=== PATIENT | male | born 1935 | race Caucasian/White ===

== ENCOUNTER → 2016-04-03 | Outpatient (CLI) | payer MEDICARE, OTHER ==
[2016-04-03 11:01] LABS: HEMATOCRIT 41.1 % (37.9-51.0); HEMOGLOBIN 14.2 g/dL (13.5-17.0); HGB HCT DIFFERENCE 1.5; MEAN CORPUSCULAR HEMOGLOBIN 32.7 pg (27.0-33.4); MEAN CORPUSCULAR HGB CONC 34.5 g/dL (32.0-36.0); MEAN CORPUSCULAR VOLUME 95 fl (80-97); RED BLOOD COUNT 4.33 10^6/uL (4.35-5.55); WHITE BLOOD COUNT 8.9 10^3/uL (4.0-10.5)
[2016-04-06 11:18] LABS: ANION GAP 12 (5-19); BLOOD UREA NITROGEN 16 mg/dL (7-20); CALCIUM 9.6 mg/dL (8.4-10.2); CARBON DIOXIDE 27 mmol/L (22-30); CHLORIDE 103 mmol/L (98-107); GLUCOSE 173 mg/dL (75-110); POTASSIUM 4.9 mmol/L (3.6-5.0); SODIUM 142.2 mmol/L (137-145)
== END ==
LOC: OD 09:42
PROVIDERS: ATTEND Internal Medicine Clinical Cardiac Electrophysiology
DX: Z01.812 Encounter for preprocedural laboratory examination (principal); I48.2 Chronic atrial fibrillation; I42.0 Dilated cardiomyopathy; I50.22 Chronic systolic (congestive) heart failure; I49.5 Sick sinus syndrome; I25.10 Atherosclerotic heart disease of native coronary artery without angina pectoris; E78.00 Pure hypercholesterolemia, unspecified; Z95.0 Presence of cardiac pacemaker
CPT/HCPCS: 36415; 80048; 85027; 85610

== ENCOUNTER → 2016-04-26 | Outpatient (CLI) | payer MEDICARE, OTHER ==
[2016-04-26 12:31] LABS: ABSOLUTE EOSINOPHILS # (AUTO) 0.2 10^3/uL (0.0-0.6); ABSOLUTE LYMPHOCYTES (AUTO) 1.6 10^3/uL (0.5-4.7); ABSOLUTE MONOCYTES (AUTO) 0.4 10^3/uL (0.1-1.4); ABSOLUTE NEUT (AUTO) 4.7 10^3/uL (1.7-8.2); BASOPHILS % (AUTO) 0.6 % (0-2); EOSINOPHILS % (AUTO) 3.4 % (0-6); HEMATOCRIT 43.4 % (37.9-51.0); HEMOGLOBIN 13.9 g/dL (13.5-17.0); HGB HCT DIFFERENCE -1.7; LYMPHOCYTES % (AUTO) 22.6 % (13-45); MEAN CORPUSCULAR HEMOGLOBIN 31.4 pg (27.0-33.4); MEAN CORPUSCULAR HGB CONC 32.1 g/dL (32.0-36.0); MEAN CORPUSCULAR VOLUME 98 fl (80-97); MONOCYTES % (AUTO) 6.4 % (3-13); RED BLOOD COUNT 4.44 10^6/uL (4.35-5.55); RED CELL DISTRIBUTION WIDTH 14.3 % (11.5-14.0)
[2016-04-26 12:45] LABS: APPEARANCE,URINE CLEAR; BILIRUBIN,URINE NEGATIVE (NEGATIVE); GLUCOSE, URINE NEGATIVE (NEGATIVE); KETONES,URINE NEGATIVE (NEGATIVE); LEUKOCYTE ESTERASE,URINE SMALL (NEGATIVE); NITRITE,URINE NEGATIVE (NEGATIVE); PROTEIN,URINE NEGATIVE (NEGATIVE)
[2016-04-26 12:49] LABS: ALANINE AMINOTRANSFERASE 25 U/L (21-72); ALBUMIN 4.2 g/dL (3.5-5.0); ALKALINE PHOSPHATASE 70 U/L (38-126); ANION GAP 15 (5-19); ASPARTATE AMINO TRANSFERASE 18 U/L (17-59); BILIRUBIN,TOTAL 1.9 mg/dL (0.2-1.3); BLOOD UREA NITROGEN 20 mg/dL (7-20); CALCIUM 9.6 mg/dL (8.4-10.2); CARBON DIOXIDE 26 mmol/L (22-30); CHLORIDE 102 mmol/L (98-107); CREATININE RESULT 1.21 mg/dL (0.52-1.25); GLUCOSE 143 mg/dL (75-110); POTASSIUM 4.9 mmol/L (3.6-5.0); SODIUM 142.8 mmol/L (137-145); TOTAL PROTEIN 7.2 g/dL (6.3-8.2)
== END ==
LOC: OD 11:25
PROVIDERS: ATTEND Internal Medicine Cardiovascular Disease
DX: Z79.01 Long term (current) use of anticoagulants (principal); Z79.899 Other long term (current) drug therapy
CPT/HCPCS: 36415; 80048; 80076; 81001; 82272; 85025; 85730

== ENCOUNTER → 2016-07-02 | Outpatient (CLI) | payer MEDICARE, OTHER | LOC: OD 09:02 | PROVIDERS: ATTEND Internal Medicine Cardiovascular Disease | DX: R06.02 Shortness of breath (principal) | CPT/HCPCS: 36415; 83880 ==

== ENCOUNTER → 2016-07-17 | Outpatient (CLI) | payer MEDICARE, OTHER ==
[2016-07-17 13:54] LABS: ABSOLUTE EOSINOPHILS # (AUTO) 0.2 10^3/uL (0.0-0.6); ABSOLUTE LYMPHOCYTES (AUTO) 1.6 10^3/uL (0.5-4.7); ABSOLUTE MONOCYTES (AUTO) 0.5 10^3/uL (0.1-1.4); ABSOLUTE NEUT (AUTO) 6.1 10^3/uL (1.7-8.2); BASOPHILS % (AUTO) 0.5 % (0-2); EOSINOPHILS % (AUTO) 2.6 % (0-6); HEMOGLOBIN 13.6 g/dL (13.5-17.0); HGB HCT DIFFERENCE 1.8; LYMPHOCYTES % (AUTO) 19.4 % (13-45); MEAN CORPUSCULAR HEMOGLOBIN 32.9 pg (27.0-33.4); MEAN CORPUSCULAR HGB CONC 34.9 g/dL (32.0-36.0); MEAN CORPUSCULAR VOLUME 94 fl (80-97); MONOCYTES % (AUTO) 6.3 % (3-13); RED BLOOD COUNT 4.14 10^6/uL (4.35-5.55); RED CELL DISTRIBUTION WIDTH 14.3 % (11.5-14.0); SEGMENTED NEUTROPHILS % (AUTO) 71.2 % (42-78); WHITE BLOOD COUNT 8.5 10^3/uL (4.0-10.5)
[2016-07-17 14:15] LABS: APPEARANCE,URINE CLEAR; BILIRUBIN,URINE NEGATIVE (NEGATIVE); GLUCOSE, URINE NEGATIVE (NEGATIVE); KETONES,URINE NEGATIVE (NEGATIVE); LEUKOCYTE ESTERASE,URINE TRACE (NEGATIVE); NITRITE,URINE NEGATIVE (NEGATIVE); PROTEIN,URINE NEGATIVE (NEGATIVE); URINE SPECIFIC GRAVITY 1.014
[2016-07-17 14:18] LABS: ALANINE AMINOTRANSFERASE 35 U/L (21-72); ALBUMIN 4.3 g/dL (3.5-5.0); ALKALINE PHOSPHATASE 59 U/L (38-126); ANION GAP 12 (5-19); ASPARTATE AMINO TRANSFERASE 27 U/L (17-59); BILIRUBIN,DIRECT 0.3 mg/dL (0.0-0.4); BILIRUBIN,TOTAL 2.6 mg/dL (0.2-1.3); BLOOD UREA NITROGEN 17 mg/dL (7-20); CALCIUM 9.4 mg/dL (8.4-10.2); CARBON DIOXIDE 24 mmol/L (22-30); CHLORIDE 106 mmol/L (98-107); GLUCOSE 100 mg/dL (75-110); POTASSIUM 4.6 mmol/L (3.6-5.0); SODIUM 142.2 mmol/L (137-145); TOTAL PROTEIN 6.8 g/dL (6.3-8.2)
== END ==
LOC: OD 12:25
PROVIDERS: ATTEND Internal Medicine Cardiovascular Disease
DX: Z79.01 Long term (current) use of anticoagulants (principal); Z79.899 Other long term (current) drug therapy
CPT/HCPCS: 36415; 80048; 80076; 81001; 82272; 85025; 85730

== ENCOUNTER → 2016-08-23 | Outpatient (CLI) | payer MEDICARE, OTHER ==
[2016-08-23 10:16] LABS: ANION GAP 12 (5-19); BLOOD UREA NITROGEN 19 mg/dL (7-20); CALCIUM 9.6 mg/dL (8.4-10.2); CARBON DIOXIDE 27 mmol/L (22-30); CHLORIDE 103 mmol/L (98-107); CREATININE RESULT 1.32 mg/dL (0.52-1.25); GLUCOSE 133 mg/dL (75-110); POTASSIUM 4.4 mmol/L (3.6-5.0)
[2016-08-23 10:17] LABS: ALANINE AMINOTRANSFERASE 35 U/L (21-72); ALBUMIN 4.3 g/dL (3.5-5.0); ALKALINE PHOSPHATASE 58 U/L (38-126); ASPARTATE AMINO TRANSFERASE 23 U/L (17-59); BILIRUBIN,DIRECT 0.6 mg/dL (0.0-0.4); BILIRUBIN,TOTAL 2.3 mg/dL (0.2-1.3); CHOLESTEROL 124.22 mg/dL (0-200); DIGOXIN 0.51 ng/mL (0.8-2.0); Direct HDL 29 mg/dL (>40); MAGNESIUM 2.4 mg/dL (1.6-2.3); TOTAL PROTEIN 7.4 g/dL (6.3-8.2); TRIGLYCERIDES 122 mg/dL (<150)
[2016-08-23 10:26] LABS: DIRECT LDL 66 mg/dL (<100)
== END ==
LOC: OD 08:46
PROVIDERS: ATTEND Internal Medicine Cardiovascular Disease
DX: E78.2 Mixed hyperlipidemia (principal); I50.22 Chronic systolic (congestive) heart failure; Z79.899 Other long term (current) drug therapy
CPT/HCPCS: 36415; 80048; 80061; 80076; 80162; 83735

== ENCOUNTER → 2016-09-24 | Outpatient (CLI) | payer MEDICARE, OTHER ==
[2016-09-24 10:43] LABS: ANION GAP 11 (5-19); BLOOD UREA NITROGEN 18 mg/dL (7-20); CALCIUM 9.4 mg/dL (8.4-10.2); CARBON DIOXIDE 27 mmol/L (22-30); CHLORIDE 104 mmol/L (98-107); CREATININE RESULT 1.15 mg/dL (0.52-1.25); GLUCOSE 128 mg/dL (75-110); MAGNESIUM 2.4 mg/dL (1.6-2.3); POTASSIUM 4.9 mmol/L (3.6-5.0); SODIUM 142.3 mmol/L (137-145)
== END ==
LOC: OD 09:18
PROVIDERS: ATTEND Internal Medicine Cardiovascular Disease
DX: N18.3 Chronic kidney disease, stage 3 (moderate) (principal); Z79.899 Other long term (current) drug therapy
CPT/HCPCS: 36415; 80048; 83735

== ENCOUNTER → 2016-11-14 | Outpatient (CLI) | payer MEDICARE, OTHER ==
[2016-11-14 10:40] LABS: ABSOLUTE EOSINOPHILS # (AUTO) 0.3 10^3/uL (0.0-0.6); ABSOLUTE LYMPHOCYTES (AUTO) 1.7 10^3/uL (0.5-4.7); ABSOLUTE MONOCYTES (AUTO) 0.5 10^3/uL (0.1-1.4); ABSOLUTE NEUT (AUTO) 4.8 10^3/uL (1.7-8.2); BASOPHILS % (AUTO) 0.6 % (0-2); EOSINOPHILS % (AUTO) 3.6 % (0-6); HEMATOCRIT 41.5 % (37.9-51.0); HEMOGLOBIN 14.3 g/dL (13.5-17.0); HGB HCT DIFFERENCE 1.4; LYMPHOCYTES % (AUTO) 23.4 % (13-45); MEAN CORPUSCULAR HEMOGLOBIN 33.6 pg (27.0-33.4); MEAN CORPUSCULAR HGB CONC 34.4 g/dL (32.0-36.0); MEAN CORPUSCULAR VOLUME 98 fl (80-97); MONOCYTES % (AUTO) 7.1 % (3-13); RED BLOOD COUNT 4.26 10^6/uL (4.35-5.55); RED CELL DISTRIBUTION WIDTH 14.2 % (11.5-14.0); SEGMENTED NEUTROPHILS % (AUTO) 65.3 % (42-78); WHITE BLOOD COUNT 7.4 10^3/uL (4.0-10.5)
[2016-11-14 10:43] LABS: APPEARANCE,URINE CLEAR; BILIRUBIN,URINE NEGATIVE (NEGATIVE); GLUCOSE, URINE NEGATIVE (NEGATIVE); KETONES,URINE NEGATIVE (NEGATIVE); LEUKOCYTE ESTERASE,URINE TRACE (NEGATIVE); NITRITE,URINE NEGATIVE (NEGATIVE); PROTEIN,URINE NEGATIVE (NEGATIVE); URINE SPECIFIC GRAVITY 1.014
[2016-11-14 11:03] LABS: ALANINE AMINOTRANSFERASE 29 U/L (21-72); ALBUMIN 4.4 g/dL (3.5-5.0); ALKALINE PHOSPHATASE 63 U/L (38-126); ANION GAP 10 (5-19); ASPARTATE AMINO TRANSFERASE 25 U/L (17-59); BILIRUBIN,DIRECT 0.6 mg/dL (0.0-0.4); BILIRUBIN,TOTAL 2.6 mg/dL (0.2-1.3); BLOOD UREA NITROGEN 18 mg/dL (7-20); CALCIUM 9.7 mg/dL (8.4-10.2); CARBON DIOXIDE 29 mmol/L (22-30); CHLORIDE 103 mmol/L (98-107); CREATININE RESULT 1.13 mg/dL (0.52-1.25); GLUCOSE 120 mg/dL (75-110); POTASSIUM 4.9 mmol/L (3.6-5.0); SODIUM 141.6 mmol/L (137-145); TOTAL PROTEIN 7.5 g/dL (6.3-8.2)
== END ==
LOC: OD 09:09
PROVIDERS: ATTEND Internal Medicine Cardiovascular Disease
DX: Z79.01 Long term (current) use of anticoagulants (principal); Z79.899 Other long term (current) drug therapy
CPT/HCPCS: 36415; 80048; 80076; 81001; 82272; 85025; 85730

== ENCOUNTER → 2017-03-20 | Outpatient (CLI) | payer MEDICARE, OTHER ==
[2017-03-20 11:39] LABS: Direct HDL 26 mg/dL (>40); TRIGLYCERIDES 153 mg/dL (<150)
[2017-03-20 11:49] LABS: DIRECT LDL 78 mg/dL (<100)
[2017-03-20 11:53] LABS: VLDL CHOLESTEROL 30.6 mg/dL (10-31)
== END ==
LOC: OD 10:26
PROVIDERS: ATTEND Internal Medicine Cardiovascular Disease
DX: I25.10 Atherosclerotic heart disease of native coronary artery without angina pectoris (principal); E78.2 Mixed hyperlipidemia
CPT/HCPCS: 36415; 80061

== ENCOUNTER → 2017-04-30 | Outpatient (CLI) | payer MEDICARE, OTHER ==
[2017-04-30 11:00] LABS: ABSOLUTE EOSINOPHILS # (AUTO) 0.3 10^3/uL (0.0-0.6); ABSOLUTE LYMPHOCYTES (AUTO) 1.6 10^3/uL (0.5-4.7); ABSOLUTE MONOCYTES (AUTO) 0.6 10^3/uL (0.1-1.4); ABSOLUTE NEUT (AUTO) 5.8 10^3/uL (1.7-8.2); BASOPHILS % (AUTO) 0.4 % (0-2); EOSINOPHILS % (AUTO) 3.5 % (0-6); HEMATOCRIT 40.8 % (37.9-51.0); HEMOGLOBIN 14.4 g/dL (13.5-17.0); LYMPHOCYTES % (AUTO) 19.4 % (13-45); MEAN CORPUSCULAR HEMOGLOBIN 33.6 pg (27.0-33.4); MEAN CORPUSCULAR HGB CONC 35.3 g/dL (32.0-36.0); MEAN CORPUSCULAR VOLUME 95 fl (80-97); MONOCYTES % (AUTO) 7.2 % (3-13); PLATELET COUNT 123 10^3/uL (150-450); RED BLOOD COUNT 4.28 10^6/uL (4.35-5.55); RED CELL DISTRIBUTION WIDTH 14.2 % (11.5-14.0); SEGMENTED NEUTROPHILS % (AUTO) 69.5 % (42-78); TOTAL CELLS COUNTED % (AUTO) 100 %; WHITE BLOOD COUNT 8.3 10^3/uL (4.0-10.5)
[2017-04-30 11:08] LABS: APPEARANCE,URINE CLEAR; BILIRUBIN,URINE NEGATIVE (NEGATIVE); COLOR,URINE STRAW; GLUCOSE, URINE NEGATIVE (NEGATIVE); KETONES,URINE NEGATIVE (NEGATIVE); LEUKOCYTE ESTERASE,URINE NEGATIVE (NEGATIVE); NITRITE,URINE NEGATIVE (NEGATIVE); PROTEIN,URINE NEGATIVE (NEGATIVE); URINE SPECIFIC GRAVITY 1.005; UROBILINOGEN,URINE NEGATIVE mg/dL (<2.0)
[2017-04-30 12:18] LABS: ALANINE AMINOTRANSFERASE 25 U/L (21-72); ALBUMIN 4.6 g/dL (3.5-5.0); ALKALINE PHOSPHATASE 59 U/L (38-126); ANION GAP 12 (5-19); ASPARTATE AMINO TRANSFERASE 24 U/L (17-59); BILIRUBIN,DIRECT 0.3 mg/dL (0.0-0.4); BLOOD UREA NITROGEN 18 mg/dL (7-20); CALCIUM 9.6 mg/dL (8.4-10.2); CARBON DIOXIDE 23 mmol/L (22-30); CHLORIDE 104 mmol/L (98-107); GLUCOSE 100 mg/dL (75-110); POTASSIUM 4.3 mmol/L (3.6-5.0); SODIUM 138.9 mmol/L (137-145); TOTAL PROTEIN 7.4 g/dL (6.3-8.2)
== END ==
LOC: OD 09:55
PROVIDERS: ATTEND Internal Medicine Cardiovascular Disease
DX: I48.2 Chronic atrial fibrillation (principal); Z79.01 Long term (current) use of anticoagulants; Z79.899 Other long term (current) drug therapy
CPT/HCPCS: 36415; 80048; 80076; 81001; 82272; 85025; 85730

== ENCOUNTER → 2017-05-13 | Outpatient (CLI) | payer MEDICARE, OTHER ==
[2017-05-13 12:42] LABS: ANION GAP 10 (5-19); BLOOD UREA NITROGEN 17 mg/dL (7-20); CALCIUM 9.9 mg/dL (8.4-10.2); CARBON DIOXIDE 28 mmol/L (22-30); CHLORIDE 103 mmol/L (98-107); GLUCOSE 84 mg/dL (75-110); POTASSIUM 4.9 mmol/L (3.6-5.0); SODIUM 140.8 mmol/L (137-145)
== END ==
LOC: OD 10:35
PROVIDERS: ATTEND Internal Medicine Cardiovascular Disease
DX: I50.22 Chronic systolic (congestive) heart failure (principal); R06.02 Shortness of breath; I48.2 Chronic atrial fibrillation
CPT/HCPCS: 36415; 80048; 83880

== ENCOUNTER → 2017-06-10 | Outpatient (CLI) | payer MEDICARE, OTHER ==
[2017-06-10 12:40] LABS: ANION GAP 10 (5-19); BLOOD UREA NITROGEN 18 mg/dL (7-20); CALCIUM 9.5 mg/dL (8.4-10.2); CARBON DIOXIDE 27 mmol/L (22-30); CHLORIDE 105 mmol/L (98-107); GLUCOSE 100 mg/dL (75-110); POTASSIUM 4.6 mmol/L (3.6-5.0)
== END ==
LOC: OD 10:32
PROVIDERS: ATTEND Internal Medicine Cardiovascular Disease
DX: I50.22 Chronic systolic (congestive) heart failure (principal); I48.0 Paroxysmal atrial fibrillation; R06.02 Shortness of breath
CPT/HCPCS: 36415; 80048; 83880

== ENCOUNTER 2017-06-28 23:05 | Inpatient (IN) | payer MEDICARE, OTHER ==
[2017-06-29] MEDS ORDERED: LEVOFLOXACIN 750 MG/D5W RTU 750 MG/150 ML RTUPB IV ONE (00:27)
[2017-06-29] MEDS ORDERED: NORMAL SALINE 1000 ML 500 ML IV PRN (00:32)
--- NOTE | 2017-06-29 00:32 | ER Document Report ---
ED GI/ - General Chief Complaint: Testicular Swelling Stated Complaint: TESTICULAR PAIN Time Seen by Provider: 06/29/17 00:27 Notes: History of complain-81 years old male presents today with 3 day history of right scrotal swelling redness, pain and fever. He thinks he must have scratched it. Denies any trauma. REVIEW OF SYSTEMS: CONSTITUTIONAL : chills, or sweats. Denies recent illness. EENT: Denies eye, ear, throat, or mouth pain or symptoms. Denies nasal or sinus congestion or discharge. Denies throat, tongue, or mouth swelling or difficulty swallowing. CARDIOVASCULAR: Denies chest pain. Denies palpitations or racing or irregular heart beat. Denies ankle edema. RESPIRATORY: Denies cough, cold, or chest congestion. Denies shortness of breath, difficulty breathing, or wheezing. GASTROINTESTINAL: Denies abdominal pain or distention. Denies nausea, vomiting , or diarrhea. Denies blood in vomitus, stools, or per rectum. Denies black, tarry stools. Denies constipation. GENITOURINARY: Denies difficulty urinating, painful urination, burning, frequency, blood in urine, or discharge. MUSCULOSKELETAL: Denies back or neck pain or stiffness. Denies joint pain or swelling. SKIN: Denies rash, lesions or sores. HEMATOLOGIC : Denies easy bruising or bleeding. LYMPHATIC: Denies swollen, enlarged glands. NEUROLOGICAL: Denies confusion or altered mental status. Denies passing out or loss of consciousness. Denies dizziness or lightheadedness. Denies headache. Denies weakness or paralysis or loss of use of either side. Denies problems with gait or speech. Denies sensory loss, numbness, or tingling. Denies seizures. PSYCHIATRIC: Denies anxiety or stress. Denies depression, suicidal ideation, or homicidal ideation. ALL OTHER SYSTEMS REVIEWED AND NEGATIVE. Dictation was performed using [employer] voice recognition software PHYSICAL EXAMINATION: GENERAL: Well-appearing, well-nourished and in no acute distress. HEAD: Atraumatic, normocephalic. EYES: Pupils equal round and reactive to light, extraocular movements intact, sclera anicteric, conjunctiva are normal. ENT: Nares patent, oropharynx clear without exudates. Moist mucous membranes. NECK: Normal range of motion, supple without lymphadenopathy LUNGS: Breath sounds clear to auscultation bilaterally and equal. No wheezes rales or rhonchi. HEART: Regular rate and rhythm without murmurs ABDOMEN: Soft, nontender, nondistended abdomen. No guarding, no rebound. No masses appreciated. Examination of genital-diffuse peritoneal, pubic region erythema was noted which is warm and tender to touch. Scrotal swelling particularly on the right side which is warm and tender to touch. Penile gland is edematous and erythematous is warm. Musculoskeletal: Normal range of motion, no pitting or edema. No cyanosis. NEUROLOGICAL: Cranial nerves grossly intact. Normal speech, normal gait. Normal sensory, motor exams PSYCH: Normal mood, normal affect. SKIN: Warm, Dry, normal turgor, no rashes or lesions noted. TRAVEL OUTSIDE OF THE [place] IN LAST 30 DAYS: No - Related Data Allergies/Adverse Reactions: acetaminophen [Acetaminophen] Allergy (Verified 11/17/11 12:46) aspirin [Aspirin] Allergy (Verified 11/17/11 12:46) Past Medical History - General Information source: Patient - Social History Smoking Status: Never Smoker Cigarette use (# per day): No Chew tobacco use (# tins/day): No Frequency of alcohol use: Rare Drug Abuse: None Family History: Reviewed & Not Pertinent - Past Medical History Cardiac Medical History: Reports: Hx Heart Attack - "silent", Hx Hypercholesterolemia, Hx Hypertension Past Surgical History: Reports: Hx Cardiac Surgery - triple bypass, pacemaker, Hx Cholecystectomy - Immunizations Hx Diphtheria, Pertussis, Tetanus Vaccination: No Review of Systems - Review of Systems Notes: As per history of complain Course - Re-evaluation Re-evalutation: 06/29/17 01:59 Case was discussed with the hospitalist service. Currently being admitted. Given IV Levaquin - Laboratory Result Diagrams: 06/29/17 00:35 06/29/17 00:35 Laboratory results interpreted by me: 06/29/17 06/29/17 06/29/17 00:35 00:35 00:35 WBC 20.6 H RBC 4.07 L RDW 14.6 H Plt Count 110 L Seg Neuts % (Manual) 79 H Band Neutrophils % 1 L Abs Neuts (Manual) 16.5 H PT 17.9 H BUN 25 H Creatinine 1.35 H Est GFR (Non-Af Amer) 50 L Glucose 137 H Total Bilirubin 5.5 H Direct Bilirubin 0.5 H - Diagnostic Test Radiology reviewed: Reports reviewed - Scrotal ultrasound reported by radiologist as Dino revealed no torsion. Discharge - Discharge Clinical Impression: Cellulitis of scrotum Condition: Fair Disposition: ADMITTED INPATIENT Unit Admitted: Medical Floor
[2017-06-29 00:55] LABS: HEMATOCRIT 39.5 % (37.9-51.0); HEMOGLOBIN 13.5 g/dL (13.5-17.0); MEAN CORPUSCULAR HEMOGLOBIN 33.2 pg (27.0-33.4); MEAN CORPUSCULAR HGB CONC 34.2 g/dL (32.0-36.0); MEAN CORPUSCULAR VOLUME 97 fl (80-97); PLATELET COUNT 110 10^3/uL (150-450); RED BLOOD COUNT 4.07 10^6/uL (4.35-5.55); RED CELL DISTRIBUTION WIDTH 14.6 % (11.5-14.0); WHITE BLOOD COUNT 20.6 10^3/uL (4.0-10.5)
[2017-06-29 00:59] LABS: INTERNATIONAL RATION (INR) 1.39; PROTHROMBIN TIME 17.9 SEC (11.4-15.4)
[2017-06-29 01:02] LABS: VENOUS BLOOD BASE EXCESS 2.3 mmol/L; VENOUS BLOOD PCO2 47.6 mmHg (35-63); VENOUS BLOOD PH 7.39 (7.30-7.42)
[2017-06-29 01:10] LABS: ALANINE AMINOTRANSFERASE 25 U/L (21-72); ALBUMIN 4.1 g/dL (3.5-5.0); ALKALINE PHOSPHATASE 55 U/L (38-126); ASPARTATE AMINO TRANSFERASE 18 U/L (17-59); BILIRUBIN,DIRECT 0.5 mg/dL (0.0-0.4); BILIRUBIN,TOTAL 5.5 mg/dL (0.2-1.3); BLOOD UREA NITROGEN 25 mg/dL (7-20); CALCIUM 9.2 mg/dL (8.4-10.2); CHLORIDE 102 mmol/L (98-107); GLUCOSE 137 mg/dL (75-110); POTASSIUM 4.2 mmol/L (3.6-5.0); SODIUM 138.8 mmol/L (137-145); TOTAL PROTEIN 6.9 g/dL (6.3-8.2)
[2017-06-29 01:12] LABS: ANION GAP 10 (5-19); CARBON DIOXIDE 27 mmol/L (22-30)
[2017-06-29 01:15] LABS: ABSOLUTE LYMPHOCYTES# (MANUAL) 2.9 10^3/uL (0.5-4.7); ABSOLUTE MONOCYTES # (MANUAL) 1.2 10^3/uL (0.1-1.4); ABSOLUTE NEUTROPHILS# (MANUAL) 16.5 10^3/uL (1.7-8.2); BAND NEUTROPHILS % (MANUAL) 1 % (3-5); BASOPHILS % (MANUAL) 0 % (0-2); EOSINOPHILS % (MANUAL) 0 % (0-6); LYMPHOCYTES % (MANUAL) 14 % (13-45); MONOCYTES % (MANUAL) 6 % (3-13); SEGMENTED NEUTROPHILS % (MAN) 79 % (42-78); TOTAL CELLS COUNTED 100
[2017-06-29 01:18] LABS: ANISOCYTOSIS SLIGHT; PLATELET COMMENT DECREASED; POIKILOCYTOSIS SLIGHT; POLYCHROMASIA SLIGHT; TEAR DROP CELLS SLIGHT; TOXIC GRANULATION SLIGHT
--- NOTE | 2017-06-29 01:39 | RADIOLOGY REPORT (SQ) ---
EXAM DESCRIPTION: U/S SCROTUM W/DOPPLER CLINICAL HISTORY: 81 years, Male, Rule out testicular torsion COMPARISON: None. LIMITATIONS: None. FINDINGS: 3.8 cm right testis, 4.6 cm left testis, and epididymides appear normal size, shape, echotexture, and vascularity. Large bilateral hydroceles measure up to 7 cm each. IMPRESSION: 1. Large bilateral hydroceles. 2. Normal testes. No evidence of torsion.
[2017-06-29] MEDS ORDERED: MAG HYDROX/AL HYDROX/SIMETH SUSP 30 ML UDCUP PO PRN (01:59)
[2017-06-29] MEDS ORDERED: MAGNESIUM HYDROXIDE SUSP 30 ML UDCUP PO PRN (01:59)
[2017-06-29] MEDS ORDERED: NORMAL SALINE 1000 ML 1,000 ML IV PRN (02:00)
[2017-06-29] MEDS ORDERED: KETOROLAC TROMETHAMINE INJ/PF 30 MG/1 ML SDV IV PRN (02:02)
[2017-06-29] MEDS ORDERED: DEXTROSE 40% GEL 15 GM TUBE PO PRN ×2 (03:32)
[2017-06-29] MEDS ORDERED: INSULIN LISPRO 100 UNIT/ML 3 ML VIAL SUBCUT PRN (03:32)
[2017-06-29] MEDS ORDERED: DEXTROSE 50%-WATER 25 GM/50 ML DISP.SYRIN IV PRN ×2 (03:32)
[2017-06-29] MEDS ORDERED: GLUCAGON,HUMAN RECOMB 1 MG INJ IM PRN (03:32)
--- NOTE | 2017-06-29 03:32 | PDOC H&P ---
History of Present Illness Admission Date/PCP: 06/29/17 02:22 ALEXANDER GORDON Patient complains of: Scrotal swelling and pain History of Present Illness: ARNEL DENG is a 81 year old male with a past medical history of diabetes, congestive heart failure, atrial fibrillation status post pacemaker placement and on Eliquis. Patient presents with 3 days of scrotal swelling and pain associated with fever. Denying change in urination or medications. In the emergency room is found to have bilateral hydrocele but negative for torsion. He started on empiric antibiotics and for the hospitalist for admission. Patient denies previous episode or recent antibiotic use. He otherwise feels well Past Medical History Cardiac Medical History: Reports: Atrial Fibrillation, Congestive Heart Failure , Myocardial Infarction - "silent", Hyperlipidema, Hypertension Endocrine Medical History: Reports: Diabetes Mellitus Type 2 Renal/ Medical History: Reports: None Malignancy Medical History: Reports: None GI Medical History: Reports: None Musculoskeltal Medical History: Reports: None Skin Medical History: Reports: None Psychiatric Medical History: Denies: Alcohol Dependency, Tobacco Dependency Traumatic Medical History: Reports: None Hematology: Reports: None Infectious Medical History: Reports: None Past Surgical History Past Surgical History: Reports: Cholecystectomy, Pacemaker Social History Information Source: Patient Smoking Status: Unknown if Ever Smoked Frequency of Alcohol Use: None Drugs: None - Advance Directive Resuscitation Status: Full Code Family History Family History: Hypertension Parental Family History Reviewed: Yes Children Family History Reviewed: Yes Sibling(s) Family History Reviewed.: Yes Medication/Allergy Home Medications: Cetirizine HCl [Zyrtec 10 mg Tablet] 10 mg PO DAILY 11/17/11 Clopidogrel Bisulfate [Plavix 75 Mg Tablet] 75 mg PO DAILY 11/17/11 Fish Oil/E/Fatty Acid5/[id number] [Flax, Fish & Borage Oil Sofgel] 1 each PO Furosemide [Lasix 20 mg Tablet] 20 mg PO QAM 11/17/11 Lisinopril [Prinivil 40 mg Tablet] 40 mg PO DAILY 11/17/11 Metoprolol Succinate [Toprol XL 100 mg Tablet] 100 mg PO DAILY 11/17/11 Allergies/Adverse Reactions: acetaminophen [Acetaminophen] Allergy (Verified 11/17/11 12:46) aspirin [Aspirin] Allergy (Verified 11/17/11 12:46) Review of Systems Constitutional: ABSENT: chills, fever(s), headache(s), weight gain, weight loss Eyes: ABSENT: visual disturbances Ears: ABSENT: hearing changes Cardiovascular: ABSENT: chest pain, dyspnea on exertion, edema, orthropnea, palpitations Respiratory: ABSENT: cough, hemoptysis Gastrointestinal: ABSENT: abdominal pain, constipation, diarrhea, hematemesis, hematochezia, nausea, vomiting Genitourinary: ABSENT: dysuria, hematuria Musculoskeletal: ABSENT: joint swelling Integumentary: ABSENT: rash, wounds Neurological: ABSENT: abnormal gait, abnormal speech, confusion, dizziness, focal weakness, syncope Psychiatric: ABSENT: anxiety, depression, homidical ideation, suicidal ideation Endocrine: ABSENT: cold intolerance, heat intolerance, polydipsia, polyuria Hematologic/Lymphatic: ABSENT: easy bleeding, easy bruising Physical Exam Vital Signs: Temp Pulse Resp BP Pulse Ox 20 128/48 H 95 06/29/17 02:06 06/29/17 03:01 06/29/17 03:01 General appearance: PRESENT: cooperative, mild distress, well-developed, well- nourished. ABSENT: disheveled Head exam: PRESENT: atraumatic, normocephalic Eye exam: PRESENT: conjunctiva pink, EOMI, PERRLA, scleral icterus. ABSENT: conjunctival injection Ear exam: PRESENT: normal external ear exam Mouth exam: PRESENT: moist, tongue midline Neck exam: ABSENT: carotid bruit, JVD, lymphadenopathy, thyromegaly Respiratory exam: PRESENT: clear to auscultation barbie. ABSENT: rales, rhonchi, wheezes Cardiovascular exam: PRESENT: RRR. ABSENT: diastolic murmur, rubs, systolic murmur Pulses: PRESENT: normal dorsalis pedis pul Vascular exam: PRESENT: normal capillary refill GI/Abdominal exam: PRESENT: normal bowel sounds, soft. ABSENT: distended, guarding, mass, organolmegaly, rebound, tenderness Rectal exam: PRESENT: deferred Gentrourinary exam: PRESENT: erythema, scrotal swelling, testicular tenderness. ABSENT: ecchymosis, lacerations, lesions, urethral discharge, indwelling catheter Extremities exam: PRESENT: +1 edema Musculoskeletal exam: PRESENT: ambulatory, full ROM. ABSENT: deformity, dislocation Neurological exam: PRESENT: alert, awake, oriented to person, oriented to place , oriented to time, oriented to situation, CN II-XII grossly intact. ABSENT: motor sensory deficit Psychiatric exam: PRESENT: appropriate affect, normal mood. ABSENT: homicidal ideation, suicidal ideation Skin exam: PRESENT: erythema, jaundice, warm. ABSENT: mottled, normal color, pallor, petechiae, rash, skin tears, urticaria, vesicles Results Impressions: Scrotum Ultrasound 06/29/17 00:29 IMPRESSION: 1. Large bilateral hydroceles. 2. Normal testes. No evidence of torsion. Assessment & Plan - Diagnosis (1) Cellulitis of scrotum Is this a current diagnosis for this admission?: Yes Plan: No open lesion or torsion, empiric antibiotics, elevation and follow-up CBC with blood culture. (2) Hyperbilirubinemia Is this a current diagnosis for this admission?: Yes Plan: Unclear cause we will discontinue diabetic oral hypoglycemic and reevaluate (3) Diabetes Is this a current diagnosis for this admission?: Yes Plan: Evaluate A1c and Humalog sliding scale as needed - Time Time Spent: 30 to 50 Minutes - Inpatient Certification Medical Necessity: Significant Comorbidiites Make Outpatient Treatment Too Risky , Need Close Monitoring Due to Risk of Patient Decompensation
[2017-06-29 04:40] LABS: APPEARANCE,URINE CLEAR; BILIRUBIN,URINE NEGATIVE (NEGATIVE); COLOR,URINE AMBER; GLUCOSE, URINE NEGATIVE (NEGATIVE)
[2017-06-29 04:41] LABS: KETONES,URINE NEGATIVE (NEGATIVE); LEUKOCYTE ESTERASE,URINE SMALL (NEGATIVE); NITRITE,URINE NEGATIVE (NEGATIVE); PROTEIN,URINE 30 mg/dL (NEGATIVE); URINE SPECIFIC GRAVITY 1.021
[2017-06-29 06:02] LABS: ABSOLUTE BASOPHILS # (AUTO) 0.1 10^3/uL (0.0-0.2); ABSOLUTE LYMPHOCYTES (AUTO) 1.7 10^3/uL (0.5-4.7); ABSOLUTE MONOCYTES (AUTO) 1.6 10^3/uL (0.1-1.4); ABSOLUTE NEUT (AUTO) 15.9 10^3/uL (1.7-8.2); BASOPHILS % (AUTO) 0.4 % (0-2); EOSINOPHILS % (AUTO) 0.1 % (0-6); HEMATOCRIT 37.1 % (37.9-51.0); HEMOGLOBIN 12.7 g/dL (13.5-17.0); LYMPHOCYTES % (AUTO) 8.8 % (13-45); MEAN CORPUSCULAR HEMOGLOBIN 33.1 pg (27.0-33.4); MEAN CORPUSCULAR HGB CONC 34.2 g/dL (32.0-36.0); MEAN CORPUSCULAR VOLUME 97 fl (80-97); MONOCYTES % (AUTO) 8.1 % (3-13); PLATELET COUNT 101 10^3/uL (150-450); RED BLOOD COUNT 3.83 10^6/uL (4.35-5.55); RED CELL DISTRIBUTION WIDTH 14.5 % (11.5-14.0); SEGMENTED NEUTROPHILS % (AUTO) 82.6 % (42-78); TOTAL CELLS COUNTED % (AUTO) 100 %; WHITE BLOOD COUNT 19.3 10^3/uL (4.0-10.5)
[2017-06-29] MEDS: HEPARIN SOD (PORCINE) 5,000 UNIT/ML 1 ML SYRINGE SUBCUT SCH ×2 (06:10→14:37)
[2017-06-29 06:37] LABS: ANION GAP 9 (5-19); BLOOD UREA NITROGEN 25 mg/dL (7-20); CALCIUM 9.1 mg/dL (8.4-10.2); CARBON DIOXIDE 25 mmol/L (22-30); CHLORIDE 102 mmol/L (98-107); GLUCOSE 115 mg/dL (75-110); POTASSIUM 4.2 mmol/L (3.6-5.0); SODIUM 136.4 mmol/L (137-145)
--- NOTE | 2017-06-29 09:14 | RADIOLOGY REPORT (SQ) ---
EXAM DESCRIPTION: CT ABD/PELVIS WITH IV ONLY COMPLETED DATE/TIME: 06/29/2017 9:01 am REASON FOR STUDY: elevated bilirubin COMPARISON: None. TECHNIQUE: CT scan of the abdomen and pelvis performed using helical scanning technique with dynamic intravenous contrast injection. No oral contrast. Images reviewed with lung, soft tissue, and bone windows. Reconstructed coronal and sagittal MPR images reviewed. Delayed images for evaluation of the urinary system also acquired. All images stored on PACS. All CT scanners at this facility use dose modulation, iterative reconstruction, and/or weight based d osing when appropriate to reduce radiation dose to as low as reasonably achievable (ALARA). [facility]: Dose Right [facility]: CareDose [facility]: Dose Right [facility]: Teradose 4D [facility]: [employer] CONTRAST TYPE AND DOSE: contrast/concentration: Isovue 370.00 mg/ml; Total Contrast Delivered: 100.0 ml; Total Saline Delivered: 72.1 ml RENAL FUNCTION: Creatinine 1.28 RADIATION DOSE: CT Rad equipment meets quality standard of care and radiation dose reduction techniq ues were employed. CTDIvol: 20.5 - 25.0 mGy. DLP: 2571 mGy-cm.. LIMITATIONS: None. FINDINGS: LOWER CHEST: No significant findings. No nodules or infiltrates. LIVER: Normal size. No masses. No dilated ducts. SPLEEN: Normal size. No focal lesions. PANCREAS: No masses. No significant calcifications. No adjacent inflammation or peripancreatic fluid collections. Pancreatic duct not dilated. GALLBLADDER: Surgically absent. ADRENAL GLANDS: No significant masses or asymmetry. RIGHT KIDNEY AND URETER: No solid masses. No significant calcifications. No hydronephrosis or hyd roureter. LEFT KIDNEY AND URETER: No solid masses. No significant calcifications. No hydronephrosis or hydr oureter. AORTA AND VESSELS: Calcification. Ectasia. No significant focal aneurysm. RETROPERITONEUM: No retroperitoneal adenopathy, hemorrhage or masses. BOWEL AND PERITONEAL CAVITY: No masses or inflammatory changes. No free fluid or peritoneal masses. APPENDIX: Not visualized. PELVIS: No mass. No free fluid. Normal bladder. ABDOMINAL WALL: No masses. No hernias. BONES: No significant or acute findings. OTHER: No other significant finding. IMPRESSION: NO SIGNIFICANT OR ACUTE FINDING IN THE ABDOMEN OR PELVIS ON CT SCAN WITH IV CONTRAST. TECHNICAL DOCUMENTATION: JOB ID: [id number] Quality ID # [id number]: Final reports with documentation of one or more dose reduction techniques (e.g., Au tomated exposure control, adjustment of the mA and/or kV according to patient size, use of iterative reconstruction technique) 2010 [employer]- All Rights Reserved Reading location - IP/workstation name: [email or web address]
[2017-06-29] MEDS: METOPROLOL SUCCINATE 50 MG TAB.SR.24H PO SCH (09:45)
--- NOTE | 2017-06-29 09:45 | PDOC PROGRESS REPORT ---
Subjective Progress Note for:: 06/29/17 Subjective:: The patient is resting in his bed. He seems to be a little confused although he is alert and oriented 3. He states he did not get any sleep last night and he is just tired at this point. He has not had any fever or shaking chills that he is aware of. No chest pain or heart palpitations. He does not complain of shortness of breath. No nausea vomiting or diarrhea. No urinary complaints. He does complain of significant scrotal pain. He states that it is worsened to the point that he had to present to the emergency room. Reason For Visit: SCROTAL CELLULITIS Physical Exam Vital Signs: Temp Pulse Resp BP Pulse Ox 29 H 121/57 L 92 06/29/17 09:00 06/29/17 07:01 06/29/17 09:00 Intake & Output 06/28/17 06/29/17 06/30/17 06:59 06:59 06:59 Weight 111.13 kg General appearance: PRESENT: no acute distress, obese, well-developed, well- nourished Head exam: PRESENT: atraumatic, normocephalic Mouth exam: PRESENT: moist, tongue midline Respiratory exam: PRESENT: clear to auscultation barbie. ABSENT: rales, rhonchi, wheezes Cardiovascular exam: PRESENT: RRR. ABSENT: diastolic murmur, rubs, systolic murmur GI/Abdominal exam: PRESENT: normal bowel sounds, soft, other - His abdomen is obese. ABSENT: distended, guarding, mass, organolmegaly, rebound, tenderness Rectal exam: PRESENT: deferred Gentrourinary exam: PRESENT: scrotal swelling, other - The patient has significant scrotal and penile erythema and swelling. His scrotum is tender to palpation bilaterally Extremities exam: PRESENT: other - The patient has mild pitting edema that extends up into his thighs. Musculoskeletal exam: PRESENT: ambulatory Neurological exam: PRESENT: alert, awake, oriented to person, oriented to place , oriented to time, oriented to situation, CN II-XII grossly intact. ABSENT: motor sensory deficit Psychiatric exam: PRESENT: appropriate affect, normal mood. ABSENT: homicidal ideation, suicidal ideation Skin exam: PRESENT: dry, intact, warm. ABSENT: cyanosis, rash Results Laboratory Results: 06/29/17 05:50 06/29/17 05:50 06/29/17 06/29/17 06/29/17 04:15 05:50 05:50 WBC 19.3 H RBC 3.83 L Hgb 12.7 L Hct 37.1 L MCV 97 MCH 33.1 MCHC 34.2 RDW 14.5 H Plt Count 101 L Seg Neutrophils % 82.6 H Lymphocytes % 8.8 L Monocytes % 8.1 Eosinophils % 0.1 Basophils % 0.4 Absolute Neutrophils 15.9 H Absolute Lymphocytes 1.7 Absolute Monocytes 1.6 H Absolute Eosinophils 0.0 Absolute Basophils 0.1 Sodium 136.4 L Potassium 4.2 Chloride 102 Carbon Dioxide 25 Anion Gap 9 BUN 25 H Creatinine 1.28 H Est GFR ( Amer) > 60 Est GFR (Non-Af Amer) 54 L Glucose 115 H Calcium 9.1 Urine Color FRANKI Urine Appearance CLEAR Urine pH 6.0 Ur Specific Dickens 1.021 Urine Protein 30 H Urine Glucose (UA) NEGATIVE Urine Ketones NEGATIVE Urine Blood NEGATIVE Urine Nitrite NEGATIVE Ur Leukocyte Esterase SMALL H Urine WBC (Auto) 10 Urine RBC (Auto) 3 Impressions: Scrotum Ultrasound 06/29/17 00:29 IMPRESSION: 1. Large bilateral hydroceles. 2. Normal testes. No evidence of torsion. Abdomen/Pelvis CT 06/29/17 08:19 IMPRESSION: NO SIGNIFICANT OR ACUTE FINDING IN THE ABDOMEN OR PELVIS ON CT SCAN WITH IV CONTRAST. Assessment & Plan - Diagnosis (1) Cellulitis of scrotum Is this a current diagnosis for this admission?: Yes Plan: For now he will continue IV Levaquin. This is the first full day of treatment. I have a low threshold for broadening his antibiotics if he does not improve. I have consulted urology for their recommendations and we certainly look forward to their input. (2) Hyperbilirubinemia Is this a current diagnosis for this admission?: Yes Plan: CT scan of the abdomen and pelvis was unremarkable. He will have a liver panel drawn tomorrow. This may be due to his acute illness or possibly medications. His oral anti-hypoglycemics have been held. (3) Diabetes Is this a current diagnosis for this admission?: Yes Plan: Continue sliding-scale insulin for now (4) Atrial fibrillation Qualifiers: Atrial fibrillation type: paroxysmal Qualified Code(s): I48.0 - Paroxysmal atrial fibrillation Is this a current diagnosis for this admission?: Yes Plan: The patient is on Eliquis for anticoagulation. Currently in a sinus rhythm and rate controlled. Continue metoprolol (5) Congestive heart failure (CHF) Is this a current diagnosis for this admission?: Yes Plan: There is no echocardiogram on file for this patient. I suspect due to his underlying diabetes that he has diastolic congestive heart failure. Currently he is euvolemic and there is no need for an echocardiogram. (6) Hyponatremia Is this a current diagnosis for this admission?: Yes Plan: This is quite mild. He will have a chemistry panel drawn in the morning. (7) Obesity (BMI 30-39.9) Is this a current diagnosis for this admission?: Yes Plan: The patient has a BMI of 36. Dietary discretion is advised. - Time Time Spent with patient: 25-34 minutes - Inpatient Certification Based on my medical assessment, after consideration of the patient's comorbidities, presenting symptoms, or acuity I expect that the services needed warrant INPATIENT care.: Yes I certify that my determination is in accordance with my understanding of Medicare's requirements for reasonable and necessary INPATIENT services [42 CFR 412.3e].: Yes Medical Necessity: Need for IV Antibiotics, Other - Inpatient hospitalization remains necessary. This gentleman has scrotal cellulitis. He needs evaluation from urology as well as ongoing parenteral antibiotics. Timing of disposition will be determined by his clinical course.
[2017-06-29] MEDS: CETIRIZINE 10 MG TABLET PO SCH (09:46)
[2017-06-29] MEDS: DOCUSATE SODIUM 100 MG CAPSULE PO SCH ×2 (09:47→17:26)
[2017-06-29] MEDS ORDERED: CLOPIDOGREL BISULFATE 75 MG TABLET PO SCH (10:00)
[2017-06-29] MEDS ORDERED: LISINOPRIL 10 MG TABLET PO ONE (10:15)
[2017-06-29] MEDS ORDERED: FUROSEMIDE 20 MG TABLET PO ONE (10:15)
--- NOTE | 2017-06-29 10:26 | EKG REPORT ---
SEVERITY:- ABNORMAL ECG - VENTRICULAR-PACED COMPLEXES NONSPECIFIC IVCD WITH LAD : Confirmed by: Jose Moreno MD 29-Jun-2017 10:25:43
[2017-06-29] MEDS ORDERED: VANCOMYCIN HCL 0 MG in DEXTROSE 5%-WATER 250 ML IV NR (15:15)
--- NOTE | 2017-06-29 15:16 | Progress Note ---
Provider Note Provider Note: I was called by the Urologist vision impaired teacher Dr. Stone informed me that he strongly suspects Khadijah's gangrene and recommends that the patient be taken to the OR as soon as possible. Unfortunately the patient had already eaten lunch. He will discuss the case with Dr. Pritchard. He will be made n.p.o. His antibiotics will be broadened. Vancomycin and meropenem have been added. I have also spoken to the manager rail on-call Dr. Leal to evaluate the patient for preop cardiology clearance given his history of congestive heart failure, pacemaker, atrial fibrillation on anticoagulation. A stat echo has been ordered.
--- NOTE | 2017-06-29 16:19 | Progress Note ---
Provider Note Provider Note: I was called by Dr. oakes at 4:15 pm. he told me that it seems to be a scrotal infection but not Khadijah's gangrene, and that he could be taken to the OR for incision and drainage in the am.
--- NOTE | 2017-06-29 16:26 | PDOC CONSULTATION ---
Consultation Consult Date: 06/29/17 Attending physician:: XU HENDERSON II Consult reason:: Rule out Khadijah's gangrene History of Present Illness Admission Date/PCP: 06/29/17 02:22 ALEXANDER OGRDON History of Present Illness: ARNEL DENG is a 81 year old male with a past medical history of diabetes, congestive heart failure, atrial fibrillation status post pacemaker placement and on Eliquis. Patient presents with 3 days of scrotal swelling and pain associated with fever. Denying change in urination or medications. In the emergency room is found to have bilateral hydrocele but negative for torsion. He started on empiric antibiotics and for the hospitalist for admission. Patient denies previous episode or recent antibiotic use. He otherwise feels well. The patient was seen today by Dr. Henderson, urologist, was concerned the patient might have Khadijah's gangrene. I saw the patient approximately 3:00 this afternoon. His walk around his room having some scrotal discomfort but appeared to be in no significant distress. Evaluation was performed and dictated below. Patient denies history of previous episodes of swelling, pain, infection, or history of trauma. Past Medical History Cardiac Medical History: Reports: Atrial Fibrillation, Congestive Heart Failure , Myocardial Infarction - "silent", Hyperlipidema, Hypertension Endocrine Medical History: Reports: Diabetes Mellitus Type 2 Renal/ Medical History: Reports: None Malignancy Medical History: Reports: None GI Medical History: Reports: None Musculoskeltal Medical History: Reports: None Skin Medical History: Reports: None Psychiatric Medical History: Denies: Alcohol Dependency, Tobacco Dependency Traumatic Medical History: Reports: None Hematology: Reports: None Infectious Medical History: Reports: None Past Surgical History Past Surgical History: Reports: Cholecystectomy, Pacemaker Social History Smoking Status: Former Smoker Frequency of Alcohol Use: None Hx Recreational Drug Use: No Drugs: None Hx Prescription Drug Abuse: No - Advance Directive Resuscitation Status: Full Code Family History Family History: Hypertension Parental Family History Reviewed: Yes Children Family History Reviewed: Yes Sibling(s) Family History Reviewed.: Yes Medication/Allergy Home Medications: Alirocumab [Praluent Pen] 150 mg PO [id number] 06/29/17 Apixaban [Eliquis 5 mg Tablet] 5 mg PO DAILY 06/29/17 Clopidogrel Bisulfate [Clopidogrel] 75 mg PO DAILY 06/29/17 Digoxin [Lanoxin 0.125 mg Tablet] 0.0625 mg PO DAILY 06/29/17 Ezetimibe [Zetia 10 mg Tablet] 10 mg PO DAILY 06/29/17 Furosemide [Lasix 40 mg Tablet] 60 mg PO QAM 06/29/17 Gabapentin [Neurontin 100 mg Capsule] 100 mg PO Q12 06/29/17 Glimepiride [Amaryl 1 mg Tablet] 1 mg PO DAILY 06/29/17 Losartan Potassium [Cozaar 50 mg Tablet] 50 mg PO DAILY 06/29/17 Metoprolol Succinate [Toprol XL 100 mg Tablet] 100 mg PO DAILY 06/29/17 Nitroglycerin [Nitro-Dur 5 mg (0.2 mg/Hr) Transdermal Patch] 1 patch TD DAILY 06/29/17 Sacubitril/Valsartan [Entresto 49 mg-51 mg Tablet] 1 tab PO Q12 06/29/17 Allergies/Adverse Reactions: acetaminophen [Acetaminophen] Allergy (Verified 11/17/11 12:46) aspirin [Aspirin] Allergy (Verified 11/17/11 12:46) Review of Systems Eyes: ABSENT: visual disturbances Ears: ABSENT: hearing changes Cardiovascular: ABSENT: chest pain, dyspnea on exertion, edema, orthropnea, palpitations Physical Exam Vital Signs: Temp Pulse Resp BP Pulse Ox 98.7 F 60 16 118/48 L 96 06/29/17 11:00 06/29/17 11:00 06/29/17 11:00 06/29/17 11:00 06/29/17 11:00 Intake & Output 06/28/17 06/29/17 06/30/17 06:59 06:59 06:59 Weight 111.13 kg 110.8 kg General appearance: PRESENT: mild distress Head exam: PRESENT: normocephalic Eye exam: PRESENT: other - Mild icterus Mouth exam: PRESENT: dry mucosa Respiratory exam: PRESENT: other - Pacer and subclavian position GI/Abdominal exam: PRESENT: other - Soft nontender no peritoneal signs no rigidity. Gentrourinary exam: PRESENT: erythema - Swelling bilaterally of the scrotum; there is generalized edema more on the right hemiscrotum is thickening towards the cord structures. Landmarks are a bit distorted; some drainage along the posterior lateral aspect of the upper scrotum., other Neurological exam: PRESENT: alert, altered, awake, oriented to person, oriented to place Psychiatric exam: PRESENT: appropriate affect Results Laboratory Results: 06/29/17 05:50 06/29/17 05:50 06/29/17 06/29/17 06/29/17 04:15 05:50 05:50 WBC 19.3 H RBC 3.83 L Hgb 12.7 L Hct 37.1 L MCV 97 MCH 33.1 MCHC 34.2 RDW 14.5 H Plt Count 101 L Seg Neutrophils % 82.6 H Lymphocytes % 8.8 L Monocytes % 8.1 Eosinophils % 0.1 Basophils % 0.4 Absolute Neutrophils 15.9 H Absolute Lymphocytes 1.7 Absolute Monocytes 1.6 H Absolute Eosinophils 0.0 Absolute Basophils 0.1 Sodium 136.4 L Potassium 4.2 Chloride 102 Carbon Dioxide 25 Anion Gap 9 BUN 25 H Creatinine 1.28 H Est GFR ( Amer) > 60 Est GFR (Non-Af Amer) 54 L Glucose 115 H Calcium 9.1 Urine Color FRANKI Urine Appearance CLEAR Urine pH 6.0 Ur Specific [place] 1.021 Urine Protein 30 H Urine Glucose (UA) NEGATIVE Urine Ketones NEGATIVE Urine Blood NEGATIVE Urine Nitrite NEGATIVE Ur Leukocyte Esterase SMALL H Urine WBC (Auto) 10 Urine RBC (Auto) 3 Impressions: Scrotum Ultrasound 06/29/17 00:29 IMPRESSION: 1. Large bilateral hydroceles. 2. Normal testes. No evidence of torsion. Abdomen/Pelvis CT 06/29/17 08:19 IMPRESSION: NO SIGNIFICANT OR ACUTE FINDING IN THE ABDOMEN OR PELVIS ON CT SCAN WITH IV CONTRAST. Assessment & Plan - Diagnosis (1) Cellulitis of scrotum Is this a current diagnosis for this admission?: Yes Plan: Highly suspicious for underlying abscess of the right facial hemiscrotum; CT scan limited due to insufficient cuts in this area. Scrotal ultrasound showed no significant edema only incidental bilateral hydroceles; patient on 10a inhibitor, and just had 25% of his lunch according to nursing staff; he does have a leukocytosis, elevated total bilirubin Recommendations: 1. I reviewed the patient with Dr. Schuster, urologist. I have also discussed the patient with anesthesiologist. My impression is that the patient has a fairly uncomplicated abscess that needs drainage, and could wait until early Saturday morning after which time he is to be n.p.o., had time for the Eliquis to work its way out of his system, and the opportunity to evaluated by Dr. Leal. I have also discussed this recommendation with primary care provider. 2. We will keep patient n.p.o. IV fluids intravenous antibiotics which had been expanded for broader coverage; if patient deteriorates in the interim, then we will perform the operation emergently 3. Suspect hyperbilirubinemia may be related to sepsis; The extrahepatic biliary tree and liver appear unremarkable on abdominal CT scan; suggest repeating total bilirubin in the morning. - Time Time Spent: 50 to 70 Minutes Smoking Cessation Education: over 10 minutes - Inpatient Certification Based on my medical assessment, after consideration of the patient's comorbidities, presenting symptoms, or acuity I expect that the services needed warrant INPATIENT care.: Yes I certify that my determination is in accordance with my understanding of Medicare's requirements for reasonable and necessary INPATIENT services [42 CFR 412.3e].: Yes Medical Necessity: Need for Pain Control, Need for IV Antibiotics, Need for Surgery
--- NOTE | 2017-06-29 16:41 | PDOC CONSULTATION ---
Consultation Consult Date: 06/29/17 Attending physician:: BRIANNA GARCÍA Consult reason:: Preop cardiovascular examination History of Present Illness Admission Date/PCP: 06/29/17 02:22 ALEXANDERDemario SEAYNEY Patient complains of: Scrotal discomfort History of Present Illness: ARNEL DENG is a 81 year old male with a past medical history of diabetes, congestive heart failure, atrial fibrillation status post pacemaker placement and on Eliquis. Patient presents with 3 days of scrotal swelling and pain associated with fever. Denying change in urination or medications. In the emergency room is found to have bilateral hydrocele but negative for torsion. He started on empiric antibiotics and for the hospitalist for admission. Patient denies previous episode or recent antibiotic use. He otherwise feels well. The patient was seen today by Dr. 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 I saw the patient approximately 3:00 this afternoon. His walk around his room having some scrotal discomfort but appeared to be in no significant distress. Evaluation was performed and dictated below. Patient denies history of previous episodes of swelling, pain, infection, or history of trauma. This history obtained by the surgical list was reviewed and confirmed. Patient for preop cardiovascular clearance. Patient claims having had bypass surgery in 2006. Since then he denied any episodes of angina. He gives history of CHF. He also claims to have had a pacemaker placed in 2006. It is being regularly checked by Dr. Smith with the inferior heart and was told to be functioning normally in December 2016. He has a coming up pacemaker interrogation in the month of June. Patient has history of atrial fibrillation. He has some chronic shortness of breath and pedal edema left more than right but claims these are chronic. Twelve-lead EKG obtained this admission shows underlying atrial fibrillation and intermittent ventricular paced beats. On telemetry monitoring so far no evidence of pacemaker dysfunction was noted. Past Medical History Cardiac Medical History: Reports: Atrial Fibrillation, Congestive Heart Failure , Myocardial Infarction - "silent", Hyperlipidema, Hypertension Endocrine Medical History: Reports: Diabetes Mellitus Type 2 Renal/ Medical History: Reports: None Malignancy Medical History: Reports: None GI Medical History: Reports: None Musculoskeltal Medical History: Reports: None Skin Medical History: Reports: None Psychiatric Medical History: Denies: Alcohol Dependency, Tobacco Dependency Traumatic Medical History: Reports: None Hematology: Reports: None Infectious Medical History: Reports: None Past Surgical History Past Surgical History: Reports: Cholecystectomy, Coronary Artery Bypass Graft, Pacemaker Social History Information Source: Patient Smoking Status: Former Smoker Frequency of Alcohol Use: None Hx Recreational Drug Use: No Drugs: None Hx Prescription Drug Abuse: No - Advance Directive Resuscitation Status: Full Code Family History Family History: Hypertension Parental Family History Reviewed: Yes Children Family History Reviewed: Yes Sibling(s) Family History Reviewed.: Yes Medication/Allergy Home Medications: Alirocumab [Praluent Pen] 150 mg PO [id number] 06/29/17 Apixaban [Eliquis 5 mg Tablet] 5 mg PO DAILY 06/29/17 Clopidogrel Bisulfate [Clopidogrel] 75 mg PO DAILY 06/29/17 Digoxin [Lanoxin 0.125 mg Tablet] 0.0625 mg PO DAILY 06/29/17 Ezetimibe [Zetia 10 mg Tablet] 10 mg PO DAILY 06/29/17 Furosemide [Lasix 40 mg Tablet] 60 mg PO QAM 06/29/17 Gabapentin [Neurontin 100 mg Capsule] 100 mg PO Q12 06/29/17 Glimepiride [Amaryl 1 mg Tablet] 1 mg PO DAILY 06/29/17 Losartan Potassium [Cozaar 50 mg Tablet] 50 mg PO DAILY 06/29/17 Metoprolol Succinate [Toprol XL 100 mg Tablet] 100 mg PO DAILY 06/29/17 Nitroglycerin [Nitro-Dur 5 mg (0.2 mg/Hr) Transdermal Patch] 1 patch TD DAILY 06/29/17 Sacubitril/Valsartan [Entresto 49 mg-51 mg Tablet] 1 tab PO Q12 06/29/17 Allergies/Adverse Reactions: acetaminophen [Acetaminophen] Allergy (Verified 11/17/11 12:46) aspirin [Aspirin] Allergy (Verified 11/17/11 12:46) Review of Systems Review of Systems: Please see history of present illness and past medical history as wall. Constitutional: No fever or chills reported. Head : No recent chronic headaches, recent head injury. Eyes: No recent eye pain, diplopia, redness, discharge, acute visual changes. Ears: No recent chronic ear pain, acute hearing loss, ear discharge. Oral cavity: No recent ulcerations, bleeding, oral cavity discomfort. Neck: No recent acute neck pain reported. Hematologic: No recent easy bruising or bleeding or hematologic malignancy reported. Lymphatic: No recent lymphatic malignancy, chronic lymphadenopathy reported yet Cardiovascular system review: See history of present illness. Respiratory system review: No recent chronic cough, hemoptysis, blood clots in the lungs reported. Shortness of breath on exertion Gastrointestinal system review: Negative for any recent acute or chronic abdominal pain, hematemesis, melena, recent change in bowel habits. Genitourinary system review: No recent acute or chronic hematuria, flank pain, UTI etc. reported. Scrotal pain and swelling reported. Skin system review: Negative for any recent abnormal bruising, no rash, no pruritus reported. Neurologic: No prior history of strokes, mini strokes, seizure disorder. Psychologic: No history of major psychosis or major depression reported. Musculoskeletal: Minor aches and pains reported. No acute joint swelling reported. Endocrine: No recent polyuria, polydipsia, recent heat or cold intolerance. Physical Exam Vital Signs: Temp Pulse Resp BP Pulse Ox 98.7 F 60 16 118/48 L 96 06/29/17 11:00 06/29/17 11:00 06/29/17 11:00 06/29/17 11:06/29/17 11:00 Intake & Output 06/28/17 06/29/17 06/30/17 06:59 06:59 06:59 Weight 111.13 kg 110.8 kg Exam: GENERAL: well-nourished and in no acute distress. Alert and oriented x3 HEAD: Atraumatic, normocephalic. EYES: Pupils equal round and reactive to light, extraocular movements intact, sclera anicteric, conjunctiva are normal. ENT: TMs normal, nares patent, oropharynx clear without exudates. Moist mucous membranes. No oral ulcerations or bleeding gums noted NECK: supple without lymphadenopathy. Trachea is central. No cervical or axillary lymphadenopathy noted. Carotids are 2+, JVD WNL LUNGS: Respiration seems nonlabored, no significant accessory muscle action noted. Bibasilar fine crackles noted. No wheezes rales or rhonchi noted. No significant dullness noted on percussion. CHEST: Palpation of the chest wall shows no significant chest wall tenderness. No other significant abnormalities noted. HEART: [place] PRODUCTION TESTER, No PSH, 1/6 KIRBY aortic area, 1/6 mena systolic murmur mitral area, no rubs, no gallops. ABDOMEN: Soft, no significant tenderness appreciated, normoactive bowel sounds. No guarding, no rebound. No rigidity noted . No masses appreciated. EXTREMITIES: Pedal pulses are 1-2+, no calf tenderness noted. No clubbing or cyanosis. 1+ pedal edema noted. Left leg more than right NEUROLOGICAL: Focused neurological exam showed no significant neurologic deficit. Normal speech, no focal weakness appreciated. PSYCH: Normal mood, normal affect. Judgment and insight within normal limits. SKIN: No significant ecchymosis, skin is noted to be warm. MUSCULOSKELETAL EXAM: No significant acute joint swelling noted. Results Laboratory Results: 06/29/17 05:50 06/29/17 05:50 06/29/17 06/29/17 06/29/17 04:15 05:50 05:50 WBC 19.3 H RBC 3.83 L Hgb 12.7 L Hct 37.1 L MCV 97 MCH 33.1 MCHC 34.2 RDW 14.5 H Plt Count 101 L Seg Neutrophils % 82.6 H Lymphocytes % 8.8 L Monocytes % 8.1 Eosinophils % 0.1 Basophils % 0.4 Absolute Neutrophils 15.9 H Absolute Lymphocytes 1.7 Absolute Monocytes 1.6 H Absolute Eosinophils 0.0 Absolute Basophils 0.1 Sodium 136.4 L Potassium 4.2 Chloride 102 Carbon Dioxide 25 Anion Gap 9 BUN 25 H Creatinine 1.28 H Est GFR ( Amer) > 60 Est GFR (Non-Af Amer) 54 L Glucose 115 H Calcium 9.1 Urine Color FRANKI Urine Appearance CLEAR Urine pH 6.0 Ur Specific [place] 1.021 Urine Protein 30 H Urine Glucose (UA) NEGATIVE Urine Ketones NEGATIVE Urine Blood NEGATIVE Urine Nitrite NEGATIVE Ur Leukocyte Esterase SMALL H Urine WBC (Auto) 10 Urine RBC (Auto) 3 EKG Comments: Shows intermittent ventricular paced beats with underlying atrial fibrillation. Impressions: Scrotum Ultrasound 06/29/17 00:29 IMPRESSION: 1. Large bilateral hydroceles. 2. Normal testes. No evidence of torsion. Abdomen/Pelvis CT 06/29/17 08:19 IMPRESSION: NO SIGNIFICANT OR ACUTE FINDING IN THE ABDOMEN OR PELVIS ON CT SCAN WITH IV CONTRAST. Assessment & Plan - Diagnosis (1) Preoperative cardiovascular examination Is this a current diagnosis for this admission?: Yes (2) Cardiac pacemaker in situ Is this a current diagnosis for this admission?: Yes (3) Atrial fibrillation Qualifiers: Atrial fibrillation type: paroxysmal Qualified Code(s): I48.0 - Paroxysmal atrial fibrillation Is this a current diagnosis for this admission?: Yes (4) Cellulitis of scrotum Is this a current diagnosis for this admission?: Yes (5) Congestive heart failure (CHF) Qualifiers: Heart failure chronicity: unspecified Is this a current diagnosis for this admission?: Yes (6) Diabetes Qualifiers: Diabetes mellitus type: type 2 Diabetes mellitus terminal carman insulin use: unspecified terminal carman insulin use status Diabetes mellitus complication status : with unspecified complications Qualified Code(s): E11.8 - Type 2 diabetes mellitus with unspecified complications Is this a current diagnosis for this admission?: Yes (7) Obesity (BMI 30-39.9) Is this a current diagnosis for this admission?: Yes - Notes Notes: Preop cardiovascular examination: Patient for urgent surgery for scrotal gangrene. Currently patient seems stable from cardiac standpoint without any ongoing chest pain, no clinical CHF except for some mild pedal edema which is chronic. Patient does have chronic atrial fibrillation. Overall cardiovascular event risk is higher than average but not in the prohibitive range. Patient therefore cleared for surgery. Recommend DVT prophylaxis, reinstitution of chronic anticoagulation as soon as feasible from surgical standpoint. Cardiac pacemaker: Telemetry strips review shows normal functioning so far. Atrial fibrillation: Chronic, anticoagulation on hold. Resume chronic anticoagulation as soon as feasible. Congestive heart failure: Seems compensated by my exam. Patient does have some chronic pedal edema and chronic shortness of breath. On the abdominal CT, lung bases were available for review and did not show any evidence of congestion. Diabetes: Recommend good control. Avoid any hyper or hypoglycemia. Obesity: Currently stable. Patient will benefit from weight loss on a long- term basis. 2D echo was ordered but should not hold up surgery. - Time Time Spent: 30 to 50 Minutes - CODE STATUS was discussed, patient remains full code. Multiple medical problems were addressed. More than 50% of the time spent coordinating care, discussing management plans with involved caregivers. Management plans discussed with involved personnels. Medical decision making was of moderate to high complexity, patient's has multiple comorbidities. Medications reviewed and adjusted accordingly: Yes
[2017-06-29 16:53] LABS: INTERNATIONAL RATION (INR) 1.38; PARTIAL THROMBOPLASTIN TIME 53.5 SEC (23.5-35.8); PROTHROMBIN TIME 17.8 SEC (11.4-15.4)
--- NOTE | 2017-06-29 17:09 | RADIOLOGY REPORT (SQ) ---
EXAM DESCRIPTION: CHEST SINGLE VIEW COMPLETED DATE/TIME: 06/29/2017 4:58 pm REASON FOR STUDY: Preop COMPARISON: None. EXAM PARAMETERS: NUMBER OF VIEWS: One view. TECHNIQUE: Single frontal radiographic view of the chest acquired. RADIATION DOSE: NA LIMITATIONS: None. FINDINGS: LUNGS AND PLEURA: No acute infiltrates or effusions. Left pleural thickening. MEDIASTINUM AND HILAR STRUCTURES: No masses. Contour normal. HEART AND VASCULAR STRUCTURES: The heart is normal with normal pulmonary vasculature. Chronic left p leural thickening. Changes of CABG. BONES: No acute findings. HARDWARE: Pacemaker leads are in place. OTHER: No other significant finding. IMPRESSION: NO ACUTE DISEASE. TECHNICAL DOCUMENTATION: JOB ID: [id number] [email or web address]- All Rights Reserved Reading location - IP/workstation name: [email or web address]
[2017-06-29 17:13] LABS: PFA ADP 118 (56-106)
[2017-06-29 17:15] LABS: PFA EPI 92 (55-179)
[2017-06-29] MEDS: MEROPENEM 1 GM in NORMAL SALINE 100 ML IV SCH (17:25)
--- NOTE | 2017-06-29 19:43 | XCELERA REPORT ---
[address] [address] Transthoracic Echocardiogram Report Name: ARNEL DENG Age: 81 yrs Gender: Male : 1935 Patient Status: Inpatient Patient Location: [address] [place] [address] Study Date: 06/29/2017 05:04 PM Height: 69 in Weight: 245 lb BSA: 2.3 m2 Procedure: A complete two-dimensional transthoracic echocardiogram was performed (2D, M-mode, spectral and color flow Doppler). The study was technically difficult with many images being suboptimal in quality. Reason For Study: For emergent surgery Ordering Physician: BRIANNA GARCÍA Performed By: Evelyn Duvall Interpretation Summary The Ejection Fraction estimate is 45-50% Left ventricular systolic function is mildly reduced. Doppler measurements suggest pseudonormalized left ventricular relaxation, which is associated with grade II/IV or mild to moderate diastolic dysfunction There is borderline concentric left ventricular hypertrophy. The left ventricle is borderline dilated. There is mild global hypokinesis of the left ventricle. Regional wall motion abnormalities cannot be excluded due to limited visualization. The right ventricle is mildly dilated. The right ventricular systolic function is normal. The right atrium is mildly dilated. The left atrium is mildly dilated. There is no mitral valve stenosis. There is a mild amount of mitral regurgitation There is no aortic valve stenosis There is a mild amount of aortic regurgitation There is a trace or physiologic amount of tricuspid regurgitation Tricuspid regurgitation jet envelope not well defined to measure RV systolic pressure accurately. The aortic root is not well visualized. The inferior vena cava was not well visualized There is no pericardial effusion. MMode/2D Measurements & Calculations RVDd: 3.9 cm LVIDd: 5.8 cm FS: 22.5 % Ao root diam: 3.3 cm IVSd: 1.0 cm LVIDs: 4.5 cm EDV(Teich): 164.4 ml LVPWd: 1.0 cm ESV(Teich): 91.0 ml Ao root area: 8.3 cm2 EF(Teich): 44.7 % LA dimension: 4.2 cm Doppler Measurements & Calculations MV E max jeff: MV P1/2t max jeff: Ao V2 max: AI max jeff: 95.8 cm/sec 95.3 cm/sec 181.9 cm/sec 291.8 cm/sec MV P1/2t: 66.7 msec Ao max PG: AI max P.2 mmHg 34.1 mmHg MVA(P1/2t): 3.3 cm2 AI dec slope: MV dec slope: 418.3 cm/sec2 114.5 cm/sec2 AI P1/2t: 746.3 msec LV V1 max PG: PA V2 max: TR max jeff: 3.8 mmHg 91.8 cm/sec 198.2 cm/sec LV V1 max: PA max P.4 mmHg TR max P.2 cm/sec 15.7 mmHg Left Ventricle The left ventricle is borderline dilated. There is borderline concentric left ventricular hypertrophy. Left ventricular systolic function is mildly reduced. The Ejection Fraction estimate is 45-50%. Doppler measurements suggest pseudonormalized left ventricular relaxation, which is associated with grade II/IV or mild to moderate diastolic dysfunction. There is mild global hypokinesis of the left ventricle. Regional wall motion abnormalities cannot be excluded due to limited visualization. Right Ventricle The right ventricle is mildly dilated. There is normal right ventricular wall thickness. The right ventricular systolic function is normal. Atria The right atrium is mildly dilated. The left atrium is mildly dilated. Interarterial septum not well visualized and not well dopplered. Cannot comment on ASD/PFO presence. Mitral Valve The mitral valve leaflets are sclerotic, but show no functional abnormalities. There is no mitral valve stenosis. There is a mild amount of mitral regurgitation. Aortic Valve The aortic valve is not well visualized secondary to technical limitations. There is no aortic valve stenosis. There is a mild amount of aortic regurgitation. Tricuspid Valve The tricuspid valve is not well visualized secondary to technical limitations. There is no tricuspid stenosis. There is a trace or physiologic amount of tricuspid regurgitation. Tricuspid regurgitation jet envelope not well defined to measure RV systolic pressure accurately. Pulmonic Valve The pulmonic valve is not well visualized. Great Vessels The aortic root is not well visualized. The inferior vena cava was not well visualized. Effusions There is no pericardial effusion. : BRIANNA GARCÍA > Eri Leal
[2017-06-29] MEDS: VANCOMYCIN HCL 750 MG in DEXTROSE 5%-WATER 250 ML IV SCH (21:59)
[2017-06-30] MEDS: MEROPENEM 1 GM in NORMAL SALINE 100 ML IV SCH ×3 (02:20→17:36)
[2017-06-30 05:31] LABS: ALANINE AMINOTRANSFERASE 28 U/L (21-72); ALBUMIN 3.3 g/dL (3.5-5.0); ALKALINE PHOSPHATASE 53 U/L (38-126); ANION GAP 10 (5-19); ASPARTATE AMINO TRANSFERASE 24 U/L (17-59); BILIRUBIN,DIRECT 0.4 mg/dL (0.0-0.4); BILIRUBIN,TOTAL 3.4 mg/dL (0.2-1.3); BLOOD UREA NITROGEN 25 mg/dL (7-20); CALCIUM 9.1 mg/dL (8.4-10.2); CARBON DIOXIDE 25 mmol/L (22-30); CHLORIDE 103 mmol/L (98-107); GLUCOSE 124 mg/dL (75-110); POTASSIUM 4.2 mmol/L (3.6-5.0); SODIUM 138.4 mmol/L (137-145); TOTAL PROTEIN 5.7 g/dL (6.3-8.2)
[2017-06-30 05:44] LABS: ABSOLUTE BASOPHILS # (AUTO) 0.1 10^3/uL (0.0-0.2); ABSOLUTE EOSINOPHILS # (AUTO) 0.1 10^3/uL (0.0-0.6); ABSOLUTE LYMPHOCYTES (AUTO) 1.7 10^3/uL (0.5-4.7); ABSOLUTE MONOCYTES (AUTO) 1.6 10^3/uL (0.1-1.4); ABSOLUTE NEUT (AUTO) 14.3 10^3/uL (1.7-8.2); BASOPHILS % (AUTO) 0.3 % (0-2); EOSINOPHILS % (AUTO) 0.3 % (0-6); HEMATOCRIT 36.3 % (37.9-51.0); HEMOGLOBIN 12.4 g/dL (13.5-17.0); LYMPHOCYTES % (AUTO) 9.4 % (13-45); MEAN CORPUSCULAR HEMOGLOBIN 33.1 pg (27.0-33.4); MEAN CORPUSCULAR HGB CONC 34.1 g/dL (32.0-36.0); MEAN CORPUSCULAR VOLUME 97 fl (80-97); MONOCYTES % (AUTO) 9.1 % (3-13); RED BLOOD COUNT 3.73 10^6/uL (4.35-5.55); RED CELL DISTRIBUTION WIDTH 14.3 % (11.5-14.0); SEGMENTED NEUTROPHILS % (AUTO) 80.9 % (42-78); TOTAL CELLS COUNTED % (AUTO) 100 %; WHITE BLOOD COUNT 17.6 10^3/uL (4.0-10.5)
[2017-06-30 06:31] LABS: PLATELET COUNT 83 10^3/uL (150-450)
[2017-06-30] MEDS ORDERED: BUPIVACAINE HCL 0.25 % INJ/PF (2.5 MG/1 ML) 30 ML VIAL ONE (07:15)
[2017-06-30] MEDS ORDERED: LIDOCAINE 0.5% INJ-PF (5 MG/ML) 50 ML SDV ONE (07:15)
[2017-06-30] MEDS ORDERED: FENTANYL CITRATE INJ/PF 100 MCG/2 ML AMPUL ONE ×2 (07:49→07:50)
[2017-06-30] MEDS ORDERED: ONDANSETRON HCL INJ/PF 4 MG/2 ML SDV ONE (07:50)
[2017-06-30] MEDS ORDERED: MIDAZOLAM 2 MG/2 ML INJ ONE (07:50)
[2017-06-30] MEDS ORDERED: EPHEDRINE SULFATE INJ 50 MG/1 ML AMPULE ONE (07:50)
[2017-06-30] MEDS ORDERED: PROPOFOL INJ 200 MG/20 ML VIAL IV ONE (07:50)
[2017-06-30] MEDS: LEVOFLOXACIN 750 MG/D5W RTU 750 MG/150 ML RTUPB IV SCH (08:10)
[2017-06-30] MEDS: FUROSEMIDE 20 MG TABLET PO SCH (08:11)
[2017-06-30] MEDS ORDERED: ONDANSETRON HCL INJ/PF 4 MG/2 ML SDV IV PRN (08:20)
[2017-06-30] MEDS ORDERED: FENTANYL CITRATE INJ/PF 100 MCG/2 ML AMPUL IV PRN ×3 (08:20)
[2017-06-30] MEDS ORDERED: DIPHENHYDRAMINE HCL 50 MG/ML VIAL IV PRN (08:20)
--- NOTE | 2017-06-30 09:13 | Operative Report ---
Operative Report DATE OF SURGERY: 06/30/17 PREOPERATIVE DIAGNOSIS: Scrotal abscess POSTOPERATIVE DIAGNOSIS: Same OPERATION: Incision and drainage of scrotal abscess, intraoperative ultrasound of the scrotum. SURGEON: XU HENDERSON II 1ST VALUER: TAJ NEWMAN ANESTHESIA: LMAC TISSUE REMOVED OR ALTERED: Intraoperative wound culture ESTIMATED BLOOD LOSS: 50 cc INTRAOPERATIVE FINDINGS: Superficial abscess of the right hemiscrotum tracking from the mid scrotum inferiorly and superiorly to the upper scrotum. No apparent involvement of the right hydrocele, the right testicle or epididymis. No tracking superiorly or to the perineum PROCEDURE: The patient was taken to the operating room placed on the operating room table in the supine position. After adequate sedation, he was placed into the lithotomy position and prepped and draped in the usual sterile fashion. An incision was made in the mid scrotum on the right where some superficial purulence was encountered. Utilizing blunt dissection, this pocket was dissected to the upper scrotum and inferiorly to the dependent portion of the scrotum. A wound culture was obtained. Intraoperative ultrasonography was used to evaluate surrounding structures and to look for additional pockets of infection. None was found. There appeared to be a normal testicle with a normal epididymis on the right. No other pockets of purulence or cystic structures were noted. The wound was then irrigated with a large amount of saline. There was some bleeding noted from the skin edges with this was unable to be completely stopped due to the patient's anticoagulation. The wound was packed with iodoform and 4 x 4's. External dressings were held in place by a mesh dressing. The patient was returned to PACU in satisfactory condition. He tolerated the procedure well.
--- NOTE | 2017-06-30 09:15 | PDOC CONSULTATION ---
Consultation Consult Date: 06/29/17 Consult reason:: Hydrocele bilaterally, cellulitis History of Present Illness Admission Date/PCP: 06/29/17 02:22 ALEXANDER GORDON Past Medical History Cardiac Medical History: Reports: Atrial Fibrillation, Congestive Heart Failure , Myocardial Infarction - "silent", Hyperlipidema, Hypertension Endocrine Medical History: Reports: Diabetes Mellitus Type 2 Renal/ Medical History: Reports: None Malignancy Medical History: Reports: None GI Medical History: Reports: None Musculoskeltal Medical History: Reports: None Skin Medical History: Reports: None Psychiatric Medical History: Denies: Alcohol Dependency, Tobacco Dependency Traumatic Medical History: Reports: None Hematology: Reports: None Infectious Medical History: Reports: None Past Surgical History Past Surgical History: Reports: Cholecystectomy, Coronary Artery Bypass Graft, Pacemaker Social History Smoking Status: Former Smoker Frequency of Alcohol Use: None Hx Recreational Drug Use: No Drugs: None Hx Prescription Drug Abuse: No - Advance Directive Resuscitation Status: Full Code Family History Family History: Hypertension Parental Family History Reviewed: No Children Family History Reviewed: No Sibling(s) Family History Reviewed.: No Medication/Allergy Home Medications: Alirocumab [Praluent Pen] 150 mg PO [id number] 06/29/17 Apixaban [Eliquis 5 mg Tablet] 5 mg PO DAILY 06/29/17 Clopidogrel Bisulfate [Clopidogrel] 75 mg PO DAILY 06/29/17 Digoxin [Lanoxin 0.125 mg Tablet] 0.0625 mg PO DAILY 06/29/17 Ezetimibe [Zetia 10 mg Tablet] 10 mg PO DAILY 06/29/17 Furosemide [Lasix 40 mg Tablet] 60 mg PO QAM 06/29/17 Gabapentin [Neurontin 100 mg Capsule] 100 mg PO Q12 06/29/17 Glimepiride [Amaryl 1 mg Tablet] 1 mg PO DAILY 06/29/17 Losartan Potassium [Cozaar 50 mg Tablet] 50 mg PO DAILY 06/29/17 Metoprolol Succinate [Toprol XL 100 mg Tablet] 100 mg PO DAILY 06/29/17 Nitroglycerin [Nitro-Dur 5 mg (0.2 mg/Hr) Transdermal Patch] 1 patch TD DAILY 06/29/17 Sacubitril/Valsartan [Entresto 49 mg-51 mg Tablet] 1 tab PO Q12 06/29/17 Allergies/Adverse Reactions: acetaminophen [Acetaminophen] Allergy (Verified 11/17/11 12:46) aspirin [Aspirin] Allergy (Verified 11/17/11 12:46) Physical Exam Vital Signs: Temp Pulse Resp BP Pulse Ox 98.7 F 75 16 114/51 L 99 06/30/17 04:36 06/30/17 04:36 06/30/17 04:36 06/30/17 04:36 06/30/17 04:36 Intake & Output 06/29/17 06/30/17 07/01/17 06:59 06:59 06:59 Intake Total 1420 Output Total 200 Balance 1220 Weight 111.13 kg 111.6 kg Results Laboratory Results: 06/30/17 04:57 06/30/17 04:57 06/30/17 06/30/17 04:57 04:57 WBC 17.6 H RBC 3.73 L Hgb 12.4 L Hct 36.3 L MCV 97 MCH 33.1 MCHC 34.1 RDW 14.3 H Plt Count 83 L Seg Neutrophils % 80.9 H Lymphocytes % 9.4 L Monocytes % 9.1 Eosinophils % 0.3 Basophils % 0.3 Absolute Neutrophils 14.3 H Absolute Lymphocytes 1.7 Absolute Monocytes 1.6 H Absolute Eosinophils 0.1 Absolute Basophils 0.1 Sodium 138.4 Potassium 4.2 Chloride 103 Carbon Dioxide 25 Anion Gap 10 BUN 25 H Creatinine 1.42 H Est GFR ( Amer) 58 L Est GFR (Non-Af Amer) 48 L Glucose 124 H Calcium 9.1 Magnesium 2.3 Total Bilirubin 3.4 H AST 24 ALT 28 Alkaline Phosphatase 53 Total Protein 5.7 L Albumin 3.3 L Impressions: Scrotum Ultrasound 06/29/17 00:29 IMPRESSION: 1. Large bilateral hydroceles. 2. Normal testes. No evidence of torsion. Abdomen/Pelvis CT 06/29/17 08:19 IMPRESSION: NO SIGNIFICANT OR ACUTE FINDING IN THE ABDOMEN OR PELVIS ON CT SCAN WITH IV CONTRAST. Chest X-Ray 06/29/17 16:28 IMPRESSION: NO ACUTE DISEASE. Assessment & Plan - Diagnosis (1) Cellulitis of scrotum Is this a current diagnosis for this admission?: Yes Plan: Please refer to written consult found in the patient's physical chart. The dictation equipment would not work on the patient's nursing station or for so the consult was handwritten. Thank you
--- NOTE | 2017-06-30 09:18 | PDOC PROGRESS REPORT ---
Subjective Progress Note for:: 06/29/17 Subjective:: Follow-up visit at 2030 reveals no definite change in the cellulitis. There is no increase in swelling or in the affected area. He still has erythema just above the penis to the right and left inguinal areas and marked penile swelling. His postvoid residual however is 0 cc and no Tobar is planned at this time. Plan: Incision and drainage in the morning. Reason For Visit: SCROTAL CELLULITIS Physical Exam Vital Signs: Temp Pulse Resp BP Pulse Ox 98.7 F 75 16 114/51 L 99 06/30/17 04:36 06/30/17 04:36 06/30/17 04:36 06/30/17 04:36 06/30/17 04:36 Intake & Output 06/29/17 06/30/17 07/01/17 06:59 06:59 06:59 Intake Total 1420 Output Total 200 Balance 1220 Weight 111.13 kg 111.6 kg Results Laboratory Results: 06/30/17 04:57 06/30/17 04:57 06/30/17 06/30/17 04:57 04:57 WBC 17.6 H RBC 3.73 L Hgb 12.4 L Hct 36.3 L MCV 97 MCH 33.1 MCHC 34.1 RDW 14.3 H Plt Count 83 L Seg Neutrophils % 80.9 H Lymphocytes % 9.4 L Monocytes % 9.1 Eosinophils % 0.3 Basophils % 0.3 Absolute Neutrophils 14.3 H Absolute Lymphocytes 1.7 Absolute Monocytes 1.6 H Absolute Eosinophils 0.1 Absolute Basophils 0.1 Sodium 138.4 Potassium 4.2 Chloride 103 Carbon Dioxide 25 Anion Gap 10 BUN 25 H Creatinine 1.42 H Est GFR ( Amer) 58 L Est GFR (Non-Af Amer) 48 L Glucose 124 H Calcium 9.1 Magnesium 2.3 Total Bilirubin 3.4 H AST 24 ALT 28 Alkaline Phosphatase 53 Total Protein 5.7 L Albumin 3.3 L Impressions: Scrotum Ultrasound 06/29/17 00:29 IMPRESSION: 1. Large bilateral hydroceles. 2. Normal testes. No evidence of torsion. Abdomen/Pelvis CT 06/29/17 08:19 IMPRESSION: NO SIGNIFICANT OR ACUTE FINDING IN THE ABDOMEN OR PELVIS ON CT SCAN WITH IV CONTRAST. Chest X-Ray 06/29/17 16:28 IMPRESSION: NO ACUTE DISEASE. Assessment & Plan - Diagnosis (1) Cellulitis of scrotum Is this a current diagnosis for this admission?: Yes
--- NOTE | 2017-06-30 10:38 | Operative Report ---
Nonrecallable Operative Report DATE OF SURGERY: 06/30/17 PREOPERATIVE DIAGNOSIS: Right hemiscrotal cellulitis with abscess POSTOPERATIVE DIAGNOSIS: Same OPERATION: For operative focused ultrasound of the right scrotum. Assist with debridement of of right hemiscrotum SURGEON: TAJ NEWMAN 1ST BIOFUELS MANAGER: XU HENDERSON II ANESTHESIA: LMAC TISSUE REMOVED OR ALTERED: Pus COMPLICATIONS: None ESTIMATED BLOOD LOSS: 25 cc INTRAOPERATIVE FINDINGS: See below PROCEDURE: The patient was taken to the preop holding her to the main operating room where LMAC anesthesia was induced. The patient was placed in supine, anatomy position , scrotal and genitalia prepped and draped sterile fashion Surgical plan surgical timeout conducted. The principal portion of this operation was dictated by Dr. Henderson, urologist. After the principal incision was made draining the pus from the right jenifer- scrotum, we performed intraoperative ultrasonography with the variable frequency linear transducer. Objective was to ascertain whether there was any undrained pus in the hemiscrotum on the right, with a contralateral hemiscrotum on the left. Findings were significant for edema only; bilateral hydroceles, large, were again appreciated. The purulent infection appeared to be satisfactorily evacuated without any cavities of undrained pus. We did not enter the hydroceles or the tunica. The remainder the operation was dictated by Dr. Henderson.
[2017-06-30] MEDS: VANCOMYCIN HCL 750 MG in DEXTROSE 5%-WATER 250 ML IV SCH ×2 (11:15→22:51)
[2017-06-30] MEDS: CETIRIZINE 10 MG TABLET PO SCH (11:16)
[2017-06-30] MEDS: DOCUSATE SODIUM 100 MG CAPSULE PO SCH ×2 (11:16→17:36)
[2017-06-30] MEDS: LISINOPRIL 10 MG TABLET PO SCH (11:16)
[2017-06-30] MEDS: METOPROLOL SUCCINATE 50 MG TAB.SR.24H PO SCH (11:17)
[2017-06-30] MEDS ORDERED: HYDROCODONE/ACETAMINOPHEN 5-325 MG TABLET PO PRN (14:50)
[2017-06-30] MEDS ORDERED: MORPHINE SULFATE 10 MG/ML INJ IV PRN (14:51)
[2017-06-30] MEDS: OXYCODONE HCL IR 5 MG TABLET PO PRN (15:48)
--- NOTE | 2017-06-30 17:52 | PDOC PROGRESS REPORT ---
Subjective Progress Note for:: 06/30/17 Subjective:: The patient is an 81-year-old male with a past medical history significant for diabetes, congestive heart failure and atrial fibrillation. He is on chronic anticoagulation therapy with Eliquis. He has a pacemaker in place. Patient presented to the emergency room with scrotal swelling and pain associated with fever. He was admitted to the hospital for further evaluation and treatment. Urology was consulted and due to concerns for Khadijah's surgery consult was placed late yesterday afternoon. Today the patient went to the operating room with both Dr. Stone and Dr. Pritchard. The patient was found to have a superficial scrotal abscess which was drained. Today when I saw the patient it was post surgery. He still is a little groggy but is alert and oriented and answers questions appropriately. At the time of my visit he is not having any significant pain. He denies fever chills. No chest pain, shortness of breath or cough. No nausea vomiting or diarrhea. No abdominal pain. No urinary complaints Reason For Visit: SCROTAL CELLULITIS Physical Exam Vital Signs: Temp Pulse Resp BP Pulse Ox 98.3 F 64 18 127/66 H 100 06/30/17 15:45 06/30/17 15:45 06/30/17 15:45 06/30/17 15:45 06/30/17 15:45 Intake & Output 06/29/17 06/30/17 07/01/17 06:59 06:59 06:59 Intake Total 1420 2000 Output Total 200 2000 Balance 1220 0 Weight 111.13 kg 111.6 kg General appearance: PRESENT: no acute distress, well-developed, well-nourished, other - He is somewhat groggy from his recent surgery. Head exam: PRESENT: atraumatic, normocephalic Mouth exam: PRESENT: moist, tongue midline Respiratory exam: PRESENT: clear to auscultation barbie. ABSENT: rales, rhonchi, wheezes Cardiovascular exam: PRESENT: RRR. ABSENT: diastolic murmur, rubs, systolic murmur GI/Abdominal exam: PRESENT: normal bowel sounds, soft. ABSENT: distended, guarding, mass, organolmegaly, rebound, tenderness Gentrourinary exam: PRESENT: other - There was a large bandage in place the right scrotum. This was not removed as of the time of my dictation. Erythema seems to have improved since yesterday. Extremities exam: PRESENT: full ROM, pedal edema. ABSENT: calf tenderness, clubbing Neurological exam: PRESENT: alert, awake, oriented to person, oriented to place , oriented to time, oriented to situation, CN II-XII grossly intact. ABSENT: motor sensory deficit Psychiatric exam: PRESENT: appropriate affect, normal mood. ABSENT: homicidal ideation, suicidal ideation Skin exam: PRESENT: dry, intact, warm. ABSENT: cyanosis, rash Results Laboratory Results: 06/30/17 04:57 06/30/17 04:57 06/30/17 06/30/17 04:57 04:57 WBC 17.6 H RBC 3.73 L Hgb 12.4 L Hct 36.3 L MCV 97 MCH 33.1 MCHC 34.1 RDW 14.3 H Plt Count 83 L Seg Neutrophils % 80.9 H Lymphocytes % 9.4 L Monocytes % 9.1 Eosinophils % 0.3 Basophils % 0.3 Absolute Neutrophils 14.3 H Absolute Lymphocytes 1.7 Absolute Monocytes 1.6 H Absolute Eosinophils 0.1 Absolute Basophils 0.1 Sodium 138.4 Potassium 4.2 Chloride 103 Carbon Dioxide 25 Anion Gap 10 BUN 25 H Creatinine 1.42 H Est GFR ( Amer) 58 L Est GFR (Non-Af Amer) 48 L Glucose 124 H Calcium 9.1 Magnesium 2.3 Total Bilirubin 3.4 H AST 24 ALT 28 Alkaline Phosphatase 53 Total Protein 5.7 L Albumin 3.3 L Impressions: Scrotum Ultrasound 06/29/17 00:29 IMPRESSION: 1. Large bilateral hydroceles. 2. Normal testes. No evidence of torsion. Abdomen/Pelvis CT 06/29/17 08:19 IMPRESSION: NO SIGNIFICANT OR ACUTE FINDING IN THE ABDOMEN OR PELVIS ON CT SCAN WITH IV CONTRAST. Chest X-Ray 06/29/17 16:28 IMPRESSION: NO ACUTE DISEASE. Assessment & Plan - Diagnosis (1) Cellulitis of scrotum Is this a current diagnosis for this admission?: Yes Plan: With superficial abscess noted during his surgical procedure. Continue IV vancomycin and Zosyn. This is the second full day of treatment. He seems to be improving. (2) Hyperbilirubinemia Is this a current diagnosis for this admission?: Yes Plan: CT scan of the abdomen and pelvis was unremarkable. This may be due to his acute illness. His bilirubin is trending downwards. (3) Diabetes Qualifiers: Diabetes mellitus type: type 2 Diabetes mellitus fci insulin use: unspecified fci insulin use status Diabetes mellitus complication status : with unspecified complications Qualified Code(s): E11.8 - Type 2 diabetes mellitus with unspecified complications Is this a current diagnosis for this admission?: Yes Plan: Continue sliding-scale insulin for now (4) Atrial fibrillation Qualifiers: Atrial fibrillation type: paroxysmal Qualified Code(s): I48.0 - Paroxysmal atrial fibrillation Is this a current diagnosis for this admission?: Yes Plan: The patient's Eliquis has been held. We will continue to hold it for now in the event that he may have to go back to the operating room. We will need to discuss further with general surgery and urology when they want him to resume. (5) Congestive heart failure (CHF) Qualifiers: Heart failure type: combined systolic and diastolic Heart failure chronicity: chronic Qualified Code(s): I50.42 - Chronic combined systolic ( congestive) and diastolic (congestive) heart failure Is this a current diagnosis for this admission?: Yes Plan: The patient had a 2D echocardiogram performed. He has an ejection fraction of 40-45% as well as grade 2 diastolic dysfunction. Currently appears to be euvolemic. (6) Hyponatremia Is this a current diagnosis for this admission?: Yes Plan: Resolved (7) Obesity (BMI 30-39.9) Is this a current diagnosis for this admission?: Yes Plan: The patient has a BMI of 36. Dietary discretion is advised. - Time Time Spent with patient: 25-34 minutes - Inpatient Certification Medical Necessity: Need for IV Antibiotics - Inpatient hospitalization remains necessary. The patient went to the operating room today for surgical debridement of the scrotal abscess. He is requiring parenteral antibiotics. Timing of disposition will be determined by his clinical course.
[2017-07-01] MEDS: MEROPENEM 1 GM in NORMAL SALINE 100 ML IV SCH ×3 (01:37→16:57)
[2017-07-01] MEDS: OXYCODONE HCL IR 5 MG TABLET PO PRN ×2 (01:44→23:36)
[2017-07-01 05:24] LABS: ABSOLUTE EOSINOPHILS # (AUTO) 0.2 10^3/uL (0.0-0.6); ABSOLUTE LYMPHOCYTES (AUTO) 1.2 10^3/uL (0.5-4.7); ABSOLUTE MONOCYTES (AUTO) 1.2 10^3/uL (0.1-1.4); BASOPHILS % (AUTO) 0.2 % (0-2); EOSINOPHILS % (AUTO) 1.3 % (0-6); HEMATOCRIT 35.2 % (37.9-51.0); HEMOGLOBIN 11.9 g/dL (13.5-17.0); LYMPHOCYTES % (AUTO) 8.7 % (13-45); MEAN CORPUSCULAR HGB CONC 33.7 g/dL (32.0-36.0); MEAN CORPUSCULAR VOLUME 98 fl (80-97); MONOCYTES % (AUTO) 8.9 % (3-13); PLATELET COUNT 104 10^3/uL (150-450); RED CELL DISTRIBUTION WIDTH 14.6 % (11.5-14.0); SEGMENTED NEUTROPHILS % (AUTO) 80.9 % (42-78); TOTAL CELLS COUNTED % (AUTO) 100 %; WHITE BLOOD COUNT 13.6 10^3/uL (4.0-10.5)
[2017-07-01 06:00] LABS: ANION GAP 10 (5-19); BLOOD UREA NITROGEN 33 mg/dL (7-20); CALCIUM 8.9 mg/dL (8.4-10.2); CARBON DIOXIDE 25 mmol/L (22-30); CHLORIDE 103 mmol/L (98-107); GLUCOSE 129 mg/dL (75-110); POTASSIUM 4.2 mmol/L (3.6-5.0); SODIUM 137.9 mmol/L (137-145)
[2017-07-01] MEDS: METOPROLOL SUCCINATE 50 MG TAB.SR.24H PO SCH (09:04)
[2017-07-01] MEDS: CETIRIZINE 10 MG TABLET PO SCH (09:05)
[2017-07-01] MEDS: FUROSEMIDE 20 MG TABLET PO SCH (09:05)
[2017-07-01] MEDS: LISINOPRIL 10 MG TABLET PO SCH (09:05)
[2017-07-01] MEDS: DOCUSATE SODIUM 100 MG CAPSULE PO SCH ×2 (09:05→16:57)
[2017-07-01] MEDS: LEVOFLOXACIN 750 MG/D5W RTU 750 MG/150 ML RTUPB IV SCH (09:06)
[2017-07-01] MEDS: NORMAL SALINE 1000 ML 1,000 ML IV PRN (09:06)
--- NOTE | 2017-07-01 09:46 | EKG REPORT ---
SEVERITY:- ABNORMAL ECG - VENTRICULAR-PACED COMPLEXES A FIB UNDERLYING : Confirmed by: Eri Leal 01-Jul-2017 09:45:54
--- NOTE | 2017-07-01 10:27 | PDOC PROGRESS REPORT ---
Subjective Progress Note for:: 07/01/17 Subjective:: tolerable pains right scrotal area Reason For Visit: SCROTAL CELLULITIS Physical Exam Vital Signs: Temp Pulse Resp BP Pulse Ox 98.8 F 72 20 104/41 L 93 07/01/17 07:11 07/01/17 07:11 07/01/17 07:11 07/01/17 07:11 07/01/17 07:11 Intake & Output 06/30/17 07/01/17 07/02/17 06:59 06:59 06:59 Intake Total 1420 6750 Output Total 200 2650 Balance 1220 4100 Weight 111.6 kg 113 kg Exam: All packing from right scrotal area was removed. It looks clean and dry. Not repacked. Results Laboratory Results: 07/01/17 04:20 07/01/17 07/01/17 04:20 04:20 WBC 13.6 H RBC 3.60 L Hgb 11.9 L Hct 35.2 L MCV 98 H MCH 33.0 MCHC 33.7 RDW 14.6 H Plt Count 104 L Seg Neutrophils % 80.9 H Lymphocytes % 8.7 L Monocytes % 8.9 Eosinophils % 1.3 Basophils % 0.2 Absolute Neutrophils 11.0 H Absolute Lymphocytes 1.2 Absolute Monocytes 1.2 Absolute Eosinophils 0.2 Absolute Basophils 0.0 Sodium 137.9 Potassium 4.2 Chloride 103 Carbon Dioxide 25 Anion Gap 10 BUN 33 H Creatinine 1.71 H Est GFR ( Amer) 46 L Est GFR (Non-Af Amer) 38 L Glucose 129 H Calcium 8.9 Magnesium 2.3 06/29/17 04:15 Clean Catch Midstream Urine Culture - Final 3,000 col/ml Impressions: Scrotum Ultrasound 06/29/17 00:29 IMPRESSION: 1. Large bilateral hydroceles. 2. Normal testes. No evidence of torsion. Abdomen/Pelvis CT 06/29/17 08:19 IMPRESSION: NO SIGNIFICANT OR ACUTE FINDING IN THE ABDOMEN OR PELVIS ON CT SCAN WITH IV CONTRAST. Chest X-Ray 06/29/17 16:28 IMPRESSION: NO ACUTE DISEASE. Assessment & Plan - Time Time Spent with patient: 15-24 minutes - Plan Summary Plan Summary: OK to discharge anytime and follow up at the surgical clinic in 2 weeks c/o Dr Pritchard Continue antibiotics
[2017-07-01 10:39] LABS: VANCOMYCIN,TROUGH 9.8 ug/mL (5.0-20.0)
[2017-07-01] MEDS: VANCOMYCIN HCL 750 MG in DEXTROSE 5%-WATER 250 ML IV SCH (13:07)
--- NOTE | 2017-07-01 20:39 | PDOC PROGRESS REPORT ---
Subjective Progress Note for:: 06/30/17 Subjective:: Patient seen prior to going to surgery. Patient seems to be doing stable. Pt is denying any chest arm or neck discomfort. Patient denying any PND, orthopnea. Patient denied any sustained palpitations, dizziness, syncope, near syncope. Patient denying any fever chills. Patient denying any other significant discomfort. Patient is chronic atrial fibrillation with ventricular paced beats, frequent APCs and VPCs noted. Patient was cleared for surgery. Review of systems: Rest review of systems negative. Medications: Medications have been reviewed. Reason For Visit: SCROTAL CELLULITIS Physical Exam Vital Signs: Temp Pulse Resp BP Pulse Ox 98.3 F 64 18 127/66 H 100 06/30/17 15:45 06/30/17 15:45 06/30/17 15:45 06/30/17 15:45 06/30/17 15:45 Intake & Output 06/29/17 06/30/17 07/01/17 06:59 06:59 06:59 Intake Total 1420 2000 Output Total 200 2000 Balance 1220 0 Weight 111.13 kg 111.6 kg Exam: GENERAL: well-nourished and in no acute distress. Alert and oriented x3 HEAD: Atraumatic, normocephalic. EYES: Pupils equal round and reactive to light, extraocular movements intact, sclera anicteric, conjunctiva are normal. ENT: TMs normal, nares patent, oropharynx clear without exudates. Moist mucous membranes. No oral ulcerations or bleeding gums noted NECK: supple without lymphadenopathy. Trachea is central. No cervical or axillary lymphadenopathy noted. Carotids are 2+, JVD WNL LUNGS: Respiration seems nonlabored, no significant accessory muscle action noted. Breath sounds clear to auscultation bilaterally and equal noted. No wheezes rales or rhonchi noted. No significant dullness noted on percussion. CHEST: Palpation of the chest wall shows no significant chest wall tenderness. No other significant abnormalities noted. HEART: [place] FUNDRAISING MANAGER, No PSH, 1/6 KIRBY aortic area, 1/6 mena systolic murmur mitral area, no rubs, no gallops. ABDOMEN: Soft, no significant tenderness appreciated, normoactive bowel sounds. No guarding, no rebound. No rigidity noted . No masses appreciated. Scrotal cellulitis noted. EXTREMITIES: Pedal pulses are 1-2+, no calf tenderness noted. No clubbing or cyanosis.trace to 1+ pedal edema noted NEUROLOGICAL: Focused neurological exam showed no significant neurologic deficit. Normal speech, no focal weakness appreciated. PSYCH: Normal mood, normal affect. Judgment and insight within normal limits. SKIN: No significant ecchymosis, skin is noted to be warm. MUSCULOSKELETAL EXAM: No significant acute joint swelling noted. Results Laboratory Results: 06/30/17 04:57 06/30/17 04:57 06/30/17 06/30/17 04:57 04:57 WBC 17.6 H RBC 3.73 L Hgb 12.4 L Hct 36.3 L MCV 97 MCH 33.1 MCHC 34.1 RDW 14.3 H Plt Count 83 L Seg Neutrophils % 80.9 H Lymphocytes % 9.4 L Monocytes % 9.1 Eosinophils % 0.3 Basophils % 0.3 Absolute Neutrophils 14.3 H Absolute Lymphocytes 1.7 Absolute Monocytes 1.6 H Absolute Eosinophils 0.1 Absolute Basophils 0.1 Sodium 138.4 Potassium 4.2 Chloride 103 Carbon Dioxide 25 Anion Gap 10 BUN 25 H Creatinine 1.42 H Est GFR ( Amer) 58 L Est GFR (Non-Af Amer) 48 L Glucose 124 H Calcium 9.1 Magnesium 2.3 Total Bilirubin 3.4 H AST 24 ALT 28 Alkaline Phosphatase 53 Total Protein 5.7 L Albumin 3.3 L Impressions: Scrotum Ultrasound 06/29/17 00:29 IMPRESSION: 1. Large bilateral hydroceles. 2. Normal testes. No evidence of torsion. Abdomen/Pelvis CT 06/29/17 08:19 IMPRESSION: NO SIGNIFICANT OR ACUTE FINDING IN THE ABDOMEN OR PELVIS ON CT SCAN WITH IV CONTRAST. Chest X-Ray 06/29/17 16:28 IMPRESSION: NO ACUTE DISEASE. Assessment & Plan - Diagnosis (1) Preoperative cardiovascular examination Is this a current diagnosis for this admission?: Yes (2) Cardiac pacemaker in situ Is this a current diagnosis for this admission?: Yes (3) Atrial fibrillation Qualifiers: Atrial fibrillation type: paroxysmal Qualified Code(s): I48.0 - Paroxysmal atrial fibrillation Is this a current diagnosis for this admission?: Yes (4) Cellulitis of scrotum Is this a current diagnosis for this admission?: Yes (5) Congestive heart failure (CHF) Qualifiers: Heart failure type: combined systolic and diastolic Heart failure chronicity: chronic Qualified Code(s): I50.42 - Chronic combined systolic ( congestive) and diastolic (congestive) heart failure Is this a current diagnosis for this admission?: Yes (6) Diabetes Qualifiers: Diabetes mellitus type: type 2 Diabetes mellitus terminal clerk insulin use: unspecified terminal clerk insulin use status Diabetes mellitus complication status : with unspecified complications Qualified Code(s): E11.8 - Type 2 diabetes mellitus with unspecified complications Is this a current diagnosis for this admission?: Yes (7) Obesity (BMI 30-39.9) Is this a current diagnosis for this admission?: Yes (8) CAD (coronary artery disease) Qualifiers: Coronary Disease-Associated Artery/Lesion type: unspecified vessel or lesion type [place] vs. transplanted heart: [place] heart Associated angina: angina presence unspecified Qualified Code(s): I25.10 - Atherosclerotic heart disease of [place] coronary artery without angina pectoris Is this a current diagnosis for this admission?: Yes - Notes Notes: Patient seen on morning rounds and felt to be stable enough to go for surgery. Therefore cleared for surgery. We will check a EKG tomorrow morning. Preop cardiovascular examination: Patient for urgent surgery for scrotal gangrene. Currently patient seems stable from cardiac standpoint without any ongoing chest pain, no clinical CHF except for some mild pedal edema which is chronic. Patient does have chronic atrial fibrillation. Overall cardiovascular event risk is higher than average but not in the prohibitive range. Patient therefore cleared for surgery. Recommend DVT prophylaxis, reinstitution of chronic anticoagulation as soon as feasible from surgical standpoint. Cardiac pacemaker: Telemetry strips review shows normal functioning so far. Atrial fibrillation: Chronic, anticoagulation on hold. Resume chronic anticoagulation as soon as feasible. Congestive heart failure: Seems compensated by my exam. Patient does have some chronic pedal edema and chronic shortness of breath. On the abdominal CT, lung bases were available for review and did not show any evidence of congestion. Diabetes: Recommend good control. Avoid any hyper or hypoglycemia. Obesity: Currently stable. Patient will benefit from weight loss on a long- term basis. 2D echo was reviewed. Showed mildly depressed LVEF. No significant stenotic valve disease noted. - Time Time with patient: 15-25 minutes - CODE STATUS was discussed, patient remains full code. Multiple medical problems were addressed. More than 50% of the time spent coordinating care, discussing management plans with involved caregivers. Management plans discussed with involved personnels. Medical decision making was of moderate to high complexity, patient's has multiple comorbidities.
--- NOTE | 2017-07-01 20:42 | PDOC PROGRESS REPORT ---
Subjective Progress Note for:: 07/01/17 Subjective:: Postop day 1. Doing reasonably well. Patient seems to be doing stable. Pt is denying any chest arm or neck discomfort. Patient denying any PND, orthopnea. Patient denied any sustained palpitations, dizziness, syncope, near syncope. Patient denying any fever chills. Patient denying any other significant discomfort. Patient is chronic atrial fibrillation with ventricular paced beats, frequent APCs and VPCs noted. Patient was cleared for surgery. Review of systems: Rest review of systems negative. Medications: Medications have been reviewed. Reason For Visit: SCROTAL CELLULITIS Physical Exam Vital Signs: Temp Pulse Resp BP Pulse Ox 98.6 F 66 16 101/47 L 96 07/01/17 15:00 07/01/17 15:00 07/01/17 15:00 07/01/17 15:00 07/01/17 15:00 Intake & Output 06/30/17 07/01/17 07/02/17 06:59 06:59 06:59 Intake Total 1420 6750 1235 Output Total 200 2650 550 Balance 1220 4100 685 Weight 111.6 kg 113 kg Exam: GENERAL: well-nourished and in no acute distress. Alert and oriented x3 HEAD: Atraumatic, normocephalic. EYES: Pupils equal round and reactive to light, extraocular movements intact, sclera anicteric, conjunctiva are normal. ENT: TMs normal, nares patent, oropharynx clear without exudates. Moist mucous membranes. No oral ulcerations or bleeding gums noted NECK: supple without lymphadenopathy. Trachea is central. No cervical or axillary lymphadenopathy noted. Carotids are 2+, JVD WNL LUNGS: Respiration seems nonlabored, no significant accessory muscle action noted. Breath sounds clear to auscultation bilaterally and equal noted. No wheezes rales or rhonchi noted. No significant dullness noted on percussion. CHEST: Palpation of the chest wall shows no significant chest wall tenderness. No other significant abnormalities noted. HEART: Conception [employer], No PSH, 1/6 KIRBY aortic area, 1/6 mena systolic murmur mitral area, no rubs, no gallops. ABDOMEN: Soft, no significant tenderness appreciated, normoactive bowel sounds. No guarding, no rebound. No rigidity noted . No masses appreciated. Postsurgical changes noted in the scrotal area. EXTREMITIES: Pedal pulses are 1-2+, no calf tenderness noted. No clubbing or cyanosis. 1+ pedal edema noted NEUROLOGICAL: Focused neurological exam showed no significant neurologic deficit. Normal speech, no focal weakness appreciated. PSYCH: Normal mood, normal affect. Judgment and insight within normal limits. SKIN: No significant ecchymosis, skin is noted to be warm. MUSCULOSKELETAL EXAM: No significant acute joint swelling noted. Results Laboratory Results: 07/01/17 04:20 07/01/17 09:47 07/01/17 07/01/17 07/01/17 04:20 04:20 09:47 WBC 13.6 H RBC 3.60 L Hgb 11.9 L Hct 35.2 L MCV 98 H MCH 33.0 MCHC 33.7 RDW 14.6 H Plt Count 104 L Seg Neutrophils % 80.9 H Lymphocytes % 8.7 L Monocytes % 8.9 Eosinophils % 1.3 Basophils % 0.2 Absolute Neutrophils 11.0 H Absolute Lymphocytes 1.2 Absolute Monocytes 1.2 Absolute Eosinophils 0.2 Absolute Basophils 0.0 Sodium 137.9 Potassium 4.2 Chloride 103 Carbon Dioxide 25 Anion Gap 10 BUN 33 H Creatinine 1.71 H 1.69 H Est GFR ( Amer) 46 L 47 L Est GFR (Non-Af Amer) 38 L 39 L Glucose 129 H Calcium 8.9 Magnesium 2.3 06/29/17 04:15 Clean Catch Midstream Urine Culture - Final 3,000 col/ml Impressions: Scrotum Ultrasound 06/29/17 00:29 IMPRESSION: 1. Large bilateral hydroceles. 2. Normal testes. No evidence of torsion. Abdomen/Pelvis CT 06/29/17 08:19 IMPRESSION: NO SIGNIFICANT OR ACUTE FINDING IN THE ABDOMEN OR PELVIS ON CT SCAN WITH IV CONTRAST. Chest X-Ray 06/29/17 16:28 IMPRESSION: NO ACUTE DISEASE. Assessment & Plan - Diagnosis (1) Preoperative cardiovascular examination Is this a current diagnosis for this admission?: Yes (2) Cardiac pacemaker in situ Is this a current diagnosis for this admission?: Yes (3) Atrial fibrillation Qualifiers: Atrial fibrillation type: paroxysmal Qualified Code(s): I48.0 - Paroxysmal atrial fibrillation Is this a current diagnosis for this admission?: Yes (4) Cellulitis of scrotum Is this a current diagnosis for this admission?: Yes (5) Congestive heart failure (CHF) Qualifiers: Heart failure type: combined systolic and diastolic Heart failure chronicity: chronic Qualified Code(s): I50.42 - Chronic combined systolic ( congestive) and diastolic (congestive) heart failure Is this a current diagnosis for this admission?: Yes (6) Diabetes Qualifiers: Diabetes mellitus type: type 2 Diabetes mellitus halfway insulin use: unspecified halfway insulin use status Diabetes mellitus complication status : with unspecified complications Qualified Code(s): E11.8 - Type 2 diabetes mellitus with unspecified complications Is this a current diagnosis for this admission?: Yes (7) Obesity (BMI 30-39.9) Is this a current diagnosis for this admission?: Yes (8) CAD (coronary artery disease) Qualifiers: Coronary Disease-Associated Artery/Lesion type: unspecified vessel or lesion type [place] vs. transplanted heart: [place] heart Associated angina: angina presence unspecified Qualified Code(s): I25.10 - Atherosclerotic heart disease of [place] coronary artery without angina pectoris Is this a current diagnosis for this admission?: Yes - Notes Notes: Postop day 1 currently is stable. We will repeat an EKG in the morning. Cardiac pacemaker: Telemetry strips review shows normal functioning so far. Atrial fibrillation: Chronic, Resume chronic anticoagulation as soon as feasible. Congestive heart failure: Seems compensated by my exam. Patient does have some chronic pedal edema and chronic shortness of breath. On the abdominal CT, lung bases were available for review and did not show any evidence of congestion. Diabetes: Recommend good control. Avoid any hyper or hypoglycemia. Obesity: Currently stable. Patient will benefit from weight loss on a long- term basis. 2D echo was reviewed. Showed mildly depressed LVEF. No significant stenotic valve disease noted
[2017-07-01] MEDS ORDERED: GUAIFENESIN 600 MG TABLET.SA PO ONE (23:00)
[2017-07-01] MEDS ORDERED: OXYCODONE HCL IR 5 MG TABLET ONE (23:14)
[2017-07-01] MEDS: VANCOMYCIN HCL 1,000 MG in DEXTROSE 5%-WATER 250 ML IV SCH (23:35)
[2017-07-02] MEDS: MEROPENEM 1 GM in NORMAL SALINE 100 ML IV SCH (03:11)
--- NOTE | 2017-07-02 10:48 | EKG REPORT ---
SEVERITY:- ABNORMAL ECG - VENTRICULAR-PACED COMPLEXES NONSPECIFIC INTRAVENTRICULAR CONDUCTION DELAY VPCs : Confirmed by: Eri Leal 02-Jul-2017 10:48:03
[2017-07-02] MEDS: LISINOPRIL 10 MG TABLET PO SCH (12:26)
[2017-07-02] MEDS: LEVOFLOXACIN 750 MG/D5W RTU 750 MG/150 ML RTUPB IV SCH (12:26)
[2017-07-02] MEDS: CETIRIZINE 10 MG TABLET PO SCH (12:26)
[2017-07-02] MEDS: FUROSEMIDE 20 MG TABLET PO SCH (12:26)
[2017-07-02] MEDS: METOPROLOL SUCCINATE 50 MG TAB.SR.24H PO SCH (12:27)
[2017-07-02] MEDS: DOCUSATE SODIUM 100 MG CAPSULE PO SCH ×2 (12:27→17:56)
[2017-07-02] MEDS: VANCOMYCIN HCL 1,000 MG in DEXTROSE 5%-WATER 250 ML IV SCH (12:27)
--- NOTE | 2017-07-02 13:33 | PDOC PROGRESS REPORT ---
Subjective Progress Note for:: 07/02/17 Subjective:: Patient was admitted with scrotal cellulitis and is currently status post incision and drainage by general surgery. He says he is feeling better and pain appears to be somewhat less. He still has yellowish drainage from the incision site with erythema of the scrotum. Reason For Visit: SCROTAL CELLULITIS Physical Exam Vital Signs: Temp Pulse Resp BP Pulse Ox 98.7 F 65 16 109/42 L 96 07/02/17 00:29 07/02/17 00:29 07/02/17 00:29 07/02/17 00:29 07/02/17 00:29 Intake & Output 07/01/17 07/02/17 07/03/17 06:59 06:59 06:59 Intake Total 6750 3145 Output Total 2650 1100 Balance 4100 2045 Weight 113 kg 113 kg General appearance: PRESENT: no acute distress Neck exam: ABSENT: carotid bruit, JVD, lymphadenopathy, thyromegaly Cardiovascular exam: PRESENT: RRR. ABSENT: diastolic murmur, rubs, systolic murmur GI/Abdominal exam: PRESENT: normal bowel sounds, soft. ABSENT: distended, guarding, mass, organolmegaly, rebound, tenderness Rectal exam: PRESENT: deferred Gentrourinary exam: PRESENT: scrotal swelling - Erythema bilaterally with some tenderness in the scrotum Extremities exam: PRESENT: full ROM. ABSENT: calf tenderness, clubbing, pedal edema Musculoskeletal exam: PRESENT: ambulatory Neurological exam: PRESENT: alert, awake, oriented to person, oriented to place , oriented to time, oriented to situation, CN II-XII grossly intact. ABSENT: motor sensory deficit Results Laboratory Results: 07/01/17 04:20 07/01/17 09:47 06/29/17 04:15 Clean Catch Midstream Urine Culture - Final 3,000 col/ml Impressions: Scrotum Ultrasound 06/29/17 00:29 IMPRESSION: 1. Large bilateral hydroceles. 2. Normal testes. No evidence of torsion. Abdomen/Pelvis CT 06/29/17 08:19 IMPRESSION: NO SIGNIFICANT OR ACUTE FINDING IN THE ABDOMEN OR PELVIS ON CT SCAN WITH IV CONTRAST. Chest X-Ray 06/29/17 16:28 IMPRESSION: NO ACUTE DISEASE. Assessment & Plan - Time Time Spent with patient: 15-24 minutes Medications reviewed and adjusted accordingly: Yes Anticipated discharge: Home with Homehealth - Inpatient Certification Based on my medical assessment, after consideration of the patient's comorbidities, presenting symptoms, or acuity I expect that the services needed warrant INPATIENT care.: Yes - Plan Summary Plan Summary: 1.Scrotal cellulitis status post incision and drainage. Cultures are currently yielding methicillin-resistant Staphylococcus aureus. Patient is on vancomycin as well as meropenem. 2. Chronic atrial fibrillation with anticoagulants currently on hold. Will discuss with surgeon as when to restart this hopefully ite will be okay to restart 3. 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 4. Type 2 diabetes mellitus currently on sliding scale insulin 5. Obesity with BMI of 36 weight loss encouraged 6. Stable coronary artery disease
[2017-07-02] MEDS ORDERED: MEROPENEM 1 GM in NORMAL SALINE 50 ML IV SCH (14:00)
--- NOTE | 2017-07-02 14:18 | Progress Note ---
Provider Note Provider Note: ID Consult Note Asked to review chart by Pharmacy. Mr Martinez is an 81 yo man who p/w R scrotal swelling and fever x 3 days prior to admission on 06/29. He was found to have a R hemiscrotal abscess with cellulitis and underwent operative debridement on 06/30. His blood cultures from 06/29 are negative. His urine culture from 06/29 is negative. Culture obtained at the time of surgery on 06/30/17 grew MRSA. Mr. Martinez has been on levaquin, vancomycin and meropenem. His WBC count has improved from 21k down to 13.6k now. His pain has improved, and he is reportedly feeling better. Impression/Recommendations R scrotal abscess and cellulitis due to MRSA infection, s/p debridement. The patient has already received antibiotic therapy for the past 4 days and, most importantly, has had debridement/drainage of the abscess. He is reported to be improving. He may need only 1-2 more days of antibiotic therapy for residual cellulitis with oral Bactrim 1 DS tab BID. Vancomycin and meropenem can be discontinued. Jacky Camacho MD pager [phone]
[2017-07-02] MEDS: OXYCODONE HCL IR 5 MG TABLET PO PRN ×2 (16:42→22:16)
[2017-07-02] MEDS: CLINDAMYCIN 600 MG/D5W RTU 600 MG/50 ML RTUPB IV SCH (17:56)
[2017-07-02] MEDS: NORMAL SALINE 1000 ML 1,000 ML IV PRN (22:16)
[2017-07-02] MEDS: GUAIFENESIN 600 MG TABLET.SA PO SCH (22:16)
[2017-07-02] MEDS ORDERED: DEXTROSE 50%-WATER 25 GM/50 ML DISP.SYRIN IV PRN (23:15)
[2017-07-03] MEDS: CLINDAMYCIN 600 MG/D5W RTU 600 MG/50 ML RTUPB IV SCH ×3 (01:49→17:20)
[2017-07-03 06:58] LABS: ABSOLUTE EOSINOPHILS # (AUTO) 0.3 10^3/uL (0.0-0.6); ABSOLUTE LYMPHOCYTES (AUTO) 1.2 10^3/uL (0.5-4.7); ABSOLUTE MONOCYTES (AUTO) 0.8 10^3/uL (0.1-1.4); BASOPHILS % (AUTO) 0.3 % (0-2); EOSINOPHILS % (AUTO) 3.9 % (0-6); HEMOGLOBIN 11.3 g/dL (13.5-17.0); MEAN CORPUSCULAR HEMOGLOBIN 33.1 pg (27.0-33.4); MEAN CORPUSCULAR HGB CONC 34.3 g/dL (32.0-36.0); MEAN CORPUSCULAR VOLUME 97 fl (80-97); MONOCYTES % (AUTO) 9.7 % (3-13); PLATELET COUNT 111 10^3/uL (150-450); RED BLOOD COUNT 3.42 10^6/uL (4.35-5.55); SEGMENTED NEUTROPHILS % (AUTO) 72.1 % (42-78); TOTAL CELLS COUNTED % (AUTO) 100 %; WHITE BLOOD COUNT 8.3 10^3/uL (4.0-10.5)
[2017-07-03 07:12] LABS: ANION GAP 8 (5-19); BLOOD UREA NITROGEN 23 mg/dL (7-20); CALCIUM 8.4 mg/dL (8.4-10.2); CARBON DIOXIDE 23 mmol/L (22-30); CHLORIDE 108 mmol/L (98-107); GLUCOSE 107 mg/dL (75-110); SODIUM 139.1 mmol/L (137-145)
[2017-07-03] MEDS: FUROSEMIDE 20 MG TABLET PO SCH (08:09)
[2017-07-03] MEDS: OXYCODONE HCL IR 5 MG TABLET PO PRN ×2 (08:11→17:20)
[2017-07-03] MEDS: DOCUSATE SODIUM 100 MG CAPSULE PO SCH ×2 (10:04→17:20)
[2017-07-03] MEDS: CETIRIZINE 10 MG TABLET PO SCH (10:04)
[2017-07-03] MEDS: LISINOPRIL 10 MG TABLET PO SCH (10:05)
[2017-07-03] MEDS: METOPROLOL SUCCINATE 50 MG TAB.SR.24H PO SCH (10:05)
--- NOTE | 2017-07-03 17:25 | PDOC PROGRESS REPORT ---
Subjective Progress Note for:: 07/03/17 Subjective:: Patient was admitted with scrotal cellulitis and is currently status post incision and drainage by general surgery. He says he is feeling better and pain appears to be somewhat less. He still has yellowish drainage from the incision site with erythema of the scrotum however it does appear to be improving Reason For Visit: SCROTAL CELLULITIS Physical Exam Vital Signs: Temp Pulse Resp BP Pulse Ox 98.2 F 58 L 21 H 128/48 H 98 07/03/17 16:48 07/03/17 16:48 07/03/17 16:48 07/03/17 16:48 07/03/17 16:48 Intake & Output 07/02/17 07/03/17 07/04/17 06:59 06:59 06:59 Intake Total 3145 3861 Output Total 1100 1725 Balance 2045 2136 Weight 113 kg 116 kg General appearance: PRESENT: no acute distress, well-developed, well-nourished Head exam: PRESENT: atraumatic Eye exam: PRESENT: conjunctiva pink, EOMI, PERRLA. ABSENT: scleral icterus Ear exam: PRESENT: normal external ear exam Neck exam: ABSENT: carotid bruit, JVD, lymphadenopathy, thyromegaly Respiratory exam: PRESENT: clear to auscultation barbie. ABSENT: rales, rhonchi, wheezes Cardiovascular exam: PRESENT: RRR. ABSENT: diastolic murmur, rubs, systolic murmur Pulses: PRESENT: normal dorsalis pedis pul GI/Abdominal exam: PRESENT: normal bowel sounds, soft. ABSENT: distended, guarding, mass, organolmegaly, rebound, tenderness Rectal exam: PRESENT: deferred Gentrourinary exam: PRESENT: erythema - scrotum and testicles, scrotal swelling , testicular tenderness Extremities exam: PRESENT: full ROM. ABSENT: calf tenderness, clubbing, pedal edema Musculoskeletal exam: PRESENT: ambulatory Neurological exam: PRESENT: alert, awake, oriented to person, oriented to place , oriented to time, oriented to situation, CN II-XII grossly intact. ABSENT: motor sensory deficit Results Laboratory Results: 07/03/17 06:36 07/03/17 06:36 07/03/17 07/03/17 06:36 06:36 WBC 8.3 RBC 3.42 L Hgb 11.3 L Hct 33.0 L MCV 97 MCH 33.1 MCHC 34.3 RDW 14.0 Plt Count 111 L Seg Neutrophils % 72.1 Lymphocytes % 14.0 Monocytes % 9.7 Eosinophils % 3.9 Basophils % 0.3 Absolute Neutrophils 6.0 Absolute Lymphocytes 1.2 Absolute Monocytes 0.8 Absolute Eosinophils 0.3 Absolute Basophils 0.0 Sodium 139.1 Potassium 4.0 Chloride 108 H Carbon Dioxide 23 Anion Gap 8 BUN 23 H Creatinine 0.97 Est GFR ( Amer) > 60 Est GFR (Non-Af Amer) > 60 Glucose 107 Calcium 8.4 06/30/17 08:29 Scrotum Gram Stain - Final 06/30/17 08:29 Scrotum Wound Culture - Final Mrsa (Meth Resis Staph Aureus) No Anaerobic Organisms Impressions: Scrotum Ultrasound 06/29/17 00:29 IMPRESSION: 1. Large bilateral hydroceles. 2. Normal testes. No evidence of torsion. Abdomen/Pelvis CT 06/29/17 08:19 IMPRESSION: NO SIGNIFICANT OR ACUTE FINDING IN THE ABDOMEN OR PELVIS ON CT SCAN WITH IV CONTRAST. Chest X-Ray 06/29/17 16:28 IMPRESSION: NO ACUTE DISEASE. Assessment & Plan - Time Time Spent with patient: 15-24 minutes Medications reviewed and adjusted accordingly: Yes Anticipated discharge: Home with Homehealth Within: within 72 hours - Inpatient Certification Based on my medical assessment, after consideration of the patient's comorbidities, presenting symptoms, or acuity I expect that the services needed warrant INPATIENT care.: Yes Medical Necessity: Need Close Monitoring Due to Risk of Patient Decompensation, Need for Surgery - Plan Summary Plan Summary: 1.Scrotal cellulitis status post incision and drainage. Cultures are yielding methicillin-resistant Staphylococcus aureus. Patient is off vancomycin and meropenem after 4 days and currently on Clindamycin. Patient will benefit from continued Parenteral treatment at this time 2. Chronic atrial fibrillation with anticoagulants currently on hold. Will restart Apixaban, Digoxin 3. 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 Lasix, hold NTG paste for now. 4. Type 2 diabetes mellitus currently on sliding scale insulin 5. Obesity with BMI of 36 weight loss encouraged 6. Stable coronary artery disease
--- NOTE | 2017-07-03 22:33 | PDOC PROGRESS REPORT ---
Subjective Progress Note for:: 07/01/17 Subjective:: He is resting more comfortably. He has not been up ambulating since his surgery. He feels there is some scrotal burning. He states overall he feels much better. He denies any chest pain, shortness of breath, weakness, fever or chills. Reason For Visit: SCROTAL CELLULITIS Physical Exam Vital Signs: Temp Pulse Resp BP Pulse Ox 98.0 F 61 18 126/60 H 96 07/03/17 19:34 07/03/17 19:34 07/03/17 19:34 07/03/17 19:34 07/03/17 19:34 Intake & Output 07/02/17 07/03/17 07/04/17 06:59 06:59 06:59 Intake Total 3145 3861 1660 Output Total 1100 1725 625 Balance 2045 2136 1035 Weight 113 kg 116 kg General appearance: PRESENT: no acute distress, well-developed, well-nourished Neck exam: ABSENT: carotid bruit, JVD, lymphadenopathy, thyromegaly Respiratory exam: PRESENT: clear to auscultation barbie. ABSENT: rales, rhonchi, wheezes Cardiovascular exam: PRESENT: RRR. ABSENT: diastolic murmur, rubs, systolic murmur Pulses: PRESENT: normal dorsalis pedis pul Vascular exam: PRESENT: normal capillary refill GI/Abdominal exam: PRESENT: normal bowel sounds, soft. ABSENT: distended, guarding, mass, organolmegaly, rebound, tenderness Extremities exam: PRESENT: full ROM. ABSENT: calf tenderness, clubbing, pedal edema Neurological exam: PRESENT: alert, awake, oriented to person, oriented to place , oriented to time, oriented to situation, CN II-XII grossly intact. ABSENT: motor sensory deficit Results Laboratory Results: 07/03/17 06:36 07/03/17 06:36 07/03/17 07/03/17 06:36 06:36 WBC 8.3 RBC 3.42 L Hgb 11.3 L Hct 33.0 L MCV 97 MCH 33.1 MCHC 34.3 RDW 14.0 Plt Count 111 L Seg Neutrophils % 72.1 Lymphocytes % 14.0 Monocytes % 9.7 Eosinophils % 3.9 Basophils % 0.3 Absolute Neutrophils 6.0 Absolute Lymphocytes 1.2 Absolute Monocytes 0.8 Absolute Eosinophils 0.3 Absolute Basophils 0.0 Sodium 139.1 Potassium 4.0 Chloride 108 H Carbon Dioxide 23 Anion Gap 8 BUN 23 H Creatinine 0.97 Est GFR ( Amer) > 60 Est GFR (Non-Af Amer) > 60 Glucose 107 Calcium 8.4 06/30/17 08:29 Scrotum Gram Stain - Final 06/30/17 08:29 Scrotum Wound Culture - Final Mrsa (Meth Resis Staph Aureus) No Anaerobic Organisms Impressions: Scrotum Ultrasound 06/29/17 00:29 IMPRESSION: 1. Large bilateral hydroceles. 2. Normal testes. No evidence of torsion. Abdomen/Pelvis CT 06/29/17 08:19 IMPRESSION: NO SIGNIFICANT OR ACUTE FINDING IN THE ABDOMEN OR PELVIS ON CT SCAN WITH IV CONTRAST. Chest X-Ray 06/29/17 16:28 IMPRESSION: NO ACUTE DISEASE. Assessment & Plan - Diagnosis (1) Atrial fibrillation Qualifiers: Atrial fibrillation type: paroxysmal Qualified Code(s): I48.0 - Paroxysmal atrial fibrillation Is this a current diagnosis for this admission?: Yes Plan: currently rate controlled. continue BB. Will need anticoagulation tomorrow (2) CAD (coronary artery disease) Qualifiers: Coronary Disease-Associated Artery/Lesion type: unspecified vessel or lesion type [place] vs. 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 [facility] insulin use status Diabetes mellitus complication status : with unspecified complications Qualified Code(s): E11.8 - Type 2 diabetes mellitus with unspecified complications Is this a current diagnosis for this admission?: Yes Plan: continue current regiment, monitor blood sugar - Time Time Spent with patient: 15-24 minutes Medications reviewed and adjusted accordingly: Yes Anticipated discharge: Home Within: within 72 hours - Inpatient Certification Based on my medical assessment, after consideration of the patient's comorbidities, presenting symptoms, or acuity I expect that the services needed warrant INPATIENT care.: Yes I certify that my determination is in accordance with my understanding of Medicare's requirements for reasonable and necessary INPATIENT services [42 CFR 412.3e].: Yes Medical Necessity: Significant Comorbidiites Make Outpatient Treatment Too Risky , Need Close Monitoring Due to Risk of Patient Decompensation, Need for IV Antibiotics
--- NOTE | 2017-07-04 00:38 | PDOC PROGRESS REPORT ---
Subjective Progress Note for:: 07/03/17 Subjective:: less pains along right scrotal area Reason For Visit: SCROTAL CELLULITIS Physical Exam Vital Signs: Temp Pulse Resp BP Pulse Ox 97.8 F 60 20 124/57 L 95 07/03/17 22:48 07/03/17 22:48 07/03/17 22:48 07/03/17 22:48 07/03/17 22:48 Intake & Output 07/02/17 07/03/17 07/04/17 06:59 06:59 06:59 Intake Total 3145 3861 1660 Output Total 1100 1725 625 Balance 2044 2136 1035 Weight 113 kg 116 kg Exam: INflammation along right groin and right scrotum appears to be less than last night. No need for further I&D at this time Results Laboratory Results: 07/03/17 06:36 07/03/17 06:36 07/03/17 07/03/17 06:36 06:36 WBC 8.3 RBC 3.42 L Hgb 11.3 L Hct 33.0 L MCV 97 MCH 33.1 MCHC 34.3 RDW 14.0 Plt Count 111 L Seg Neutrophils % 72.1 Lymphocytes % 14.0 Monocytes % 9.7 Eosinophils % 3.9 Basophils % 0.3 Absolute Neutrophils 6.0 Absolute Lymphocytes 1.2 Absolute Monocytes 0.8 Absolute Eosinophils 0.3 Absolute Basophils 0.0 Sodium 139.1 Potassium 4.0 Chloride 108 H Carbon Dioxide 23 Anion Gap 8 BUN 23 H Creatinine 0.97 Est GFR ( Amer) > 60 Est GFR (Non-Af Amer) > 60 Glucose 107 Calcium 8.4 06/30/17 08:29 Scrotum Gram Stain - Final 06/30/17 08:29 Scrotum Wound Culture - Final Mrsa (Meth Resis Staph Aureus) No Anaerobic Organisms Impressions: Scrotum Ultrasound 06/29/17 00:29 IMPRESSION: 1. Large bilateral hydroceles. 2. Normal testes. No evidence of torsion. Abdomen/Pelvis CT 06/29/17 08:19 IMPRESSION: NO SIGNIFICANT OR ACUTE FINDING IN THE ABDOMEN OR PELVIS ON CT SCAN WITH IV CONTRAST. Chest X-Ray 06/29/17 16:28 IMPRESSION: NO ACUTE DISEASE. Assessment & Plan - Plan Summary Plan Summary: Hold of re-operation Continue IV antibiotics.
--- NOTE | 2017-07-04 00:42 | PDOC PROGRESS REPORT ---
Subjective Progress Note for:: 07/03/17 Subjective:: Less pains scrotal area and groin Reason For Visit: SCROTAL CELLULITIS Physical Exam Vital Signs: Temp Pulse Resp BP Pulse Ox 98.2 F 58 L 21 H 128/48 H 98 07/03/17 16:48 07/03/17 16:48 07/03/17 16:48 07/03/17 16:48 07/03/17 16:48 Intake & Output 07/02/17 07/03/17 07/04/17 06:59 06:59 06:59 Intake Total 3145 3861 1660 Output Total 1100 1725 625 Balance 5 2136 1035 Weight 113 kg 116 kg Exam: There appears to be more inflammation along the right groin and on the anterior aspect of the scrotum. Will keep NPO and re-evaluate in am for possible further I &D Results Laboratory Results: 07/03/17 06:36 07/03/17 06:36 07/03/17 07/03/17 06:36 06:36 WBC 8.3 RBC 3.42 L Hgb 11.3 L Hct 33.0 L MCV 97 MCH 33.1 MCHC 34.3 RDW 14.0 Plt Count 111 L Seg Neutrophils % 72.1 Lymphocytes % 14.0 Monocytes % 9.7 Eosinophils % 3.9 Basophils % 0.3 Absolute Neutrophils 6.0 Absolute Lymphocytes 1.2 Absolute Monocytes 0.8 Absolute Eosinophils 0.3 Absolute Basophils 0.0 Sodium 139.1 Potassium 4.0 Chloride 108 H Carbon Dioxide 23 Anion Gap 8 BUN 23 H Creatinine 0.97 Est GFR ( Amer) > 60 Est GFR (Non-Af Amer) > 60 Glucose 107 Calcium 8.4 06/30/17 08:29 Scrotum Gram Stain - Final 06/30/17 08:29 Scrotum Wound Culture - Final Mrsa (Meth Resis Staph Aureus) No Anaerobic Organisms Impressions: Scrotum Ultrasound 06/29/17 00:29 IMPRESSION: 1. Large bilateral hydroceles. 2. Normal testes. No evidence of torsion. Abdomen/Pelvis CT 06/29/17 08:19 IMPRESSION: NO SIGNIFICANT OR ACUTE FINDING IN THE ABDOMEN OR PELVIS ON CT SCAN WITH IV CONTRAST. Chest X-Ray 06/29/17 16:28 IMPRESSION: NO ACUTE DISEASE.
[2017-07-04] MEDS: GUAIFENESIN 600 MG TABLET.SA PO SCH ×2 (01:00→22:43)
[2017-07-04] MEDS: APIXABAN 5 MG TABLET PO SCH ×3 (01:00→22:43)
[2017-07-04] MEDS: SACUBITRIL/VALSARTAN 49 MG/51 MG TABLET PO SCH ×3 (01:00→22:43)
[2017-07-04] MEDS: GABAPENTIN 100 MG CAPSULE PO SCH ×3 (01:00→22:43)
[2017-07-04] MEDS: CLINDAMYCIN 600 MG/D5W RTU 600 MG/50 ML RTUPB IV SCH ×3 (01:05→18:20)
[2017-07-04 04:57] LABS: HEMATOCRIT 34.4 % (37.9-51.0); HEMOGLOBIN 11.8 g/dL (13.5-17.0); MEAN CORPUSCULAR HEMOGLOBIN 33.2 pg (27.0-33.4); MEAN CORPUSCULAR HGB CONC 34.3 g/dL (32.0-36.0); MEAN CORPUSCULAR VOLUME 97 fl (80-97); PLATELET COUNT 126 10^3/uL (150-450); RED BLOOD COUNT 3.55 10^6/uL (4.35-5.55); RED CELL DISTRIBUTION WIDTH 14.1 % (11.5-14.0); WHITE BLOOD COUNT 9.3 10^3/uL (4.0-10.5)
[2017-07-04 05:33] LABS: ANION GAP 9 (5-19); BLOOD UREA NITROGEN 20 mg/dL (7-20); CALCIUM 8.5 mg/dL (8.4-10.2); CARBON DIOXIDE 23 mmol/L (22-30); CHLORIDE 108 mmol/L (98-107); DIGOXIN 0.53 ng/mL (0.8-2.0); GLUCOSE 108 mg/dL (75-110); POTASSIUM 4.1 mmol/L (3.6-5.0); SODIUM 139.7 mmol/L (137-145)
[2017-07-04] MEDS: NORMAL SALINE 1000 ML 1,000 ML IV PRN (07:49)
[2017-07-04] MEDS: DIGOXIN 0.125 MG TABLET PO SCH (09:07)
[2017-07-04] MEDS: METOPROLOL SUCCINATE 50 MG TAB.SR.24H PO SCH (09:08)
[2017-07-04] MEDS: FUROSEMIDE 20 MG TABLET PO SCH (09:09)
[2017-07-04] MEDS: CLOPIDOGREL BISULFATE 75 MG TABLET PO SCH (09:09)
[2017-07-04] MEDS: CETIRIZINE 10 MG TABLET PO SCH (09:09)
[2017-07-04] MEDS: DOCUSATE SODIUM 100 MG CAPSULE PO SCH ×2 (09:10→18:20)
[2017-07-04] MEDS: EZETIMIBE 10 MG TABLET PO SCH (09:10)
--- NOTE | 2017-07-04 10:14 | PDOC PROGRESS REPORT ---
Subjective Progress Note for:: 07/04/17 Reason For Visit: SCROTAL CELLULITIS Vision is postoperative day 5 scrotal debridement, has no new complaints; states his scrotum feels better; still able to void. Physical Exam Vital Signs: Temp Pulse Resp BP Pulse Ox 97.8 F 60 20 124/57 L 95 07/03/17 22:48 07/03/17 22:48 07/03/17 22:48 07/03/17 22:48 07/03/17 22:48 Intake & Output 07/03/17 07/04/17 07/05/17 06:59 06:59 06:59 Intake Total 3861 3410 Output Total 1725 1375 Balance 2135 2034 Weight 116 kg 115.8 kg General appearance: PRESENT: no acute distress GI/Abdominal exam: PRESENT: other - Scrotal region examined; moderate edema persists around the penis, and throughout the scrotum; bands still edematous. Open right hemiscrotal wound probed open, reasonably clean with minimal necrotic tissue. Base of scrotum still extremely boggy. Results Laboratory Results: 07/04/17 04:28 07/04/17 04:28 07/04/17 07/04/17 04:28 04:28 WBC 9.3 RBC 3.55 L Hgb 11.8 L Hct 34.4 L MCV 97 MCH 33.2 MCHC 34.3 RDW 14.1 H Plt Count 126 L Sodium 139.7 Potassium 4.1 Chloride 108 H Carbon Dioxide 23 Anion Gap 9 BUN 20 Creatinine 1.00 Est GFR ( Amer) > 60 Est GFR (Non-Af Amer) > 60 Glucose 108 Calcium 8.5 06/30/17 08:29 Scrotum Gram Stain - Final 06/30/17 08:29 Scrotum Wound Culture - Final Mrsa (Meth Resis Staph Aureus) No Anaerobic Organisms Impressions: Scrotum Ultrasound 06/29/17 00:29 IMPRESSION: 1. Large bilateral hydroceles. 2. Normal testes. No evidence of torsion. Abdomen/Pelvis CT 06/29/17 08:19 IMPRESSION: NO SIGNIFICANT OR ACUTE FINDING IN THE ABDOMEN OR PELVIS ON CT SCAN WITH IV CONTRAST. Chest X-Ray 06/29/17 16:28 IMPRESSION: NO ACUTE DISEASE. Assessment & Plan - Diagnosis (1) Cellulitis of scrotum Is this a current diagnosis for this admission?: Yes Plan: Patient is postoperative day 5 status post debridement of right hemiscrotum, clinically improved with resolution of fever, leukocytosis; edema persisting, but reduced and degree of necrotic tissue in wound minimal Commendations: 1. Initiate dressing changes; orders written 2. Continue intravenous antibiotics for another 24-48 hours. 3. Initiate MRSA protocol for contamination reduction etc. - Time Time Spent with patient: 15-24 minutes
--- NOTE | 2017-07-04 12:16 | PDOC PROGRESS REPORT ---
Subjective Progress Note for:: 07/04/17 Subjective:: Patient was admitted with scrotal cellulitis and is currently status post incision and drainage by general surgery. Encouraged on ambulation Reason For Visit: SCROTAL CELLULITIS Physical Exam Vital Signs: Temp Pulse Resp BP Pulse Ox 97.8 F 60 20 124/57 L 95 07/03/17 22:48 07/03/17 22:48 07/03/17 22:48 07/03/17 22:48 07/03/17 22:48 Intake & Output 07/03/17 07/04/17 07/05/17 06:59 06:59 06:59 Intake Total 3861 3410 Output Total 1725 1375 Balance 2135 2034 Weight 116 kg 115.8 kg General appearance: PRESENT: no acute distress, obese Head exam: PRESENT: atraumatic Eye exam: PRESENT: conjunctiva pink, EOMI, PERRLA. ABSENT: scleral icterus Ear exam: PRESENT: normal external ear exam Neck exam: ABSENT: carotid bruit, JVD, lymphadenopathy, thyromegaly Respiratory exam: PRESENT: clear to auscultation barbie. ABSENT: rales, rhonchi, wheezes Cardiovascular exam: PRESENT: RRR. ABSENT: diastolic murmur, rubs, systolic murmur GI/Abdominal exam: PRESENT: normal bowel sounds, soft. ABSENT: distended, guarding, mass, organolmegaly, rebound, tenderness Gentrourinary exam: PRESENT: erythema, scrotal swelling, other - does appear to be improving Musculoskeletal exam: PRESENT: ambulatory Neurological exam: PRESENT: alert, awake, oriented to person, oriented to place , oriented to time, oriented to situation, CN II-XII grossly intact. ABSENT: motor sensory deficit Results Laboratory Results: 07/04/17 04:28 07/04/17 04:28 07/04/17 07/04/17 04:28 04:28 WBC 9.3 RBC 3.55 L Hgb 11.8 L Hct 34.4 L MCV 97 MCH 33.2 MCHC 34.3 RDW 14.1 H Plt Count 126 L Sodium 139.7 Potassium 4.1 Chloride 108 H Carbon Dioxide 23 Anion Gap 9 BUN 20 Creatinine 1.00 Est GFR ( Amer) > 60 Est GFR (Non-Af Amer) > 60 Glucose 108 Calcium 8.5 06/30/17 08:29 Scrotum Gram Stain - Final 06/30/17 08:29 Scrotum Wound Culture - Final Mrsa (Meth Resis Staph Aureus) No Anaerobic Organisms Impressions: Scrotum Ultrasound 06/29/17 00:29 IMPRESSION: 1. Large bilateral hydroceles. 2. Normal testes. No evidence of torsion. Abdomen/Pelvis CT 06/29/17 08:19 IMPRESSION: NO SIGNIFICANT OR ACUTE FINDING IN THE ABDOMEN OR PELVIS ON CT SCAN WITH IV CONTRAST. Chest X-Ray 06/29/17 16:28 IMPRESSION: NO ACUTE DISEASE. Assessment & Plan - Time Time Spent with patient: 15-24 minutes Medications reviewed and adjusted accordingly: Yes Anticipated discharge: Home - Inpatient Certification Based on my medical assessment, after consideration of the patient's comorbidities, presenting symptoms, or acuity I expect that the services needed warrant INPATIENT care.: Yes Medical Necessity: Need for IV Antibiotics - Plan Summary Plan Summary: 1.Scrotal cellulitis status post incision and drainage. Cultures are yielding methicillin-resistant Staphylococcus aureus. Continue Clindamycin. Patient will benefit from continued Parenteral treatment for another day or 2 2. Chronic atrial fibrillation on Apixaban, Digoxin 3. 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 Cont Lasix, . 4. Type 2 diabetes mellitus currently on sliding scale insulin 5. Obesity with BMI of 36 weight loss encouraged 6. Stable coronary artery disease
[2017-07-05] MEDS: OXYCODONE HCL IR 5 MG TABLET PO PRN (00:03)
[2017-07-05] MEDS: CLINDAMYCIN 600 MG/D5W RTU 600 MG/50 ML RTUPB IV SCH ×3 (03:09→18:06)
[2017-07-05] MEDS: METOPROLOL SUCCINATE 50 MG TAB.SR.24H PO SCH (10:38)
[2017-07-05] MEDS: GABAPENTIN 100 MG CAPSULE PO SCH ×2 (10:38→22:31)
[2017-07-05] MEDS: CLOPIDOGREL BISULFATE 75 MG TABLET PO SCH (10:40)
[2017-07-05] MEDS: FUROSEMIDE 20 MG TABLET PO SCH (10:40)
[2017-07-05] MEDS: SACUBITRIL/VALSARTAN 49 MG/51 MG TABLET PO SCH ×2 (10:40→22:32)
[2017-07-05] MEDS: APIXABAN 5 MG TABLET PO SCH ×2 (10:40→22:31)
[2017-07-05] MEDS: DOCUSATE SODIUM 100 MG CAPSULE PO SCH ×2 (10:40→18:08)
[2017-07-05] MEDS: DIGOXIN 0.125 MG TABLET PO SCH (10:40)
[2017-07-05] MEDS: EZETIMIBE 10 MG TABLET PO SCH (10:40)
[2017-07-05] MEDS: CETIRIZINE 10 MG TABLET PO SCH (10:40)
--- NOTE | 2017-07-05 10:44 | PDOC PROGRESS REPORT ---
Subjective Progress Note for:: 07/05/17 Subjective:: Patient was admitted with scrotal cellulitis and is currently status post incision and drainage by general surgery. Denies any new complaints. He is wheezing intermittently. Reason For Visit: SCROTAL CELLULITIS Physical Exam Vital Signs: Temp Pulse Resp BP Pulse Ox 97.6 F 67 22 H 147/67 H 93 07/05/17 09:15 07/05/17 09:15 07/05/17 09:15 07/05/17 09:15 07/05/17 09:15 Intake & Output 07/04/17 07/05/17 07/06/17 06:59 06:59 06:59 Intake Total 3410 1451 Output Total 1375 2325 Balance 2035 -874 Weight 115.8 kg 131.5 kg General appearance: PRESENT: no acute distress, hard of hearing, well-developed , well-nourished Head exam: PRESENT: atraumatic Eye exam: PRESENT: conjunctiva pink, EOMI, PERRLA. ABSENT: scleral icterus Ear exam: PRESENT: normal external ear exam Neck exam: ABSENT: carotid bruit, JVD, lymphadenopathy, thyromegaly Respiratory exam: PRESENT: wheezes - expiratory wheezing. ABSENT: rales, rhonchi Cardiovascular exam: PRESENT: irregular rhythm. ABSENT: diastolic murmur, systolic murmur Pulses: PRESENT: normal dorsalis pedis pul GI/Abdominal exam: PRESENT: normal bowel sounds, soft. ABSENT: distended, guarding, mass, organolmegaly, rebound, tenderness Rectal exam: PRESENT: deferred Gentrourinary exam: PRESENT: erythema, scrotal swelling, testicular tenderness - Continues to improve. Wound from incision is clean, no discharges seen Neurological exam: PRESENT: alert, awake, oriented to person, oriented to place , oriented to time, oriented to situation Psychiatric exam: PRESENT: agitated Results Laboratory Results: 07/04/17 04:28 07/04/17 04:28 Impressions: Scrotum Ultrasound 06/29/17 00:29 IMPRESSION: 1. Large bilateral hydroceles. 2. Normal testes. No evidence of torsion. Abdomen/Pelvis CT 06/29/17 08:19 IMPRESSION: NO SIGNIFICANT OR ACUTE FINDING IN THE ABDOMEN OR PELVIS ON CT SCAN WITH IV CONTRAST. Chest X-Ray 06/29/17 16:28 IMPRESSION: NO ACUTE DISEASE. Assessment & Plan - Time Time Spent with patient: 15-24 minutes Medications reviewed and adjusted accordingly: Yes Anticipated discharge: Acute Rehab Within: within 72 hours - Inpatient Certification Based on my medical assessment, after consideration of the patient's comorbidities, presenting symptoms, or acuity I expect that the services needed warrant INPATIENT care.: Yes Medical Necessity: Need for IV Antibiotics - Plan Summary Plan Summary: 1.Scrotal cellulitis status post incision and drainage. Cultures are yielding methicillin-resistant Staphylococcus aureus. Continue Clindamycin. He can be changed to PO in another day or so. DC Plan is for Rehab 2. Chronic atrial fibrillation on Apixaban, Digoxin 3. 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 Cont Lasix, . 4. Type 2 diabetes mellitus currently on sliding scale insulin 5. Obesity with BMI of 36 weight loss encouraged 6. Stable coronary artery disease 7.
[2017-07-05] MEDS: IPRATROPIUM/ALBUTEROL 0.5-2.5 MG/3 ML AMPUL NEB PRN (14:37)
--- NOTE | 2017-07-05 19:48 | PDOC PROGRESS REPORT ---
Subjective Progress Note for:: 07/05/17 Subjective:: minimal pains Reason For Visit: SCROTAL CELLULITIS Physical Exam Vital Signs: Temp Pulse Resp BP Pulse Ox 97.3 F 61 22 H 144/55 H 95 07/05/17 15:43 07/05/17 15:43 07/05/17 15:43 07/05/17 15:43 07/05/17 15:43 Intake & Output 07/04/17 07/05/17 07/06/17 06:59 06:59 06:59 Intake Total 3410 1451 660 Output Total 1375 2325 750 Balance 5 -874 -90 Weight 115.8 kg 131.5 kg Exam: inflammation along right groin and scrotal area are improving. Packing along right scrotal I&D with no drainage. Packing change with wet todry Saline gauze Continue IV antibiotic Results Laboratory Results: 07/04/17 04:28 07/04/17 04:28 Impressions: Scrotum Ultrasound 06/29/17 00:29 IMPRESSION: 1. Large bilateral hydroceles. 2. Normal testes. No evidence of torsion. Abdomen/Pelvis CT 06/29/17 08:19 IMPRESSION: NO SIGNIFICANT OR ACUTE FINDING IN THE ABDOMEN OR PELVIS ON CT SCAN WITH IV CONTRAST. Chest X-Ray 06/29/17 16:28 IMPRESSION: NO ACUTE DISEASE.
[2017-07-05] MEDS: GUAIFENESIN 600 MG TABLET.SA PO SCH (22:31)
[2017-07-05] MEDS: NORMAL SALINE 1000 ML 1,000 ML IV PRN (22:43)
[2017-07-06] MEDS: CLINDAMYCIN 600 MG/D5W RTU 600 MG/50 ML RTUPB IV SCH ×3 (01:30→17:34)
[2017-07-06] MEDS: FUROSEMIDE 20 MG TABLET PO SCH (07:42)
--- NOTE | 2017-07-06 11:05 | RADIOLOGY REPORT (SQ) ---
EXAM DESCRIPTION: CHEST SINGLE VIEW COMPLETED DATE/TIME: 07/06/2017 10:28 am REASON FOR STUDY: possible fluid overload COMPARISON: 06/29/2017 EXAM PARAMETERS: NUMBER OF VIEWS: One view. TECHNIQUE: Single frontal radiographic view of the chest acquired. RADIATION DOSE: NA LIMITATIONS: None. FINDINGS: LUNGS AND PLEURA: No opacities, masses or pneumothorax. No pleural effusion. MEDIASTINUM AND HILAR STRUCTURES: No masses. Contour normal. HEART AND VASCULAR STRUCTURES: Stable cardiomegaly. BONES: No acute findings. HARDWARE: CABG. Pacemaker. OTHER: No other significant finding. IMPRESSION: NO ACUTE RADIOGRAPHIC FINDING IN THE CHEST. TECHNICAL DOCUMENTATION: JOB ID: [id number] [employer]- All Rights Reserved Reading location - IP/workstation name: [email or web address]
[2017-07-06] MEDS: SACUBITRIL/VALSARTAN 49 MG/51 MG TABLET PO SCH ×2 (11:12→22:07)
[2017-07-06] MEDS: APIXABAN 5 MG TABLET PO SCH ×2 (11:12→22:07)
[2017-07-06] MEDS: DOCUSATE SODIUM 100 MG CAPSULE PO SCH ×2 (11:12→17:34)
[2017-07-06] MEDS: DIGOXIN 0.125 MG TABLET PO SCH (11:13)
[2017-07-06] MEDS: METOPROLOL SUCCINATE 50 MG TAB.SR.24H PO SCH (11:15)
[2017-07-06] MEDS: CETIRIZINE 10 MG TABLET PO SCH (11:15)
[2017-07-06] MEDS: CLOPIDOGREL BISULFATE 75 MG TABLET PO SCH (11:15)
[2017-07-06] MEDS: GABAPENTIN 100 MG CAPSULE PO SCH ×2 (11:15→22:07)
[2017-07-06] MEDS: EZETIMIBE 10 MG TABLET PO SCH (11:16)
[2017-07-06 11:39] LABS: ANION GAP 8 (5-19); BLOOD UREA NITROGEN 11 mg/dL (7-20); CALCIUM 8.2 mg/dL (8.4-10.2); CARBON DIOXIDE 26 mmol/L (22-30); CHLORIDE 105 mmol/L (98-107); GLUCOSE 132 mg/dL (75-110); SODIUM 138.9 mmol/L (137-145)
[2017-07-06] MEDS: IPRATROPIUM/ALBUTEROL 0.5-2.5 MG/3 ML AMPUL NEB PRN (16:39)
[2017-07-06] MEDS ORDERED: FUROSEMIDE INJ/PF 20 MG/2 ML SDV IV ONE (17:00)
--- NOTE | 2017-07-06 19:10 | PDOC PROGRESS REPORT ---
Subjective Progress Note for:: 07/06/17 Subjective:: Patient is overall feeling better. He is still wheezing a little bit, has a little bit of shortness of breath. No chest pain. No cough or sputum right now. No new acute pain. No fever or chills. Reason For Visit: SCROTAL CELLULITIS Physical Exam Vital Signs: Temp Pulse Resp BP Pulse Ox 97.5 F 64 28 H 132/54 H 94 07/06/17 16:42 07/06/17 16:42 07/06/17 16:42 07/06/17 16:42 07/06/17 16:42 Intake & Output 07/05/17 07/06/17 07/07/17 06:59 06:59 06:59 Intake Total 1451 2004 Output Total 2325 1150 Balance -874 855 Weight 131.5 kg 131.5 kg General appearance: PRESENT: no acute distress, cooperative Head exam: PRESENT: atraumatic, normocephalic Eye exam: PRESENT: conjunctiva pink, EOMI. ABSENT: scleral icterus Mouth exam: PRESENT: moist, neck supple Respiratory exam: PRESENT: unlabored, wheezes. ABSENT: rales, rhonchi Cardiovascular exam: PRESENT: RRR Pulses: PRESENT: normal radial pulses GI/Abdominal exam: PRESENT: normal bowel sounds, soft. ABSENT: distended, tenderness Rectal exam: PRESENT: deferred Gentrourinary exam: PRESENT: scrotal swelling, other - Scrotal erythema, no pain Neurological exam: PRESENT: alert, awake, oriented to person, oriented to place , oriented to situation, CN II-XII grossly intact Skin exam: PRESENT: warm Results Laboratory Results: 07/04/17 04:28 07/06/17 10:58 07/06/17 10:58 Sodium 138.9 Potassium 4.0 Chloride 105 Carbon Dioxide 26 Anion Gap 8 BUN 11 Creatinine 0.77 Est GFR ( Amer) > 60 Est GFR (Non-Af Amer) > 60 Glucose 132 H Calcium 8.2 L Magnesium 2.1 Impressions: Scrotum Ultrasound 06/29/17 00:29 IMPRESSION: 1. Large bilateral hydroceles. 2. Normal testes. No evidence of torsion. Abdomen/Pelvis CT 06/29/17 08:19 IMPRESSION: NO SIGNIFICANT OR ACUTE FINDING IN THE ABDOMEN OR PELVIS ON CT SCAN WITH IV CONTRAST. Chest X-Ray 07/06/17 00:00 IMPRESSION: NO ACUTE RADIOGRAPHIC FINDING IN THE CHEST. Assessment & Plan - Diagnosis (1) Wheezing Is this a current diagnosis for this admission?: Yes Plan: She has heart failure and has been on IV fluids. I believe he might be volume overloaded. Trace rales at the bilateral bases auscultated. I have ordered Lasix 20 mg IV. He will also get a DuoNeb. Will follow and re-diuresis if indicated. IV fluids have been stopped. (2) Atrial fibrillation Qualifiers: Atrial fibrillation type: paroxysmal Qualified Code(s): I48.0 - Paroxysmal atrial fibrillation Is this a current diagnosis for this admission?: Yes Plan: Rate is controlled. His blood pressure has been dropping on the diltiazem. I will speak with him about possible transition over to beta-tulio so that we can have a little bit more blood pressure to work with. (3) CAD (coronary artery disease) Qualifiers: Coronary Disease-Associated Artery/Lesion type: unspecified vessel or lesion type [place] vs. transplanted heart: [place] heart Associated angina: angina presence unspecified Qualified Code(s): I25.10 - Atherosclerotic heart disease of [place] coronary artery without angina pectoris Is this a current diagnosis for this admission?: Yes Plan: Stable. No changes. (4) Cardiac pacemaker in situ Is this a current diagnosis for this admission?: Yes Plan: Site is without complication. (5) Cellulitis of scrotum Is this a current diagnosis for this admission?: Yes Plan: Patient is being followed by the surgeon. Continue clindamycin for MRSA infection. Continue wound care. 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 CBGs are relatively well controlled today. - Time Time Spent with patient: 25-34 minutes Medications reviewed and adjusted accordingly: Yes - Inpatient Certification Based on my medical assessment, after consideration of the patient's comorbidities, presenting symptoms, or acuity I expect that the services needed warrant INPATIENT care.: Yes I certify that my determination is in accordance with my understanding of Medicare's requirements for reasonable and necessary INPATIENT services [42 CFR 412.3e].: Yes Medical Necessity: Significant Comorbidiites Make Outpatient Treatment Too Risky , Need Close Monitoring Due to Risk of Patient Decompensation, Need for IV Antibiotics, Risk of Complication if Not Cared For in Hospital
[2017-07-06] MEDS: GUAIFENESIN 600 MG TABLET.SA PO SCH (22:07)
[2017-07-07] MEDS: CLINDAMYCIN 600 MG/D5W RTU 600 MG/50 ML RTUPB IV SCH ×2 (01:51→11:09)
[2017-07-07] MEDS: IPRATROPIUM/ALBUTEROL 0.5-2.5 MG/3 ML AMPUL NEB PRN (07:41)
[2017-07-07] MEDS: FUROSEMIDE 20 MG TABLET PO SCH (08:21)
[2017-07-07] MEDS: SACUBITRIL/VALSARTAN 49 MG/51 MG TABLET PO SCH ×2 (11:05→22:41)
[2017-07-07] MEDS: GABAPENTIN 100 MG CAPSULE PO SCH ×2 (11:06→22:40)
[2017-07-07] MEDS: DOCUSATE SODIUM 100 MG CAPSULE PO SCH ×2 (11:07→17:40)
[2017-07-07] MEDS: CETIRIZINE 10 MG TABLET PO SCH (11:08)
[2017-07-07] MEDS: EZETIMIBE 10 MG TABLET PO SCH (11:08)
[2017-07-07] MEDS: CLOPIDOGREL BISULFATE 75 MG TABLET PO SCH (11:08)
[2017-07-07] MEDS: METOPROLOL SUCCINATE 50 MG TAB.SR.24H PO SCH (11:08)
[2017-07-07] MEDS: APIXABAN 5 MG TABLET PO SCH ×2 (11:08→22:40)
[2017-07-07] MEDS: DIGOXIN 0.125 MG TABLET PO SCH (11:10)
--- NOTE | 2017-07-07 14:52 | PDOC PROGRESS REPORT ---
Subjective Progress Note for:: 07/07/17 Subjective:: no pains right scrotal area Reason For Visit: SCROTAL CELLULITIS Physical Exam Vital Signs: Temp Pulse Resp BP Pulse Ox 98.6 F 59 L 22 H 133/59 H 96 07/07/17 13:00 07/07/17 13:00 07/07/17 08:23 07/07/17 13:00 07/07/17 13:00 Intake & Output 07/06/17 07/07/17 07/08/17 06:59 06:59 06:59 Intake Total 2004 1741 Output Total 1150 1325 Balance 855 417 Weight 131.5 kg 130 kg Exam: cellulitis right scrotal area much less inflamed. Results Laboratory Results: 07/04/17 04:28 07/06/17 10:58 Impressions: Scrotum Ultrasound 06/29/17 00:29 IMPRESSION: 1. Large bilateral hydroceles. 2. Normal testes. No evidence of torsion. Abdomen/Pelvis CT 06/29/17 08:19 IMPRESSION: NO SIGNIFICANT OR ACUTE FINDING IN THE ABDOMEN OR PELVIS ON CT SCAN WITH IV CONTRAST. Chest X-Ray 07/06/17 00:00 IMPRESSION: NO ACUTE RADIOGRAPHIC FINDING IN THE CHEST. Assessment & Plan - Time Time Spent with patient: 15-24 minutes - Plan Summary Plan Summary: Continue IV antibiotics 24-48 hrs then po antibiotics. Follow up at the wound care center in 2 weeks
--- NOTE | 2017-07-07 15:06 | PDOC PROGRESS REPORT ---
Subjective Progress Note for:: 07/07/17 Subjective:: Patient thinks he is getting very close to his baseline. His strength is pretty good. He is eating and drinking well. No new pain. His groin is feeling better and is less swollen. Is breathing a lot better than he was yesterday. No new chest pain. Reason For Visit: SCROTAL CELLULITIS Physical Exam Vital Signs: Temp Pulse Resp BP Pulse Ox 98.6 F 59 L 22 H 133/59 H 96 07/07/17 13:00 07/07/17 13:00 07/07/17 08:23 07/07/17 13:00 07/07/17 13:00 Intake & Output 07/06/17 07/07/17 07/08/17 06:59 06:59 06:59 Intake Total 2004 1742 Output Total 1150 1325 Balance 855 417 Weight 131.5 kg 130 kg General appearance: PRESENT: no acute distress, obese Head exam: PRESENT: atraumatic, normocephalic Eye exam: PRESENT: conjunctiva pink. ABSENT: scleral icterus Ear exam: PRESENT: normal external ear exam Mouth exam: PRESENT: moist Neck exam: ABSENT: lymphadenopathy Respiratory exam: PRESENT: clear to auscultation barbie, unlabored. ABSENT: rales , rhonchi, wheezes Cardiovascular exam: PRESENT: RRR. ABSENT: systolic murmur Pulses: PRESENT: normal radial pulses GI/Abdominal exam: PRESENT: normal bowel sounds, soft. ABSENT: distended, firm , tenderness Rectal exam: PRESENT: deferred Gentrourinary exam: PRESENT: erythema, lesions, scrotal swelling. ABSENT: urethral discharge Extremities exam: ABSENT: pedal edema Musculoskeletal exam: PRESENT: ambulatory Neurological exam: PRESENT: alert, awake, oriented to person, oriented to place , oriented to situation, CN II-XII grossly intact Psychiatric exam: PRESENT: appropriate affect. ABSENT: anxious Skin exam: PRESENT: other - Scrotum edema improving, cellulitis improving. In the groin bilaterally patient has deep erythema and some whitish fluid which likely represents a yeast infection. Results Laboratory Results: 07/04/17 04:28 07/06/17 10:58 Impressions: Scrotum Ultrasound 06/29/17 00:29 IMPRESSION: 1. Large bilateral hydroceles. 2. Normal testes. No evidence of torsion. Abdomen/Pelvis CT 06/29/17 08:19 IMPRESSION: NO SIGNIFICANT OR ACUTE FINDING IN THE ABDOMEN OR PELVIS ON CT SCAN WITH IV CONTRAST. Chest X-Ray 07/06/17 00:00 IMPRESSION: NO ACUTE RADIOGRAPHIC FINDING IN THE CHEST. Assessment & Plan - Diagnosis (1) Wheezing Is this a current diagnosis for this admission?: Yes Plan: Probably related to volume overload. Fluids have been discontinued. Patient got Lasix 20 mg IV 1 and he thinks his breathing is back to normal today. (2) Atrial fibrillation Qualifiers: Atrial fibrillation type: paroxysmal Qualified Code(s): I48.0 - Paroxysmal atrial fibrillation Is this a current diagnosis for this admission?: Yes Plan: Rate controlled. No medication changes to be made today. Patient is on apixaban for anticoagulation. (3) CAD (coronary artery disease) Qualifiers: Coronary Disease-Associated Artery/Lesion type: unspecified vessel or lesion type [place] vs. transplanted heart: [place] heart Associated angina: angina presence unspecified Qualified Code(s): I25.10 - Atherosclerotic heart disease of [place] coronary artery without angina pectoris Is this a current diagnosis for this admission?: Yes Plan: Stable. Patient will continue on his cardiac meds including Plavix, metoprolol , digoxin, Zetia. (4) Cardiac pacemaker in situ Is this a current diagnosis for this admission?: Yes Plan: Stable. (5) Cellulitis of scrotum Is this a current diagnosis for this admission?: Yes Plan: Patient had a fluid collection and microbiology shows MRSA, community-acquired, sensitive to clindamycin. He has been on clindamycin IV during this hospitalization. I will switch him to oral clindamycin 450 mg p.o. every 8 hours. The surgeon recommends another week of clindamycin and follow-up in the surgical clinic within the next few days. (6) Congestive heart failure (CHF) Qualifiers: Heart failure type: combined systolic and diastolic Heart failure chronicity: chronic Qualified Code(s): I50.42 - Chronic combined systolic ( congestive) and diastolic (congestive) heart failure Is this a current diagnosis for this admission?: Yes Plan: Stable. Continue cardiac meds including daily Lasix. Continue fluid and salt restriction and daily weights. (7) Diabetes Qualifiers: Diabetes mellitus type: type 2 Diabetes mellitus long-term insulin use: without long-term use Diabetes mellitus complication status: with unspecified complications Qualified Code(s): E11.8 - Type 2 diabetes mellitus with unspecified complications Is this a current diagnosis for this admission?: Yes Plan: Patient is on glimepiride at home. Continue short acting bolus insulin while here. CBGs relatively well controlled. - Time Time Spent with patient: 25-34 minutes Anticipated discharge: Home - Inpatient Certification Based on my medical assessment, after consideration of the patient's comorbidities, presenting symptoms, or acuity I expect that the services needed warrant INPATIENT care.: Yes I certify that my determination is in accordance with my understanding of Medicare's requirements for reasonable and necessary INPATIENT services [42 CFR 412.3e].: Yes Medical Necessity: Need Close Monitoring Due to Risk of Patient Decompensation, Risk of Complication if Not Cared For in Hospital
[2017-07-07] MEDS: NYSTATIN CREAM 15 GM TP SCH (17:40)
[2017-07-07] MEDS: CLINDAMYCIN HCL 150 MG CAPSULE PO SCH (22:40)
[2017-07-07] MEDS: GUAIFENESIN 600 MG TABLET.SA PO SCH (22:40)
[2017-07-08] MEDS: CLINDAMYCIN HCL 150 MG CAPSULE PO SCH ×3 (06:18→15:53)
[2017-07-08 06:46] LABS: HEMATOCRIT 35.8 % (37.9-51.0); MEAN CORPUSCULAR HEMOGLOBIN 32.7 pg (27.0-33.4); MEAN CORPUSCULAR HGB CONC 33.4 g/dL (32.0-36.0); MEAN CORPUSCULAR VOLUME 98 fl (80-97); PLATELET COUNT 159 10^3/uL (150-450); RED BLOOD COUNT 3.65 10^6/uL (4.35-5.55); RED CELL DISTRIBUTION WIDTH 14.2 % (11.5-14.0); WHITE BLOOD COUNT 9.8 10^3/uL (4.0-10.5)
[2017-07-08 07:17] LABS: ANION GAP 8 (5-19); BLOOD UREA NITROGEN 14 mg/dL (7-20); CALCIUM 8.9 mg/dL (8.4-10.2); CARBON DIOXIDE 28 mmol/L (22-30); CHLORIDE 105 mmol/L (98-107); GLUCOSE 127 mg/dL (75-110); POTASSIUM 4.3 mmol/L (3.6-5.0); SODIUM 141.3 mmol/L (137-145)
[2017-07-08] MEDS: FUROSEMIDE 20 MG TABLET PO SCH (08:58)
[2017-07-08] MEDS: APIXABAN 5 MG TABLET PO SCH (11:03)
[2017-07-08] MEDS: DIGOXIN 0.125 MG TABLET PO SCH (11:03)
[2017-07-08] MEDS: CLOPIDOGREL BISULFATE 75 MG TABLET PO SCH (11:03)
[2017-07-08] MEDS: METOPROLOL SUCCINATE 50 MG TAB.SR.24H PO SCH (11:06)
[2017-07-08] MEDS: GABAPENTIN 100 MG CAPSULE PO SCH (11:06)
[2017-07-08] MEDS: EZETIMIBE 10 MG TABLET PO SCH (11:07)
[2017-07-08] MEDS: CETIRIZINE 10 MG TABLET PO SCH (11:07)
[2017-07-08] MEDS: DOCUSATE SODIUM 100 MG CAPSULE PO SCH (11:07)
[2017-07-08] MEDS: SACUBITRIL/VALSARTAN 49 MG/51 MG TABLET PO SCH (11:08)
[2017-07-08] MEDS: NYSTATIN CREAM 15 GM TP SCH (11:08)
[2017-07-08] MEDS ORDERED: FUROSEMIDE INJ/PF 20 MG/2 ML SDV IV ONE (12:30)
--- NOTE | 2017-07-08 13:45 | PDOC DISCHARGE SUMMARY ---
General - Admit/Disc Date/PCP Admission Date/Primary Care Provider: 06/29/17 02:22 ALEXANDER GORDON Discharge Date: 07/08/17 - Discharge Diagnosis (1) Cellulitis of scrotum Is this a current diagnosis for this admission?: Yes Summary: Patient little erythema, abscess was noted by consulting surgeons. Was taken to the operating room for iNcision and drainage of scrotal abscess, he also had intraoperative ultrasound of the scrotum. Postoperatively the patient was on clindamycin and had wound checks and wound care with the surgical service. He has done well. Cellulitis is much improved. He will be discharged on oral clindamycin for another week per surgery recommendations. He will follow-up in the surgical clinic within the next 2 weeks. He will be discharged to home with home health for dressing changes until his family is able to do that on their own, this may or may not be possible. (2) Atrial fibrillation Is this a current diagnosis for this admission?: Yes Summary: Heart rate stable. We will continue his home medications including apixaban for anticoagulation. (3) CAD (coronary artery disease) Is this a current diagnosis for this admission?: Yes Summary: Patient has been stable from this perspective. He will continue with his home medications upon discharge and he is advised to see his silver service waiter for close follow-up. (4) Cardiac pacemaker in situ Is this a current diagnosis for this admission?: Yes (5) Congestive heart failure (CHF) Is this a current diagnosis for this admission?: Yes Summary: Patient was fluid hydrated related to his infection. He had a little bit of volume overload. He received several doses of IV Lasix. The fluid overload caused some wheezing. The patient is now appropriately diuresed and is discharged home on his home dose of Lasix. He knows to return to medical care with any concerning symptoms related to his heart failure including wheezing, difficulty breathing, weight gain. (6) Diabetes Is this a current diagnosis for this admission?: Yes Summary: Patient will be discharged home on his regular diabetic regimen. - Additional Information Resuscitation Status: Full Code Discharge Diet: Cardiac, Diabetic, Other (Comments) - fluid restriction for hear failure per your silver service waiter Discharge Activity: Balance Activity w/Rest Prescriptions: Clindamycin HCl [Cleocin 150 mg Capsule] 450 mg PO Q8 6 Days #16 capsule Home Medications: Alirocumab [Praluent Pen] 150 mg PO [id number] 06/29/17 Apixaban [Eliquis 5 mg Tablet] 5 mg PO BID 06/29/17 Clopidogrel Bisulfate [Clopidogrel] 75 mg PO DAILY 06/29/17 Digoxin [Lanoxin 0.125 mg Tablet] 0.0625 mg PO DAILY 06/29/17 Ezetimibe [Zetia 10 mg Tablet] 10 mg PO DAILY 06/29/17 Furosemide [Lasix 40 mg Tablet] 60 mg PO QAM 06/29/17 Gabapentin [Neurontin 100 mg Capsule] 100 mg PO Q12 06/29/17 Glimepiride [Amaryl 1 mg Tablet] 1 mg PO DAILY 06/29/17 Metoprolol Succinate [Toprol XL 100 mg Tablet] 100 mg PO DAILY 06/29/17 Nitroglycerin [Nitro-Dur 5 mg (0.2 mg/Hr) Transdermal Patch] 1 patch TD DAILY 06/29/17 Sacubitril/Valsartan [Entresto 49 mg-51 mg Tablet] 1 tab PO Q12 06/29/17 Clindamycin HCl [Cleocin 150 mg Capsule] 450 mg PO Q8 6 Days #16 capsule Nystatin [Mycostatin Cream 15 gm] 1 applic TP BID #0 tube 07/08/17 History of Present Illness History of Present Illness: ARNEL DENG is a 81 year old male Hospital Course Hospital Course: ARNEL DENG is a 81 year old male with a past medical history of diabetes, congestive heart failure, atrial fibrillation status post pacemaker placement and on Eliquis. Patient presents with 3 days of scrotal swelling and pain associated with fever. Denying change in urination or medications. In the emergency room is found to have bilateral hydrocele but negative for torsion. He started on empiric antibiotics and for the hospitalist for admission. Patient denies previous episode or recent antibiotic use. He otherwise feels well. He had both urology and surgical consults placed. Physical Exam Vital Signs: Temp Pulse Resp BP Pulse Ox 98.0 F 60 20 139/58 H 95 07/08/17 08:38 07/08/17 08:38 07/08/17 08:38 07/08/17 08:38 07/08/17 08:38 Intake & Output 07/07/17 07/08/17 07/09/17 06:59 06:59 06:59 Intake Total 3529 1255 354 Output Total 132 1505 Balance 417 -250 354 Weight 130 kg 130 kg General appearance: PRESENT: no acute distress, cooperative, obese Head exam: PRESENT: atraumatic, normocephalic Eye exam: PRESENT: conjunctiva pink, EOMI. ABSENT: scleral icterus Mouth exam: PRESENT: moist, neck supple Respiratory exam: PRESENT: decreased breath sounds, rales, unlabored. ABSENT: rhonchi, wheezes Cardiovascular exam: PRESENT: irregular rhythm. ABSENT: systolic murmur, tachycardia Pulses: PRESENT: normal radial pulses GI/Abdominal exam: PRESENT: normal bowel sounds, soft. ABSENT: distended, firm , guarding, tenderness Rectal exam: PRESENT: deferred Gentrourinary exam: PRESENT: scrotal swelling, other - Bilateral groin erythema which is improving daily, evidence of fungal infection in the groin as well. Musculoskeletal exam: PRESENT: normal inspection. ABSENT: tenderness Neurological exam: PRESENT: alert, awake, oriented to person, oriented to place , oriented to situation, CN II-XII grossly intact Psychiatric exam: PRESENT: appropriate affect. ABSENT: anxious Skin exam: PRESENT: intact, warm Results Laboratory Results: 07/08/17 06:28 07/08/17 06:28 07/08/17 07/08/17 06:28 06:28 WBC 9.8 RBC 3.65 L Hgb 12.0 L Hct 35.8 L MCV 98 H MCH 32.7 MCHC 33.4 RDW 14.2 H Plt Count 159 Sodium 141.3 Potassium 4.3 Chloride 105 Carbon Dioxide 28 Anion Gap 8 BUN 14 Creatinine 0.95 Est GFR ( Amer) > 60 Est GFR (Non-Af Amer) > 60 Glucose 127 H Calcium 8.9 Impressions: Scrotum Ultrasound 06/29/17 00:29 IMPRESSION: 1. Large bilateral hydroceles. 2. Normal testes. No evidence of torsion. Abdomen/Pelvis CT 06/29/17 08:19 IMPRESSION: NO SIGNIFICANT OR ACUTE FINDING IN THE ABDOMEN OR PELVIS ON CT SCAN WITH IV CONTRAST. Chest X-Ray 07/06/17 00:00 IMPRESSION: NO ACUTE RADIOGRAPHIC FINDING IN THE CHEST. Qualifiers - * PATEINT BEING DISCHARGED WITH ANY OF THE FOLLOWING DIAGNOSIS?: Heart Failure HF Pt being discharged on ACEI for LVEF less than 40%?: No Reason(s) for not prescribing ACEI:: Not indicated HF Pt being discharged on ARBS for LVEF less than 40%?: No Reason(s) for not prescribing ARBS:: Not indicated HF Pt with Afib discharged with Warfarin?: Yes HF Pt discharged on evidence-based Beta [place]:: Yes
[2017-07-08 16:36] VITALS: BP 114/51
--- NOTE | 2017-07-08 19:43 | PDOC PROGRESS REPORT ---
Subjective Progress Note for:: 07/02/17 Subjective:: Postop day 1. Doing reasonably well. Patient seems to be doing stable. Pt is denying any chest arm or neck discomfort. Patient denying any PND, orthopnea. Patient denied any sustained palpitations, dizziness, syncope, near syncope. Patient denying any fever chills. Patient denying any other significant discomfort. Patient is chronic atrial fibrillation with ventricular paced beats, frequent APCs and VPCs noted. Patient was cleared for surgery. Review of systems: Rest review of systems negative. Medications: Medications have been reviewed. Reason For Visit: SCROTAL CELLULITIS Physical Exam Vital Signs: Temp Pulse Resp BP Pulse Ox 98.5 F 77 20 119/93 H 96 07/02/17 15:00 07/02/17 15:00 07/02/17 15:00 07/02/17 15:00 07/02/17 15:00 Intake & Output 07/01/17 07/02/17 07/03/17 06:59 06:59 06:59 Intake Total 6750 3145 2036 Output Total 2650 1100 975 Balance 4100 2045 1061 Weight 113 kg 113 kg Exam: GENERAL: well-nourished and in no acute distress. Alert and oriented x3 HEAD: Atraumatic, normocephalic. EYES: Pupils equal round and reactive to light, extraocular movements intact, sclera anicteric, conjunctiva are normal. ENT: TMs normal, nares patent, oropharynx clear without exudates. Moist mucous membranes. No oral ulcerations or bleeding gums noted NECK: supple without lymphadenopathy. Trachea is central. No cervical or axillary lymphadenopathy noted. Carotids are 2+, JVD WNL LUNGS: Respiration seems nonlabored, no significant accessory muscle action noted. Breath sounds clear to auscultation bilaterally and equal noted. No wheezes rales or rhonchi noted. No significant dullness noted on percussion. CHEST: Palpation of the chest wall shows no significant chest wall tenderness. No other significant abnormalities noted. HEART: [place] [employer], No PSH, 1/6 KIRBY aortic area, 1/6 mena systolic murmur mitral area, no rubs, no gallops. ABDOMEN: Soft, no significant tenderness appreciated, normoactive bowel sounds. No guarding, no rebound. No rigidity noted . No masses appreciated. Scrotal wound is bandaged. Patient is status post surgery with incision and drainage. EXTREMITIES: Pedal pulses are 1-2+, no calf tenderness noted. No clubbing or cyanosis. 1-2+, chronic pedal edema noted NEUROLOGICAL: Focused neurological exam showed no significant neurologic deficit. Normal speech, no focal weakness appreciated. PSYCH: Normal mood, normal affect. Judgment and insight within normal limits. SKIN: No significant ecchymosis, skin is noted to be warm. MUSCULOSKELETAL EXAM: No significant acute joint swelling noted. Results Laboratory Results: 07/01/17 04:20 07/01/17 09:47 Impressions: Scrotum Ultrasound 06/29/17 00:29 IMPRESSION: 1. Large bilateral hydroceles. 2. Normal testes. No evidence of torsion. Abdomen/Pelvis CT 06/29/17 08:19 IMPRESSION: NO SIGNIFICANT OR ACUTE FINDING IN THE ABDOMEN OR PELVIS ON CT SCAN WITH IV CONTRAST. Chest X-Ray 06/29/17 16:28 IMPRESSION: NO ACUTE DISEASE. Assessment & Plan - Diagnosis (1) Preoperative cardiovascular examination Is this a current diagnosis for this admission?: Yes (2) Cardiac pacemaker in situ Is this a current diagnosis for this admission?: Yes (3) Atrial fibrillation Qualifiers: Atrial fibrillation type: paroxysmal Qualified Code(s): I48.0 - Paroxysmal atrial fibrillation Is this a current diagnosis for this admission?: Yes (4) Cellulitis of scrotum Is this a current diagnosis for this admission?: Yes (5) Congestive heart failure (CHF) Qualifiers: Heart failure type: combined systolic and diastolic Heart failure chronicity: chronic Qualified Code(s): I50.42 - Chronic combined systolic ( congestive) and diastolic (congestive) heart failure Is this a current diagnosis for this admission?: Yes (6) Diabetes Qualifiers: Diabetes mellitus type: type 2 Diabetes mellitus long-term insulin use: without long-term use Diabetes mellitus complication status: with unspecified complications Qualified Code(s): E11.8 - Type 2 diabetes mellitus with unspecified complications Is this a current diagnosis for this admission?: Yes (7) Obesity (BMI 30-39.9) Is this a current diagnosis for this admission?: Yes (8) CAD (coronary artery disease) Qualifiers: Coronary Disease-Associated Artery/Lesion type: unspecified vessel or lesion type [place] vs. transplanted heart: [place] heart Associated angina: angina presence unspecified Qualified Code(s): I25.10 - Atherosclerotic heart disease of [place] coronary artery without angina pectoris Is this a current diagnosis for this admission?: Yes - Notes Notes: Postop day 2 currently is stable. EKG shows intermittent ventricular paced rhythm. No acute ST-T wave changes noted. Will sign off. Please reconsult if needed. Patient given my card. He can follow-up with me if he wishes. Cardiac pacemaker: Telemetry strips review shows normal functioning so far. Atrial fibrillation: Chronic, Resume chronic anticoagulation as soon as feasible. Congestive heart failure: Seems compensated by my exam. Patient does have some chronic pedal edema and chronic shortness of breath. On the abdominal CT, lung bases were available for review and did not show any evidence of congestion. Diabetes: Recommend good control. Avoid any hyper or hypoglycemia. Obesity: Currently stable. Patient will benefit from weight loss on a long- term basis. 2D echo was reviewed. Showed mildly depressed LVEF. No significant stenotic valve disease noted. Echo results were discussed today again. - Time Time with patient: 15-25 minutes - More than 50% of the time spent coordinating care, discussing management plans with involved caregivers. Management plans discussed with involved personnels. Medical decision making was of moderate to high complexity, patient's has multiple comorbidities. Medications reviewed and adjusted accordingly: Yes
== END 2017-07-08 15:56 | disposition home health service (06) | DRG 728 ==
LOC: ER 23:05 → EH 06-29 02:22 → 5 06-29 10:28
PROVIDERS: ADMIT Internal Medicine; ATTEND Internal Medicine
PROC: 0V953ZX Drainage of Scrotum, Percutaneous Approach, Diagnostic (ICD-10-PCS; 2017-06-30)
PROC: 0VB Male Reproductive System, Excision (ICD-10-PCS; principal; 2017-06-30 08:00)
PROC: 3E0F73Z Introduction of Anti-inflammatory into Respiratory Tract, Via Natural or Artificial Opening (ICD-10-PCS; 2017-07-05)
DX: N49.2 Inflammatory disorders of scrotum (principal); E87.1 Hypo-osmolality and hyponatremia; I50.42 Chronic combined systolic (congestive) and diastolic (congestive) heart failure; Z68.41 Body mass index [BMI] 40.0-44.9, adult; I48.0 Paroxysmal atrial fibrillation; I25.10 Atherosclerotic heart disease of native coronary artery without angina pectoris; E66.9 Obesity, unspecified; N43.3 Hydrocele, unspecified; E78.00 Pure hypercholesterolemia, unspecified; I11.0 Hypertensive heart disease with heart failure; E11.8 Type 2 diabetes mellitus with unspecified complications; E80.6 Other disorders of bilirubin metabolism; I25.2 Old myocardial infarction; Z95.0 Presence of cardiac pacemaker; Z79.899 Other long term (current) drug therapy; Z90.49 Acquired absence of other specified parts of digestive tract; Z95.1 Presence of aortocoronary bypass graft; Z87.891 Personal history of nicotine dependence; Z88.6 Allergy status to analgesic agent; Z79.02 Long term (current) use of antithrombotics/antiplatelets; Z82.49 Family history of ischemic heart disease and other diseases of the circulatory system
CPT/HCPCS: 00920; 36415; 71045; 74177; 76870; 80048; 80053; 80076; 80162; 80202; 81001; 82565; 82803; 82962; 83036; 83605; 83735; 85025; 85027; 85576; 85610; 85730; 87040; 87070; 87075; 87077; 87086; 87186; 87205; 93005; 93010; 93306; 93976; 94640; 96365; 99285; A6266; G8978-GP; G8979-GP; J1644; J1815; J1940; J1956; J2185; J2250; J2405; J2704; J3010; J3370; J3490; J7030; J7060; J7620

== ENCOUNTER 2017-07-11 12:54 | Emergency (ER) | payer MEDICARE, OTHER ==
[2017-07-11 13:36] LABS: ABSOLUTE BASOPHILS # (AUTO) 0.1 10^3/uL (0.0-0.2); ABSOLUTE EOSINOPHILS # (AUTO) 0.2 10^3/uL (0.0-0.6); ABSOLUTE LYMPHOCYTES (AUTO) 1.6 10^3/uL (0.5-4.7); ABSOLUTE MONOCYTES (AUTO) 0.8 10^3/uL (0.1-1.4); BASOPHILS % (AUTO) 0.5 % (0-2); EOSINOPHILS % (AUTO) 2.3 % (0-6); HEMATOCRIT 35.6 % (37.9-51.0); HEMOGLOBIN 12.2 g/dL (13.5-17.0); LYMPHOCYTES % (AUTO) 15.3 % (13-45); MEAN CORPUSCULAR HEMOGLOBIN 32.9 pg (27.0-33.4); MEAN CORPUSCULAR HGB CONC 34.2 g/dL (32.0-36.0); MEAN CORPUSCULAR VOLUME 96 fl (80-97); MONOCYTES % (AUTO) 7.5 % (3-13); PLATELET COUNT 190 10^3/uL (150-450); RED BLOOD COUNT 3.71 10^6/uL (4.35-5.55); RED CELL DISTRIBUTION WIDTH 14.6 % (11.5-14.0); SEGMENTED NEUTROPHILS % (AUTO) 74.4 % (42-78); TOTAL CELLS COUNTED % (AUTO) 100 %; WHITE BLOOD COUNT 10.8 10^3/uL (4.0-10.5)
[2017-07-11 13:52] LABS: ALANINE AMINOTRANSFERASE 27 U/L (21-72); ALBUMIN 3.6 g/dL (3.5-5.0); ALKALINE PHOSPHATASE 67 U/L (38-126); ANION GAP 10 (5-19); ASPARTATE AMINO TRANSFERASE 20 U/L (17-59); BILIRUBIN,DIRECT 0.2 mg/dL (0.0-0.4); BILIRUBIN,TOTAL 1.7 mg/dL (0.2-1.3); BLOOD UREA NITROGEN 15 mg/dL (7-20); CALCIUM 9.2 mg/dL (8.4-10.2); CARBON DIOXIDE 28 mmol/L (22-30); CHLORIDE 106 mmol/L (98-107); CREATINE KINASE 44 U/L (55-170); GLUCOSE 116 mg/dL (75-110); POTASSIUM 4.2 mmol/L (3.6-5.0); SODIUM 144.1 mmol/L (137-145); TOTAL PROTEIN 6.5 g/dL (6.3-8.2)
[2017-07-11 14:04] LABS: CREATINE KINASE MB 1.34 ng/mL (<4.55)
--- NOTE | 2017-07-11 14:04 | EKG REPORT ---
SEVERITY:- ABNORMAL ECG - VENTRICULAR-PACED COMPLEXES : Confirmed by: Jose Moreno MD 11-Jul-2017 14:03:17
[2017-07-11 14:05] LABS: TROPONIN I < 0.012 ng/mL
--- NOTE | 2017-07-11 14:21 | RADIOLOGY REPORT (SQ) ---
EXAM DESCRIPTION: CHEST SINGLE VIEW COMPLETED DATE/TIME: 07/11/2017 1:59 pm REASON FOR STUDY: bed 10 sob COMPARISON: 07/06/2017. NUMBER OF VIEWS: One view. TECHNIQUE: Single frontal radiographic view of the chest acquired. LIMITATIONS: None. FINDINGS: LUNGS AND PLEURA: No opacities, masses or pneumothorax. No pleural effusion. MEDIASTINUM AND HILAR STRUCTURES: No masses. Contour normal. HEART AND VASCULAR STRUCTURES: Heart enlarged without failure. Normal vasculature. BONES: No acute findings. HARDWARE: Pacemaker. Sternotomy wires. OTHER: No other significant finding. IMPRESSION: HEART ENLARGED WITHOUT FAILURE. NO OTHER SIGNIFICANT RADIOGRAPHIC FINDING IN THE CHEST. TECHNICAL DOCUMENTATION: JOB ID: [id number] [email or web address]- All Rights Reserved Reading location - IP/workstation name: [email or web address]
[2017-07-11 14:36] LABS: APPEARANCE,URINE CLEAR; BILIRUBIN,URINE NEGATIVE (NEGATIVE); COLOR,URINE YELLOW; GLUCOSE, URINE NEGATIVE (NEGATIVE); KETONES,URINE NEGATIVE (NEGATIVE); LEUKOCYTE ESTERASE,URINE TRACE (NEGATIVE); NITRITE,URINE NEGATIVE (NEGATIVE); PROTEIN,URINE NEGATIVE (NEGATIVE); URINE SPECIFIC GRAVITY 1.012
--- NOTE | 2017-07-11 16:02 | ER Document Report ---
ED General - General Chief Complaint: Shortness Of Breath Stated Complaint: SHORTNESS OF BREATH Time Seen by Provider: 07/11/17 13:36 Notes: Patient is here to be evaluated for shortness of breath. Patient was in this hospital for almost 2 weeks and discharged Saturday after having been treated for gangrene of the right scrotum with surgical incision and drainage. He was discharged home on oral antibiotic pills. He has his scrotal incision that requires daily bandage change and packing. His [id number] has been performing this task. Today, she felt as if he was wheezing more and had more labored respirations and called home health who advised that he be evaluated here in the emergency department. Patient says that he does not have home oxygen. Patient has had a cough which is very minimally productive of white phlegm. He does not have a history of any lung disease such as COPD. He stopped smoking in 1965. Does not think he has had any fever. Had bypass surgery in 2006. TRAVEL OUTSIDE OF THE [place] IN LAST 30 DAYS: No - Related Data Allergies/Adverse Reactions: acetaminophen [Acetaminophen] Allergy (Verified 11/17/11 12:46) aspirin [Aspirin] Allergy (Verified 11/17/11 12:46) Past Medical History - Social History Smoking Status: Never Smoker Family History: Reviewed & Not Pertinent, Hypertension Patient has suicidal ideation: No Patient has homicidal ideation: No - Past Medical History Cardiac Medical History: Reports: Hx Atrial Fibrillation, Hx Congestive Heart Failure, Hx Heart Attack - "silent", Hx Hypercholesterolemia, Hx Hypertension, Other - Has a pacemaker. Pulmonary Medical History: Denies: Hx Asthma, Hx COPD Endocrine Medical History: Reports: Hx Diabetes Mellitus Type 2 Past Surgical History: Reports: Hx Cardiac Surgery - triple bypass, pacemaker, Hx Cholecystectomy, Hx Coronary Artery Bypass Graft, Hx Pacemaker - Immunizations Hx Diphtheria, Pertussis, Tetanus Vaccination: No Review of Systems - Review of Systems Notes: REVIEW OF SYSTEMS: CONSTITUTIONAL : Denies fever. EENT: Denies eye, ear, nose or mouth or throat pain or other symptoms. CARDIOVASCULAR: Denies chest pain. RESPIRATORY: Denies cough, chest congestion, or shortness of breath. GASTROINTESTINAL: Denies abdominal pain or nausea, vomiting, or diarrhea. GENITOURINARY: Denies difficulty or painful urinating, urinary frequency, blood in urine. Right scrotal incision for abscess. MUSCULOSKELETAL: Denies back or neck pain. Denies joint pain or swelling. SKIN: Denies rash or skin lesions. Patient does have his postsurgical site with the healing residual incision of the anterior right scrotum. NEUROLOGICAL: Denies LOC or altered mental status. Denies headache. Denies sensory loss or motor deficits. ALL OTHER SYSTEMS REVIEWED AND NEGATIVE. Physical Exam - Vital signs Vitals: Pulse Ox 95 07/11/17 12:57 Interpretation: Normal, Hypoxic - Patient's O2 sat is staying about in the mid 90s, 94-95, but while sleeping, patient will occasionally drop his O2 sat into the 88-90 area - Notes Notes: PHYSICAL EXAMINATION: GENERAL: Well-appearing, in no acute distress. Appears comfortable with some O2 on at 2 L. HEAD: Atraumatic, normocephalic.ct. ENT: oropharynx clear without exudates. Moist mucous membranes. NECK: Normal range of motion, supple. LUNGS: Except for a very few scattered rhonchi and wheezes bilaterally, breath sounds clear and equal bilaterally. HEART: Irregular rate and rhythm without murmurs. ABDOMEN: Soft, nontender. No guarding or rebound. No masses. Genital exam: Patient has a healing incision of the anterior right scrotum where he had an abscess incised and drained. No evidence of active infection at this time. No fluctuance. No erythema. Only draining clear serous fluid. No increased warmth or erythema, etc. BACK: No tenderness throughout entire back. EXTREMITIES: Normal range of motion without pain. +2 pitting edema pretibially bilateral. [id number] says that is chronic. NEUROLOGICAL: Normal speech, very knowledgeable of his healthcare. Normal sensory, motor, and reflex exams. Awake, alert, and oriented x3. Cranial nerves normal. PSYCH: Normal mood, normal affect. SKIN: Warm, dry, no rashes. Course - Re-evaluation Re-evalutation: 07/11/17 16:04 Patient was stable and comfortable throughout her stay in the department. Evaluation including a normal urinalysis, essentially normal chest x-ray, only showing cardiomegaly but no failure and no pneumonia, CBC with a white count of 10,800 but otherwise unremarkable. Chemistries were all essentially normal with exception of his BNP which is 5090. Evaluation of the patient's scrotum reveals a healing incision with only minimal serous drainage of the right anterior scrotal. No fluctuance or evidence of abscess. No erythema, or heat, or drainage of pus, etc. 07/11/17 19:25 Just prior to patient's discharge, he was comfortably resting on his stretcher, even sleeping, and maintaining an O2 sat of 95% on room air. - Vital Signs Vital signs: Temp Pulse Resp BP Pulse Ox 97.6 F 22 H 137/67 H 95 07/11/17 17:20 07/11/17 17:01 07/11/17 17:01 07/11/17 17:01 - Laboratory Result Diagrams: 07/11/17 13:22 07/11/17 13:22 Laboratory results interpreted by me: 07/11/17 07/11/17 07/11/17 13:22 13:22 13:22 WBC 10.8 H RBC 3.71 L Hgb 12.2 L Hct 35.6 L RDW 14.6 H Glucose 116 H Total Bilirubin 1.7 H Creatine Kinase 44 L NT-Pro-B Natriuret Pep 5090 H Urine Urobilinogen Ur Leukocyte Esterase 07/11/17 14:18 WBC RBC Hgb Hct RDW Glucose Total Bilirubin Creatine Kinase NT-Pro-B Natriuret Pep Urine Urobilinogen 2.0 H Ur Leukocyte Esterase TRACE H - Diagnostic Test Radiology results interpreted by me: 07/11/17 16:07 Chest x-ray shows cardiomegaly but no heart failure and no infiltrates. No pneumonia seen. - EKG Interpretation by Me Rate: Normal - Ventricular paced rhythm Discharge - Discharge Clinical Impression: Dyspnea Condition: Stable Disposition: HOME, SELF-CARE Additional Instructions: SHORTNESS OF BREATH OR DYSPNEA: You were evaluated for shortness of breath, or dyspnea. Dyspnea has many causes, and some are more serious than others. Sometimes it's impossible to diagnose the cause of dyspnea with the tests that are available on an emergency basis. Based on our evaluation today, you do not need hospitalization now. We found no evidence of pneumonia, collapsed lung, blood clots in the lung, tumors , or heart failure. Causes of non-specific dyspnea can include asthma or bronchospasm, hyperventilation, emotional distress, heart disease, emphysema, fibrosis of the lung, and stiffness of the chest wall. In healthy individuals with a single episode, it's sometimes reasonable to do nothing but wait to see if the problem occurs again. Additional tests used to evaluate dyspnea can include cardiac stress testing, echocardiography, pulmonary function testing, CAT scan of the chest, bronchoscopy or pulmonary biopsy. Return if shortness of breath persists or worsens, or if you develop chest pain, fever, cough, confusion, or fainting. NORMAL EXAM AND WORKUP: At this time, your examination and workup show no significant acute abnormality. No significant abnormal physical findings were noted. All laboratory, EKG, and imaging (x-ray, CT scans, ultrasound) studies that were ordered show no significant abnormality. Although your examination and all studies that were ordered showed no significant abnormal finding, there are no examinations and no studies that are 100% accurate. There is always the possibility that some abnormality could exist and not be detected with physical examination or within the limits and capabilities of laboratory and other studies. You should return or follow up as you were instructed on your visit today for further evaluation if your symptoms do not resolve. FOLLOW-UP CARE: If you have been referred to a physician for follow-up care, call the physician s office for an appointment as you were instructed or within the next two days. If you experience worsening or a significant change in your symptoms, notify the physician immediately or return to the Emergency Department at any time for re-evaluation. Follow-up with your primary care provider in the next 2-3 days. Return for reevaluation at anytime if your symptoms worsen. Referrals: ALEXANDER GORDON MD [Primary Care Provider] - Follow up as needed
[2017-07-11 17:15] VITALS: BP 137/67
== END 2017-07-11 17:24 | disposition home or self-care (01) ==
LOC: ER 12:54
DX: R06.00 Dyspnea, unspecified (principal); Z98.890 Other specified postprocedural states; J44.9 Chronic obstructive pulmonary disease, unspecified
CPT/HCPCS: 93005; 99285; 36415; 82553; 82550; 85025; 80053; 81001; 84484; 83880; 71045; 93010; A6266

== ENCOUNTER → 2017-07-29 | Outpatient (CLI) | payer MEDICARE, OTHER ==
[2017-07-29 09:53] LABS: ANION GAP 11 (5-19); BLOOD UREA NITROGEN 19 mg/dL (7-20); CALCIUM 9.9 mg/dL (8.4-10.2); CARBON DIOXIDE 28 mmol/L (22-30); CHLORIDE 106 mmol/L (98-107); GLUCOSE 115 mg/dL (75-110); POTASSIUM 5.6 mmol/L (3.6-5.0); SODIUM 144.9 mmol/L (137-145)
[2017-07-30 11:17] LABS: ANION GAP 15 (5-19); BLOOD UREA NITROGEN 19 mg/dL (7-20); CALCIUM 9.5 mg/dL (8.4-10.2); CARBON DIOXIDE 24 mmol/L (22-30); CHLORIDE 102 mmol/L (98-107); GLUCOSE 162 mg/dL (75-110); POTASSIUM 4.4 mmol/L (3.6-5.0)
== END ==
LOC: OD 09:03
PROVIDERS: ATTEND Internal Medicine Cardiovascular Disease
DX: N18.3 Chronic kidney disease, stage 3 (moderate) (principal); I50.22 Chronic systolic (congestive) heart failure; R06.02 Shortness of breath
CPT/HCPCS: 36415; 80048; 83880

== ENCOUNTER → 2017-08-07 | Outpatient (CLI) | payer MEDICARE, OTHER ==
[2017-08-07 11:37] LABS: ABSOLUTE EOSINOPHILS # (AUTO) 0.2 10^3/uL (0.0-0.6); ABSOLUTE LYMPHOCYTES (AUTO) 1.7 10^3/uL (0.5-4.7); ABSOLUTE MONOCYTES (AUTO) 0.4 10^3/uL (0.1-1.4); ABSOLUTE NEUT (AUTO) 3.9 10^3/uL (1.7-8.2); BASOPHILS % (AUTO) 0.5 % (0-2); EOSINOPHILS % (AUTO) 3.4 % (0-6); HEMATOCRIT 39.2 % (37.9-51.0); HEMOGLOBIN 13.7 g/dL (13.5-17.0); LYMPHOCYTES % (AUTO) 27.6 % (13-45); MEAN CORPUSCULAR HEMOGLOBIN 33.5 pg (27.0-33.4); MEAN CORPUSCULAR HGB CONC 34.9 g/dL (32.0-36.0); MEAN CORPUSCULAR VOLUME 96 fl (80-97); MONOCYTES % (AUTO) 6.4 % (3-13); PLATELET COUNT 112 10^3/uL (150-450); RED BLOOD COUNT 4.08 10^6/uL (4.35-5.55); RED CELL DISTRIBUTION WIDTH 15.4 % (11.5-14.0); SEGMENTED NEUTROPHILS % (AUTO) 62.1 % (42-78); TOTAL CELLS COUNTED % (AUTO) 100 %; WHITE BLOOD COUNT 6.3 10^3/uL (4.0-10.5)
[2017-08-07 11:54] LABS: APPEARANCE,URINE CLEAR; BILIRUBIN,URINE NEGATIVE (NEGATIVE); COLOR,URINE YELLOW; GLUCOSE, URINE NEGATIVE (NEGATIVE); KETONES,URINE NEGATIVE (NEGATIVE); LEUKOCYTE ESTERASE,URINE TRACE (NEGATIVE); NITRITE,URINE NEGATIVE (NEGATIVE); PROTEIN,URINE NEGATIVE (NEGATIVE); URINE SPECIFIC GRAVITY 1.015
[2017-08-07 12:07] LABS: ALANINE AMINOTRANSFERASE 18 U/L (21-72); ALBUMIN 4.4 g/dL (3.5-5.0); ALKALINE PHOSPHATASE 61 U/L (38-126); ANION GAP 14 (5-19); ASPARTATE AMINO TRANSFERASE 18 U/L (17-59); BILIRUBIN,DIRECT 0.4 mg/dL (0.0-0.4); BILIRUBIN,TOTAL 3.4 mg/dL (0.2-1.3); BLOOD UREA NITROGEN 17 mg/dL (7-20); CALCIUM 9.6 mg/dL (8.4-10.2); CARBON DIOXIDE 27 mmol/L (22-30); CHLORIDE 104 mmol/L (98-107); GLUCOSE 106 mg/dL (75-110); POTASSIUM 4.7 mmol/L (3.6-5.0); SODIUM 144.7 mmol/L (137-145); TOTAL PROTEIN 7.3 g/dL (6.3-8.2)
== END ==
LOC: OD 10:35
PROVIDERS: ATTEND Internal Medicine Cardiovascular Disease
DX: I50.22 Chronic systolic (congestive) heart failure (principal); E87.5 Hyperkalemia; R06.02 Shortness of breath; I48.2 Chronic atrial fibrillation; Z79.01 Long term (current) use of anticoagulants; Z79.899 Other long term (current) drug therapy
CPT/HCPCS: 36415; 80048; 80076; 81001; 82272; 83880; 85025; 85730

== ENCOUNTER → 2017-09-09 | Outpatient (CLI) | payer MEDICARE, OTHER ==
[2017-09-09 13:05] LABS: ANION GAP 13 (5-19); BLOOD UREA NITROGEN 20 mg/dL (7-20); CARBON DIOXIDE 29 mmol/L (22-30); CHLORIDE 104 mmol/L (98-107); GLUCOSE 95 mg/dL (75-110); SODIUM 146.4 mmol/L (137-145)
== END ==
LOC: OD 11:17
PROVIDERS: ATTEND Internal Medicine Cardiovascular Disease
DX: E87.5 Hyperkalemia (principal); I50.22 Chronic systolic (congestive) heart failure; R06.02 Shortness of breath
CPT/HCPCS: 36415; 80048; 83880

== ENCOUNTER → 2017-11-04 | Outpatient (CLI) | payer MEDICARE, OTHER ==
[2017-11-04 11:25] LABS: ALANINE AMINOTRANSFERASE 20 U/L (21-72); ALBUMIN 4.2 g/dL (3.5-5.0); ALKALINE PHOSPHATASE 59 U/L (38-126); ANION GAP 15 (5-19); ASPARTATE AMINO TRANSFERASE 15 U/L (17-59); BILIRUBIN,DIRECT 0.3 mg/dL (0.0-0.4); BILIRUBIN,TOTAL 2.1 mg/dL (0.2-1.3); BLOOD UREA NITROGEN 20 mg/dL (7-20); CALCIUM 9.1 mg/dL (8.4-10.2); CARBON DIOXIDE 24 mmol/L (22-30); CHLORIDE 103 mmol/L (98-107); CHOLESTEROL 131.75 mg/dL (0-200); GLUCOSE 123 mg/dL (75-110); POTASSIUM 4.5 mmol/L (3.6-5.0); SODIUM 142.4 mmol/L (137-145); TOTAL PROTEIN 6.9 g/dL (6.3-8.2); TRIGLYCERIDES 111 mg/dL (<150)
[2017-11-04 11:36] LABS: DIRECT LDL 80 mg/dL (<100)
[2017-11-05 09:41] LABS: ABSOLUTE EOSINOPHILS # (AUTO) 0.2 10^3/uL (0.0-0.6); ABSOLUTE LYMPHOCYTES (AUTO) 1.5 10^3/uL (0.5-4.7); ABSOLUTE MONOCYTES (AUTO) 0.5 10^3/uL (0.1-1.4); ABSOLUTE NEUT (AUTO) 4.6 10^3/uL (1.7-8.2); BASOPHILS % (AUTO) 0.5 % (0-2); EOSINOPHILS % (AUTO) 3.1 % (0-6); HEMATOCRIT 40.6 % (37.9-51.0); LYMPHOCYTES % (AUTO) 22.4 % (13-45); MEAN CORPUSCULAR HEMOGLOBIN 33.2 pg (27.0-33.4); MEAN CORPUSCULAR HGB CONC 34.6 g/dL (32.0-36.0); MEAN CORPUSCULAR VOLUME 96 fl (80-97); MONOCYTES % (AUTO) 6.7 % (3-13); PLATELET COUNT 105 10^3/uL (150-450); RED BLOOD COUNT 4.22 10^6/uL (4.35-5.55); RED CELL DISTRIBUTION WIDTH 14.2 % (11.5-14.0); SEGMENTED NEUTROPHILS % (AUTO) 67.3 % (42-78); TOTAL CELLS COUNTED % (AUTO) 100 %; WHITE BLOOD COUNT 6.9 10^3/uL (4.0-10.5)
[2017-11-05 10:00] LABS: APPEARANCE,URINE CLEAR; BILIRUBIN,URINE NEGATIVE (NEGATIVE); GLUCOSE, URINE NEGATIVE (NEGATIVE); KETONES,URINE NEGATIVE (NEGATIVE); LEUKOCYTE ESTERASE,URINE LARGE (NEGATIVE); NITRITE,URINE NEGATIVE (NEGATIVE); PROTEIN,URINE NEGATIVE (NEGATIVE); URINE SPECIFIC GRAVITY 1.011
[2017-11-05 10:02] LABS: COLOR,URINE YELLOW
[2017-11-05 10:06] LABS: ALANINE AMINOTRANSFERASE 12 U/L (21-72); ALBUMIN 4.3 g/dL (3.5-5.0); ALKALINE PHOSPHATASE 59 U/L (38-126); ANION GAP 15 (5-19); ASPARTATE AMINO TRANSFERASE 17 U/L (17-59); BILIRUBIN,DIRECT 0.4 mg/dL (0.0-0.4); BILIRUBIN,TOTAL 2.4 mg/dL (0.2-1.3); BLOOD UREA NITROGEN 22 mg/dL (7-20); CALCIUM 9.5 mg/dL (8.4-10.2); CARBON DIOXIDE 27 mmol/L (22-30); CHLORIDE 102 mmol/L (98-107); GLUCOSE 130 mg/dL (75-110); POTASSIUM 4.9 mmol/L (3.6-5.0); SODIUM 143.8 mmol/L (137-145); TOTAL PROTEIN 7.5 g/dL (6.3-8.2)
== END ==
LOC: OD 09:29
PROVIDERS: ATTEND Internal Medicine Cardiovascular Disease
DX: E87.5 Hyperkalemia (principal); I50.22 Chronic systolic (congestive) heart failure; R06.02 Shortness of breath; E78.2 Mixed hyperlipidemia; I48.0 Paroxysmal atrial fibrillation; Z79.899 Other long term (current) drug therapy
CPT/HCPCS: 36415; 80048; 80061; 80076; 81001; 82272; 83735; 85025; 85730

== ENCOUNTER → 2018-02-01 | Outpatient (CLI) | payer MEDICARE, OTHER ==
[2018-02-01 09:36] LABS: HEMATOCRIT 40.5 % (37.9-51.0); HEMOGLOBIN 14.4 g/dL (13.5-17.0); MEAN CORPUSCULAR HEMOGLOBIN 34.2 pg (27.0-33.4); MEAN CORPUSCULAR HGB CONC 35.6 g/dL (32.0-36.0); MEAN CORPUSCULAR VOLUME 96 fl (80-97); PLATELET COUNT 134 10^3/uL (150-450); RED BLOOD COUNT 4.21 10^6/uL (4.35-5.55); RED CELL DISTRIBUTION WIDTH 14.6 % (11.5-14.0); WHITE BLOOD COUNT 7.7 10^3/uL (4.0-10.5)
[2018-02-01 10:14] LABS: ALANINE AMINOTRANSFERASE 11 U/L (21-72); ALBUMIN 4.4 g/dL (3.5-5.0); ALKALINE PHOSPHATASE 76 U/L (38-126); ANION GAP 13 (5-19); ASPARTATE AMINO TRANSFERASE 14 U/L (17-59); BILIRUBIN,DIRECT 0.5 mg/dL (0.0-0.4); BILIRUBIN,TOTAL 2.1 mg/dL (0.2-1.3); BLOOD UREA NITROGEN 20 mg/dL (7-20); CALCIUM 9.8 mg/dL (8.4-10.2); CARBON DIOXIDE 27 mmol/L (22-30); CHLORIDE 102 mmol/L (98-107); GLUCOSE 134 mg/dL (75-110); POTASSIUM 5.2 mmol/L (3.6-5.0); SODIUM 141.9 mmol/L (137-145); TOTAL PROTEIN 7.2 g/dL (6.3-8.2)
[2018-02-01 10:24] LABS: AMORPHOUS SEDIMENT,URINE TRACE /HPF; APPEARANCE,URINE SLIGHTLY-CLOUDY; BILIRUBIN,URINE NEGATIVE (NEGATIVE); COLOR,URINE YELLOW; GLUCOSE, URINE NEGATIVE (NEGATIVE); KETONES,URINE NEGATIVE (NEGATIVE); LEUKOCYTE ESTERASE,URINE LARGE (NEGATIVE); NITRITE,URINE NEGATIVE (NEGATIVE); PROTEIN,URINE NEGATIVE (NEGATIVE); URINE SPECIFIC GRAVITY 1.014
[2018-02-01 23:52] LABS: CHOLESTEROL 182.45 mg/dL (0-200); TRIGLYCERIDES 168 mg/dL (<150)
[2018-02-02 00:03] LABS: DIRECT LDL 147 mg/dL (<100)
[2018-02-02 00:07] LABS: VLDL CHOLESTEROL 33.6 mg/dL (10-31)
== END ==
LOC: OD 08:29
PROVIDERS: ATTEND Internal Medicine Cardiovascular Disease
DX: E78.2 Mixed hyperlipidemia (principal); I50.22 Chronic systolic (congestive) heart failure; I48.2 Chronic atrial fibrillation; Z79.01 Long term (current) use of anticoagulants; Z79.899 Other long term (current) drug therapy
CPT/HCPCS: 36415; 80048; 80061; 80076; 81001; 82272; 83735; 85027; 85730

== ENCOUNTER → 2018-03-12 | Outpatient (CLI) | payer MEDICARE, OTHER ==
[2018-03-12 10:17] LABS: ALANINE AMINOTRANSFERASE 13 U/L (21-72); ALBUMIN 4.3 g/dL (3.5-5.0); ALKALINE PHOSPHATASE 63 U/L (38-126); ANION GAP 12 (5-19); ASPARTATE AMINO TRANSFERASE 14 U/L (17-59); BILIRUBIN,DIRECT 0.3 mg/dL (0.0-0.4); BLOOD UREA NITROGEN 24 mg/dL (7-20); CALCIUM 8.9 mg/dL (8.4-10.2); CARBON DIOXIDE 25 mmol/L (22-30); CHLORIDE 106 mmol/L (98-107); CHOLESTEROL 122.65 mg/dL (0-200); GLUCOSE 127 mg/dL (75-110); SODIUM 142.9 mmol/L (137-145); TOTAL PROTEIN 7.1 g/dL (6.3-8.2); TRIGLYCERIDES 99 mg/dL (<150)
[2018-03-12 10:27] LABS: DIRECT LDL 91 mg/dL (<100)
== END ==
LOC: OD 08:56
PROVIDERS: ATTEND Internal Medicine Cardiovascular Disease
DX: I50.22 Chronic systolic (congestive) heart failure (principal); I48.0 Paroxysmal atrial fibrillation; E78.2 Mixed hyperlipidemia; Z79.899 Other long term (current) drug therapy
CPT/HCPCS: 36415; 80048; 80061; 80076; 83735

== ENCOUNTER → 2018-05-05 | Outpatient (CLI) | payer MEDICARE, OTHER ==
[2018-05-05 10:36] LABS: HEMATOCRIT 40.3 % (37.9-51.0); MEAN CORPUSCULAR HEMOGLOBIN 33.6 pg (27.0-33.4); MEAN CORPUSCULAR HGB CONC 34.8 g/dL (32.0-36.0); MEAN CORPUSCULAR VOLUME 97 fl (80-97); PLATELET COUNT 118 10^3/uL (150-450); RED BLOOD COUNT 4.17 10^6/uL (4.35-5.55); WHITE BLOOD COUNT 6.3 10^3/uL (4.0-10.5)
[2018-05-05 10:41] LABS: APPEARANCE,URINE CLEAR; BILIRUBIN,URINE NEGATIVE (NEGATIVE); COLOR,URINE YELLOW; GLUCOSE, URINE NEGATIVE (NEGATIVE); KETONES,URINE NEGATIVE (NEGATIVE); LEUKOCYTE ESTERASE,URINE TRACE (NEGATIVE); NITRITE,URINE NEGATIVE (NEGATIVE); PROTEIN,URINE NEGATIVE (NEGATIVE); URINE SPECIFIC GRAVITY 1.014
[2018-05-05 10:57] LABS: ALANINE AMINOTRANSFERASE 26 U/L (21-72); ALBUMIN 4.7 g/dL (3.5-5.0); ALKALINE PHOSPHATASE 64 U/L (38-126); ANION GAP 12 (5-19); ASPARTATE AMINO TRANSFERASE 19 U/L (17-59); BILIRUBIN,DIRECT 0.4 mg/dL (0.0-0.4); BLOOD UREA NITROGEN 21 mg/dL (7-20); CALCIUM 9.4 mg/dL (8.4-10.2); CARBON DIOXIDE 27 mmol/L (22-30); CHLORIDE 104 mmol/L (98-107); GLUCOSE 118 mg/dL (75-110); POTASSIUM 4.5 mmol/L (3.6-5.0); TOTAL PROTEIN 7.3 g/dL (6.3-8.2)
== END ==
LOC: OD 09:25
PROVIDERS: ATTEND Internal Medicine Cardiovascular Disease
DX: I48.2 Chronic atrial fibrillation (principal); Z79.01 Long term (current) use of anticoagulants; Z79.899 Other long term (current) drug therapy
CPT/HCPCS: 36415; 80048; 80076; 81001; 82272; 85027; 85730

== ENCOUNTER → 2018-08-05 | Outpatient (CLI) | payer MEDICARE, OTHER ==
[2018-08-05 09:54] LABS: HEMATOCRIT 39.8 % (37.9-51.0); HEMOGLOBIN 13.7 g/dL (13.5-17.0); MEAN CORPUSCULAR HEMOGLOBIN 33.3 pg (27.0-33.4); MEAN CORPUSCULAR HGB CONC 34.3 g/dL (32.0-36.0); MEAN CORPUSCULAR VOLUME 97 fl (80-97); PLATELET COUNT 108 10^3/uL (150-450); RED BLOOD COUNT 4.11 10^6/uL (4.35-5.55); RED CELL DISTRIBUTION WIDTH 14.7 % (11.5-14.0)
[2018-08-05 09:57] LABS: APPEARANCE,URINE CLEAR; BILIRUBIN,URINE NEGATIVE (NEGATIVE); COLOR,URINE YELLOW; GLUCOSE, URINE NEGATIVE (NEGATIVE); KETONES,URINE NEGATIVE (NEGATIVE); LEUKOCYTE ESTERASE,URINE MODERATE (NEGATIVE); NITRITE,URINE NEGATIVE (NEGATIVE); PROTEIN,URINE NEGATIVE (NEGATIVE); URINE SPECIFIC GRAVITY 1.018
[2018-08-05 10:22] LABS: ALANINE AMINOTRANSFERASE 25 U/L (21-72); ALBUMIN 4.2 g/dL (3.5-5.0); ALKALINE PHOSPHATASE 56 U/L (38-126); ANION GAP 11 (5-19); ASPARTATE AMINO TRANSFERASE 16 U/L (17-59); BILIRUBIN,DIRECT 0.5 mg/dL (0.0-0.4); BILIRUBIN,TOTAL 1.9 mg/dL (0.2-1.3); BLOOD UREA NITROGEN 19 mg/dL (7-20); CALCIUM 9.5 mg/dL (8.4-10.2); CARBON DIOXIDE 27 mmol/L (22-30); CHLORIDE 106 mmol/L (98-107); GLUCOSE 116 mg/dL (75-110); POTASSIUM 4.7 mmol/L (3.6-5.0); SODIUM 143.9 mmol/L (137-145)
== END ==
LOC: OD 08:28
PROVIDERS: ATTEND Internal Medicine Cardiovascular Disease
DX: I48.2 Chronic atrial fibrillation (principal); Z79.01 Long term (current) use of anticoagulants; Z79.899 Other long term (current) drug therapy
CPT/HCPCS: 36415; 80048; 80076; 81001; 82272; 85027; 85730

== ENCOUNTER → 2018-09-05 | Outpatient (CLI) | payer MEDICARE, OTHER ==
[2018-09-05 10:22] LABS: CHOLESTEROL 93.91 mg/dL (0-200); TRIGLYCERIDES 122 mg/dL (<150)
[2018-09-05 10:33] LABS: DIRECT LDL 57 mg/dL (<100)
== END ==
LOC: LAB 09:25
PROVIDERS: ATTEND Internal Medicine Cardiovascular Disease
DX: E78.2 Mixed hyperlipidemia (principal); I48.2 Chronic atrial fibrillation; I50.22 Chronic systolic (congestive) heart failure; R06.02 Shortness of breath
CPT/HCPCS: 36415; 80061; 83880

== ENCOUNTER → 2018-11-04 | Outpatient (CLI) | payer MEDICARE, OTHER ==
[2018-11-04 09:06] LABS: HEMATOCRIT 41.5 % (37.9-51.0); HEMOGLOBIN 14.2 g/dL (13.5-17.0); MEAN CORPUSCULAR HEMOGLOBIN 33.7 pg (27.0-33.4); MEAN CORPUSCULAR HGB CONC 34.2 g/dL (32.0-36.0); MEAN CORPUSCULAR VOLUME 99 fl (80-97); PLATELET COUNT 117 10^3/uL (150-450); RED CELL DISTRIBUTION WIDTH 15.1 % (11.5-14.0); WHITE BLOOD COUNT 8.5 10^3/uL (4.0-10.5)
[2018-11-04 09:29] LABS: APPEARANCE,URINE CLEAR; BILIRUBIN,URINE NEGATIVE (NEGATIVE); COLOR,URINE YELLOW; GLUCOSE, URINE NEGATIVE (NEGATIVE); KETONES,URINE NEGATIVE (NEGATIVE); LEUKOCYTE ESTERASE,URINE MODERATE (NEGATIVE); NITRITE,URINE NEGATIVE (NEGATIVE); PROTEIN,URINE NEGATIVE (NEGATIVE); URINE SPECIFIC GRAVITY 1.014
[2018-11-04 09:35] LABS: ALBUMIN 4.6 g/dL (3.5-5.0); ALKALINE PHOSPHATASE 59 U/L (38-126); ANION GAP 9 (5-19); ASPARTATE AMINO TRANSFERASE 18 U/L (17-59); BILIRUBIN,DIRECT 0.3 mg/dL (0.0-0.4); BILIRUBIN,TOTAL 2.3 mg/dL (0.2-1.3); BLOOD UREA NITROGEN 27 mg/dL (7-20); CALCIUM 9.5 mg/dL (8.4-10.2); CARBON DIOXIDE 29 mmol/L (22-30); CHLORIDE 102 mmol/L (98-107); GLUCOSE 130 mg/dL (75-110); POTASSIUM 5.3 mmol/L (3.6-5.0); TOTAL PROTEIN 7.5 g/dL (6.3-8.2)
== END ==
LOC: LAB 08:38
PROVIDERS: ATTEND Internal Medicine Cardiovascular Disease
DX: I48.2 Chronic atrial fibrillation (principal); Z79.01 Long term (current) use of anticoagulants; Z79.899 Other long term (current) drug therapy
CPT/HCPCS: 36415; 80048; 80076; 81001; 82272; 85027; 85730

== ENCOUNTER → 2018-12-08 | Outpatient (CLI) | payer MEDICARE, OTHER ==
[2018-12-08 09:02] LABS: ANION GAP 11 (5-19); BLOOD UREA NITROGEN 24 mg/dL (7-20); CALCIUM 9.2 mg/dL (8.4-10.2); CARBON DIOXIDE 25 mmol/L (22-30); CHLORIDE 102 mmol/L (98-107); GLUCOSE 133 mg/dL (75-110); POTASSIUM 4.4 mmol/L (3.6-5.0)
== END ==
LOC: LAB 08:04
PROVIDERS: ATTEND Internal Medicine Cardiovascular Disease
DX: I50.22 Chronic systolic (congestive) heart failure (principal); R06.02 Shortness of breath
CPT/HCPCS: 36415; 80048; 83880

== ENCOUNTER → 2019-01-07 | Outpatient (CLI) | payer MEDICARE, OTHER ==
[2019-01-07 09:39] LABS: ANION GAP 10 (5-19); BLOOD UREA NITROGEN 19 mg/dL (7-20); CALCIUM 9.1 mg/dL (8.4-10.2); CARBON DIOXIDE 25 mmol/L (22-30); CHLORIDE 104 mmol/L (98-107); GLUCOSE 131 mg/dL (75-110); POTASSIUM 4.4 mmol/L (3.6-5.0)
== END ==
LOC: LAB 08:38
PROVIDERS: ATTEND Internal Medicine Cardiovascular Disease
DX: I50.22 Chronic systolic (congestive) heart failure (principal); R06.02 Shortness of breath; I48.20 Chronic atrial fibrillation, unspecified
CPT/HCPCS: 36415; 80048; 83735; 83880

== ENCOUNTER 2019-01-21 13:08 | Emergency (ER) | payer MEDICARE, OTHER ==
--- NOTE | 2019-01-21 13:35 | ER Document Report ---
ED Medical Screen (RME) - General Chief Complaint: Urinary Problem Stated Complaint: URINARY PROBLEM Time Seen by Provider: 01/21/19 13:34 Mode of Arrival: Ambulatory Information source: Patient Notes: Patient presents complaining of a UTI. Patient states he has burning to the urethra whenever he voids. Patient denies any abdominal pain or flank pain. Patient denies any nausea or vomiting. Patient states he has had dysuria symptoms for the past week. Patient states earlier in the week he had a fever but that has since improved. I have greeted and performed a rapid initial assessment of this patient. A comprehensive ED assessment and evaluation of the patient, analysis of test results and completion of the medical decision making process will be conducted by additional ED providers. TRAVEL OUTSIDE OF THE [place] IN LAST 30 DAYS: No - Related Data Allergies/Adverse Reactions: acetaminophen [Acetaminophen] Allergy (Verified 01/21/19 13:29) aspirin [Aspirin] Allergy (Verified 01/21/19 13:29) Past Medical History - Past Medical History Cardiac Medical History: Reports: Hx Atrial Fibrillation, Hx Congestive Heart Failure, Hx Heart Attack - "silent", Hx Hypercholesterolemia, Hx Hypertension Pulmonary Medical History: Denies: Hx Asthma, Hx COPD Endocrine Medical History: Reports: Hx Diabetes Mellitus Type 2 Renal/ Medical History: Denies: Hx Peritoneal Dialysis Past Surgical History: Reports: Hx Cardiac Surgery - triple bypass, pacemaker, Hx Cholecystectomy, Hx Coronary Artery Bypass Graft, Hx Pacemaker - Immunizations Hx Diphtheria, Pertussis, Tetanus Vaccination: No Physical Exam - General General appearance: Appears well, Alert - Back Back: Normal. No: CVA tenderness
[2019-01-21 14:33] LABS: ABSOLUTE EOSINOPHILS # (AUTO) 0.2 10^3/uL (0.0-0.6); ABSOLUTE LYMPHOCYTES (AUTO) 1.5 10^3/uL (0.5-4.7); ABSOLUTE MONOCYTES (AUTO) 0.9 10^3/uL (0.1-1.4); ABSOLUTE NEUT (AUTO) 6.5 10^3/uL (1.7-8.2); BASOPHILS % (AUTO) 0.5 % (0-2); EOSINOPHILS % (AUTO) 2.5 % (0-6); HEMATOCRIT 37.3 % (37.9-51.0); HEMOGLOBIN 12.7 g/dL (13.5-17.0); LYMPHOCYTES % (AUTO) 16.4 % (13-45); MEAN CORPUSCULAR VOLUME 100 fl (80-97); MONOCYTES % (AUTO) 9.4 % (3-13); PLATELET COUNT 187 10^3/uL (150-450); RED BLOOD COUNT 3.72 10^6/uL (4.35-5.55); RED CELL DISTRIBUTION WIDTH 14.9 % (11.5-14.0); SEGMENTED NEUTROPHILS % (AUTO) 71.2 % (42-78); TOTAL CELLS COUNTED % (AUTO) 100 %; WHITE BLOOD COUNT 9.2 10^3/uL (4.0-10.5)
[2019-01-21 14:56] LABS: AMORPHOUS SEDIMENT,URINE TRACE /HPF; APPEARANCE,URINE SLIGHTLY-CLOUDY; BILIRUBIN,URINE NEGATIVE (NEGATIVE); COLOR,URINE YELLOW; GLUCOSE, URINE NEGATIVE (NEGATIVE); KETONES,URINE NEGATIVE (NEGATIVE); PROTEIN,URINE NEGATIVE (NEGATIVE); URINE SPECIFIC GRAVITY 1.008
[2019-01-21 14:57] LABS: ALKALINE PHOSPHATASE 84 U/L (38-126); ANION GAP 11 (5-19); ASPARTATE AMINO TRANSFERASE 26 U/L (17-59); BILIRUBIN,DIRECT 0.2 mg/dL (0.0-0.4); BILIRUBIN,TOTAL 0.9 mg/dL (0.2-1.3); BLOOD UREA NITROGEN 21 mg/dL (7-20); CALCIUM 8.8 mg/dL (8.4-10.2); CARBON DIOXIDE 25 mmol/L (22-30); CHLORIDE 104 mmol/L (98-107); GLUCOSE 100 mg/dL (75-110); POTASSIUM 4.4 mmol/L (3.6-5.0); TOTAL PROTEIN 7.4 g/dL (6.3-8.2)
[2019-01-21] MEDS ORDERED: CEFTRIAXONE 1 GM/D5W RTU 1 GM/50 ML RTUPB IV ONE (15:17)
--- NOTE | 2019-01-21 15:28 | ER Document Report ---
ED General - General Chief Complaint: Pain With Urination Stated Complaint: URINARY PROBLEM Time Seen by Provider: 01/21/19 13:34 Mode of Arrival: Ambulatory TRAVEL OUTSIDE OF THE [place] IN LAST 30 DAYS: No - HPI Notes: Patient is an 83-year-old male who presents emergency department for evaluation of dysuria and urinary frequency. Symptoms have been present for approximately 6 days. He denies any fevers. He states he felt chilled a few days ago, but denies any Reiger's. No nausea or vomiting. Eating and drinking normally. Taking his medication without difficulty. He states he has a pressure sensation in his bladder after voiding, but denies any other pain at this time. - Related Data Allergies/Adverse Reactions: acetaminophen [Acetaminophen] Allergy (Verified 01/21/19 13:29) aspirin [Aspirin] Allergy (Verified 01/21/19 13:29) Home Medications: List reviewed, please see notes Past Medical History - General Information source: Patient - Social History Smoking Status: Former Smoker Chew tobacco use (# tins/day): No Frequency of alcohol use: None Drug Abuse: None Family History: Reviewed & Not Pertinent, Hypertension Patient has suicidal ideation: No Patient has homicidal ideation: No - Past Medical History Cardiac Medical History: Reports: Hx Atrial Fibrillation, Hx Congestive Heart Failure, Hx Heart Attack - "silent", Hx Hypercholesterolemia, Hx Hypertension Pulmonary Medical History: Denies: Hx Asthma, Hx COPD Renal/ Medical History: Denies: Hx Peritoneal Dialysis Past Surgical History: Reports: Hx Cardiac Surgery - triple bypass, pacemaker, Hx Cholecystectomy, Hx Coronary Artery Bypass Graft, Hx Pacemaker - Immunizations Hx Diphtheria, Pertussis, Tetanus Vaccination: No Review of Systems - Review of Systems EENT: No symptoms reported Cardiovascular: No symptoms reported Respiratory: No symptoms reported Gastrointestinal: No symptoms reported Genitourinary: See HPI Male Genitourinary: No symptoms reported Musculoskeletal: No symptoms reported Skin: No symptoms reported Neurological/Psychological: No symptoms reported Physical Exam - Vital signs Vitals: Temp Pulse Resp BP Pulse Ox 98.6 F 81 20 114/69 95 01/21/19 13:29 01/21/19 13:29 01/21/19 13:29 01/21/19 13:29 01/21/19 13:29 - Notes Notes: Vital signs reviewed, please refer to chart. Head is normocephalic, atraumatic. Pupils equal round, reactive to light. Neck is supple without meningismus. Heart is regular rate and rhythm. Lungs are clear to auscultation bilaterally. Abdomen is soft, nontender, normoactive bowel sounds throughout. No CVA tenderness noted. Extremities without cyanosis, clubbing. Posterior calves are nontender. Peripheral pulses are equal. Skin is warm and dry. Patient is awake, alert, neurological exam is nonfocal. Course - Re-evaluation Re-evalutation: 01/21/19 15:26 Patient presents emergency department for evaluation of urinary symptoms. His urine is consistent with a UTI. He does not have any significant leukocytosis, no abnormal vital signs. Urine is sent for culture. I did obtain blood cultures given that this is an 83-year-old male with several days of urinary symptoms. He is given a dose of IV Rocephin. We will send him home with a prescription for Keflex and close follow-up. He is to return to the ED with worsening. - Vital Signs Vital signs: Temp Pulse Resp BP Pulse Ox 98.6 F 81 20 114/69 95 01/21/19 13:29 01/21/19 13:29 01/21/19 13:29 01/21/19 13:29 01/21/19 13:29 - Laboratory Result Diagrams: 01/21/19 14:00 01/21/19 14:00 Laboratory results interpreted by me: 01/21/19 01/21/19 01/21/19 14:00 14:00 14:00 RBC 3.72 L Hgb 12.7 L Hct 37.3 L MCV 100 H MCH 34.0 H RDW 14.9 H BUN 21 H Creatinine 1.26 H Est GFR (MDRD) Non-Af 54 L Urine Blood SMALL H Urine Urobilinogen 2.0 H Leukocyte Esterase Rfl LARGE H Discharge - Discharge Clinical Impression: Urinary tract infection Qualifiers: Urinary tract infection type: acute cystitis Hematuria presence: without hematuria Qualified Code(s): N30.00 - Acute cystitis without hematuria Condition: Stable Disposition: HOME, SELF-CARE Instructions: Cephalexin ([facility]), Urinary Tract Infection ([facility]) Additional Instructions: Take all the antibiotic as prescribed, until gone. Follow-up with primary care next week, have your urine rechecked. If you develop fevers, vomiting, shaking chills, increased pain, or any other new or concerning symptoms, please return immediately to the emergency department for evaluation.
[2019-01-21 17:04] VITALS: BP 117/43
== END 2019-01-21 16:41 | disposition home or self-care (01) ==
LOC: ER 13:08
DX: N30.00 Acute cystitis without hematuria (principal); R30.0 Dysuria; R35.0 Frequency of micturition; I10 Essential (primary) hypertension; Z88.8 Allergy status to other drugs, medicaments and biological substances; Z87.891 Personal history of nicotine dependence
CPT/HCPCS: 99283; 36415; 87040; 87086; 85025; 87088; 80053; 81001; 87186; J0696

== ENCOUNTER → 2019-02-13 | Outpatient (CLI) | payer MEDICARE, OTHER ==
[2019-02-13 09:52] LABS: APPEARANCE,URINE CLEAR; BILIRUBIN,URINE NEGATIVE (NEGATIVE); COLOR,URINE YELLOW; GLUCOSE, URINE NEGATIVE (NEGATIVE); KETONES,URINE NEGATIVE (NEGATIVE); LEUKOCYTE ESTERASE,URINE NEGATIVE (NEGATIVE); NITRITE,URINE NEGATIVE (NEGATIVE); PROTEIN,URINE NEGATIVE (NEGATIVE)
[2019-02-13 09:57] LABS: HEMATOCRIT 40.5 % (37.9-51.0); HEMOGLOBIN 13.9 g/dL (13.5-17.0); MEAN CORPUSCULAR HEMOGLOBIN 33.9 pg (27.0-33.4); MEAN CORPUSCULAR HGB CONC 34.3 g/dL (32.0-36.0); MEAN CORPUSCULAR VOLUME 99 fl (80-97); PLATELET COUNT 100 10^3/uL (150-450); RED CELL DISTRIBUTION WIDTH 15.3 % (11.5-14.0); WHITE BLOOD COUNT 7.1 10^3/uL (4.0-10.5)
[2019-02-13 10:27] LABS: ALBUMIN 4.6 g/dL (3.5-5.0); ALKALINE PHOSPHATASE 63 U/L (38-126); ANION GAP 12 (5-19); ASPARTATE AMINO TRANSFERASE 16 U/L (17-59); BILIRUBIN,DIRECT 0.2 mg/dL (0.0-0.4); BLOOD UREA NITROGEN 17 mg/dL (7-20); CALCIUM 9.5 mg/dL (8.4-10.2); CARBON DIOXIDE 28 mmol/L (22-30); CHLORIDE 100 mmol/L (98-107); GLUCOSE 121 mg/dL (75-110); POTASSIUM 4.3 mmol/L (3.6-5.0); TOTAL PROTEIN 7.8 g/dL (6.3-8.2)
== END ==
LOC: LAB 09:11
PROVIDERS: ATTEND Internal Medicine Cardiovascular Disease
DX: Z79.01 Long term (current) use of anticoagulants (principal); Z79.899 Other long term (current) drug therapy
CPT/HCPCS: 36415; 80048; 80076; 81001; 82272; 85027; 85730

== ENCOUNTER → 2019-03-03 | Outpatient (CLI) | payer MEDICARE, OTHER ==
[2019-03-03 09:51] LABS: CHOLESTEROL 189.09 mg/dL (0-200); TRIGLYCERIDES 104 mg/dL (<150)
[2019-03-03 10:02] LABS: DIRECT LDL 147 mg/dL (<100)
[2019-03-03 12:21] LABS: ALBUMIN 3.9 g/dL (3.5-5.0); ALKALINE PHOSPHATASE 67 U/L (38-126); ASPARTATE AMINO TRANSFERASE 14 U/L (17-59); BILIRUBIN,DIRECT 0.4 mg/dL (0.0-0.4); BILIRUBIN,TOTAL 1.6 mg/dL (0.2-1.3)
== END ==
LOC: LAB 09:15
PROVIDERS: ATTEND Internal Medicine Cardiovascular Disease
DX: E78.2 Mixed hyperlipidemia (principal)
CPT/HCPCS: 36415; 80061; 80076

== ENCOUNTER 2019-03-11 13:22 | Emergency (ER) | payer MEDICARE, OTHER ==
[2019-03-11] MEDS ORDERED: LIDOCAINE 2% URO-JET 5 ML KIT MM ONE (14:30)
--- NOTE | 2019-03-11 14:30 | ER Document Report ---
ED Medical Screen (RME) - General Chief Complaint: Urinary Problem Stated Complaint: URINARY ISSUES Time Seen by Provider: 03/11/19 14:23 Mode of Arrival: Ambulatory Information source: Patient Notes: 83-year-old male patient presents emergency department with complaints of possible acute urinary retention. Patient reports he has to go multiple times a night but sometimes he does not have any output. He denies any dysuria but does report some discomfort when he does urinate. He denies any known history of prostate issues. Exam: Abdomen soft, nontender without guarding or rebound. I have greeted and performed a rapid initial assessment of this patient. A comprehensive ED assessment and evaluation of the patient, analysis of test results and completion of the medical decision making process will be conducted by additional ED providers. I have specifically instructed the patient or family members with the patient to immediately return to any nursing staff should anything change in the patient's condition or with their chief complaint. This medical record was dictated with voice recognizing software. There may be grammatical, syntax errors that are unintended. TRAVEL OUTSIDE OF THE [place] IN LAST 30 DAYS: No - Related Data Allergies/Adverse Reactions: acetaminophen [Acetaminophen] Allergy (Verified 01/21/19 13:29) aspirin [Aspirin] Allergy (Verified 01/21/19 13:29) Past Medical History - Past Medical History Cardiac Medical History: Reports: Hx Atrial Fibrillation, Hx Congestive Heart Failure, Hx Heart Attack - "silent", Hx Hypercholesterolemia, Hx Hypertension Pulmonary Medical History: Denies: Hx Asthma, Hx COPD Endocrine Medical History: Reports: Hx Diabetes Mellitus Type 2 Renal/ Medical History: Denies: Hx Peritoneal Dialysis Past Surgical History: Reports: Hx Cardiac Surgery - triple bypass, pacemaker, Hx Cholecystectomy, Hx Coronary Artery Bypass Graft, Hx Pacemaker - Immunizations Hx Diphtheria, Pertussis, Tetanus Vaccination: No Physical Exam - Vital signs Vitals: Temp Pulse Resp BP Pulse Ox 98.1 F 79 16 118/62 99 03/11/19 13:50 03/11/19 13:50 03/11/19 13:50 03/11/19 13:50 03/11/19 13:50 Course - Vital Signs Vital signs: Temp Pulse Resp BP Pulse Ox 98.1 F 79 16 118/62 99 03/11/19 13:50 03/11/19 13:50 03/11/19 13:50 03/11/19 13:50 03/11/19 13:50
[2019-03-11 15:29] LABS: ABSOLUTE EOSINOPHILS # (AUTO) 0.2 10^3/uL (0.0-0.6); ABSOLUTE LYMPHOCYTES (AUTO) 1.2 10^3/uL (0.5-4.7); ABSOLUTE MONOCYTES (AUTO) 0.8 10^3/uL (0.1-1.4); ABSOLUTE NEUT (AUTO) 8.1 10^3/uL (1.7-8.2); BASOPHILS % (AUTO) 0.4 % (0-2); EOSINOPHILS % (AUTO) 1.6 % (0-6); HEMATOCRIT 36.4 % (37.9-51.0); HEMOGLOBIN 12.6 g/dL (13.5-17.0); MEAN CORPUSCULAR HEMOGLOBIN 33.7 pg (27.0-33.4); MEAN CORPUSCULAR HGB CONC 34.7 g/dL (32.0-36.0); MEAN CORPUSCULAR VOLUME 97 fl (80-97); MONOCYTES % (AUTO) 7.6 % (3-13); PLATELET COUNT 172 10^3/uL (150-450); RED BLOOD COUNT 3.75 10^6/uL (4.35-5.55); RED CELL DISTRIBUTION WIDTH 14.6 % (11.5-14.0); SEGMENTED NEUTROPHILS % (AUTO) 78.4 % (42-78); TOTAL CELLS COUNTED % (AUTO) 100 %; WHITE BLOOD COUNT 10.3 10^3/uL (4.0-10.5)
[2019-03-11 15:43] LABS: ALBUMIN 4.1 g/dL (3.5-5.0); ALKALINE PHOSPHATASE 86 U/L (38-126); ANION GAP 14 (5-19); ASPARTATE AMINO TRANSFERASE 18 U/L (17-59); BILIRUBIN,DIRECT 0.3 mg/dL (0.0-0.4); BILIRUBIN,TOTAL 1.3 mg/dL (0.2-1.3); BLOOD UREA NITROGEN 19 mg/dL (7-20); CALCIUM 9.5 mg/dL (8.4-10.2); CARBON DIOXIDE 26 mmol/L (22-30); CHLORIDE 100 mmol/L (98-107); GLUCOSE 102 mg/dL (75-110); TOTAL PROTEIN 7.4 g/dL (6.3-8.2)
--- NOTE | 2019-03-11 16:06 | ER Document Report ---
ED GI/ - General Chief Complaint: Trouble Voiding Stated Complaint: URINARY ISSUES Time Seen by Provider: 03/11/19 14:23 Primary Care Provider: ALEXANDER WHELAN MD [Primary Care Provider] - Follow up as needed Mode of Arrival: Ambulatory Notes: Patient is a 83-year-old male with a history of pacemaker, atrial fibrillation who presents to the emergency department with a chief complaint of acute urinary retention. Patient reports he was diagnosed with a urinary tract infection back in December but was cleared in January. Patient reports over the past 3 days he has had some urinary incontinence and then earlier today got to the point where he cannot fully empty his bladder. Patient reports he does have slight discomfort with urinating. Patient denies nausea, vomiting or diarrhea. P atient reports he is never had needed a Tobar catheter for urinary retention in the past. Patient denies fever or flank pain. TRAVEL OUTSIDE OF THE [place] IN LAST 30 DAYS: No - Related Data Allergies/Adverse Reactions: acetaminophen [Acetaminophen] Allergy (Verified 01/21/19 13:29) aspirin [Aspirin] Allergy (Verified 01/21/19 13:29) Past Medical History - General Information source: Patient - Social History Smoking Status: Unknown if Ever Smoked Chew tobacco use (# tins/day): No Frequency of alcohol use: None Drug Abuse: None Lives with: Family Family History: Reviewed & Not Pertinent, Hypertension Patient has suicidal ideation: No Patient has homicidal ideation: No - Past Medical History Cardiac Medical History: Reports: Hx Atrial Fibrillation, Hx Congestive Heart Failure, Hx Heart Attack - "silent", Hx Hypercholesterolemia, Hx Hypertension Pulmonary Medical History: Reports: None Denies: Hx Asthma, Hx COPD EENT Medical History: Reports: None Neurological Medical History: Reports: None Endocrine Medical History: Reports: Hx Diabetes Mellitus Type 2 Renal/ Medical History: Reports: None. Denies: Hx Peritoneal Dialysis Malignancy Medical History: Reports None GI Medical History: Reports: None Musculoskeletal Medical History: Reports None Skin Medical History: Reports None Psychiatric Medical History: Reports: None Traumatic Medical History: Reports: None Infectious Medical History: Reports: None Past Surgical History: Reports: Hx Cardiac Surgery - triple bypass, pacemaker, Hx Cholecystectomy, Hx Coronary Artery Bypass Graft, Hx Pacemaker - Immunizations Hx Diphtheria, Pertussis, Tetanus Vaccination: No Review of Systems - Review of Systems Constitutional: No symptoms reported EENT: No symptoms reported Cardiovascular: No symptoms reported Respiratory: No symptoms reported Gastrointestinal: No symptoms reported Genitourinary: See HPI Male Genitourinary: No symptoms reported Musculoskeletal: No symptoms reported Skin: No symptoms reported Hematologic/Lymphatic: No symptoms reported Neurological/Psychological: No symptoms reported Physical Exam - Vital signs Vitals: Temp Pulse Resp BP Pulse Ox 98.1 F 79 16 118/62 99 03/11/19 13:23 03/11/19 13:23 03/11/19 13:23 03/11/19 13:23 03/11/19 13:23 Interpretation: Normal - Notes Notes: GENERAL: Well-appearing, well-nourished and in no acute distress. HEAD: Atraumatic, normocephalic. EYES: Pupils equal round and reactive to light, extraocular movements intact, sclera anicteric, conjunctiva are normal. ENT: Nares patent, oropharynx clear without exudates. Moist mucous membranes. NECK: Normal range of motion, supple without lymphadenopathy or JVD. LUNGS: Breath sounds clear to auscultation bilaterally and equal. No wheezes rales or rhonchi. HEART: Regular rate and rhythm without murmurs, rubs or gallops. ABDOMEN: Soft, nontender, normoactive bowel sounds. No guarding, no rebound. No masses appreciated. BACK: No cervical, thoracic, lumbar midline tenderness. No saddle anesthesia, normal distal neurovascular exam. No CVA tenderness. GENITOURINARY: Deferred. EXTREMITIES: Normal range of motion, no pitting or edema. No clubbing or cyanosis. NEUROLOGICAL: Cranial nerves II through XII grossly intact. Normal speech, normal gait. PSYCH: Normal mood, normal affect. SKIN: Warm, Dry, normal turgor, no rashes or lesions noted. Course - Re-evaluation Re-evalutation: 03/11/19 16:08 Patient does have a Tobar catheter in place. This is patent. Blood work and urinalysis are pending. Patient reports he does feel much better after having the Tobar catheter placed. Patient denies abdominal pain, nausea, vomiting diarrhea or fever. Patient does not have any CVA tenderness. 03/11/19 17:25 Patient does have a urinary tract infection. Patient does not have any significant elevation in his BUN and creatinine. Patient reports feeling comfortable going home and would like the Tobar removed. I did question the patient further and he states that he has been having urinary dribbling but stated that when he came into the emergency department he did urinate in the bathroom in the lobby and has not had strict urinary retention. I will remove the Tobar and have him follow-up with his primary care physician Dr. Whelan within the next week. I have given him a dose of IV Rocephin here in the emerg ency department and told the patient to start his antibiotics tomorrow. - Vital Signs Vital signs: Temp Pulse Resp BP Pulse Ox 98.1 F 79 16 118/62 99 03/11/19 13:50 03/11/19 13:50 03/11/19 13:50 03/11/19 13:50 03/11/19 13:50 - Laboratory Result Diagrams: 03/11/19 15:01 03/11/19 15:01 Laboratory results interpreted by me: 03/11/19 03/11/19 03/11/19 15:01 15:01 15:10 RBC 3.75 L Hgb 12.6 L Hct 36.4 L MCH 33.7 H RDW 14.6 H Lymph % (Auto) 12.0 L Seg Neutrophils % 78.4 H Creatinine 1.32 H Est GFR (MDRD) Non-Af 52 L Urine Nitrite POSITIVE H Ur Leukocyte Esterase LARGE H 03/11/19 16:42 Patient's CBC does not show a significant leukocytosis. Patient does have positive nitrites and leukocytes in his urine. Creatinine slightly elevated at 1.32 but the patient is not in acute kidney failure. Laboratory 03/11/19 03/11/19 03/11/19 15:01 15:01 15:10 WBC 10.3 RBC 3.75 L Hgb 12.6 L Hct 36.4 L MCV 97 MCH 33.7 H MCHC 34.7 RDW 14.6 H Plt Count 172 Lymph % (Auto) 12.0 L [place] % (Auto) 7.6 Eos % (Auto) 1.6 Baso % (Auto) 0.4 Absolute Neuts (auto) 8.1 Absolute Lymphs (auto) 1.2 Absolute Monos (auto) 0.8 Absolute Eos (auto) 0.2 Absolute Basos (auto) 0.0 Seg Neutrophils % 78.4 H Sodium 139.7 Potassium 4.0 Chloride 100 Carbon Dioxide 26 Anion Gap 14 BUN 19 Creatinine 1.32 H Est GFR ( Amer) > 60 Est GFR (MDRD) Non-Af 52 L Glucose 102 Calcium 9.5 Total Bilirubin 1.3 Direct Bilirubin 0.3 Neonat Total Bilirubin Not Reportable Neonat Direct Bilirubin Not Reportable Neonat Indirect Bili Not Reportable AST 18 ALT 13 Alkaline Phosphatase 86 Total Protein 7.4 Albumin 4.1 Urine Color YELLOW Urine Appearance SLIGHTLY-CLOUDY Urine pH 5.0 Ur Specific [place] 1.009 Urine Protein NEGATIVE Urine Glucose (UA) NEGATIVE Urine Ketones NEGATIVE Urine Blood NEGATIVE Urine Nitrite POSITIVE H Urine Bilirubin NEGATIVE Urine Urobilinogen NEGATIVE Ur Leukocyte Esterase LARGE H Urine WBC (Auto) 61 Urine RBC (Auto) 2 U Hyaline Cast (Auto) 9 Urine Mucus (Auto) RARE Urine Ascorbic Acid NEGATIVE Discharge - Discharge Clinical Impression: Urinary frequency Urinary tract infection Qualifiers: Urinary tract infection type: acute cystitis Hematuria presence: with hematuria Qualified Code(s): N30.01 - Acute cystitis with hematuria Condition: Stable Disposition: HOME, SELF-CARE Additional Instructions: *Today was seen in the emergency department for urinary symptoms. We did place a Tobar temporarily and was able to empty your bladder and send off a specimen. You do have a urinary tract infection. You have been given a dose of IV antibiotics here in the emergency department and you will be prescribed oral antibiotics. Please start these oral antibiotics tomorrow. Please follow-up with Dr. Whelan who is your primary care physician within the next week for repeat urinalysis. Please return to the emergency department immediately if you are unable to urinate or empty your bladder over an 8 to 12-hour period, have severe abdominal pain or urinary pain, noticed blood clots in the urine, develop a fever, nausea, vomiting or diarrhea. URINARY TRACT INFECTION: Your evaluation indicates that you have a urinary tract infection. This is due to germs growing in the bladder. This is a common problem. This infection usually responds quickly to antibiotics. Your antibiotic should be taken exactly as prescribed. Drink plenty of fluids -- three to four quarts a day. Occasionally, a bladder anesthetic will be prescribed to help stop the feeling of urgency until the antibiotic has a chance to clear the infection. This may cause your urine to be dark orange. Certain urine infections require a culture. If the doctor obtained a culture, the results will be back in two days. You should call to see if a change in treatment is needed. A repeat urinalysis after you finish treatment is often recommended. The physician will let you know if further testing is required. Call the doctor if you develop fever, chills, flank pain, inability to urinate, or blood in the urine. ANTIBIOTIC THERAPY: You have been given an antibiotic prescription. It's important that you take all the medication, unless instructed otherwise by your physician. Failure to complete the entire course can result in relapse of your condition. Common side effects of antibiotics include nausea, intestinal cramping, or diarrhea. Women may develop vaginal yeast infections, and babies can get yeast (thrush) in the mouth following the use of antibiotics. Contact your physician if you develop significant side effects from this medication. Allergy to this antibiotic can result in hives, wheezing, faintness, or itching. If symptoms of allergy occur, stop the medication and call the doctor. CEPHALEXIN: The antibiotic you've been prescribed is a member of the cephalosporin class. This type of antibiotic covers a wide variety of infections, including those of the skin, lungs, and urinary tract. It's useful for staph infections. This antibiotic is slightly similar to the penicillin family. In rare cases, a person who is allergic to penicillin will also be allergic to this me dication. If you have had a severe allergic reaction to penicillin, and have not taken this antibiotic since that time, notify your doctor. Antibiotics which cover many germs ("broad spectrum" antibiotics) are more likely to cause diarrhea or "yeast" infections. Women prone to vaginal yeast p roblems may suffer an attack after taking this antibiotic. In infants, oral thrush (white spots "stuck" on the cheek) or yeast diaper rash may result. See your doctor if these problems occur. Call at once if you develop itching, hives, shortness of breath, or lightheadedness. FOLLOW-UP CARE: If you have been referred to a physician for follow-up care, call the physicians office for an appointment as you were instructed or within the next two days. If you experience worsening or a significant change in your symptoms, notify the physician immediately or return to the Emergency Department at any time for re-evaluation. Prescriptions: Cephalexin Monohydrate [Keflex 500 mg Capsule] 500 mg PO Q6H 7 Days #28 capsule Referrals: ALEXANDER WHELAN MD [Primary Care Provider] - Follow up as needed
[2019-03-11 16:16] LABS: APPEARANCE,URINE SLIGHTLY-CLOUDY; BILIRUBIN,URINE NEGATIVE (NEGATIVE); COLOR,URINE YELLOW; GLUCOSE, URINE NEGATIVE (NEGATIVE); KETONES,URINE NEGATIVE (NEGATIVE); LEUKOCYTE ESTERASE,URINE LARGE (NEGATIVE); NITRITE,URINE POSITIVE (NEGATIVE); PROTEIN,URINE NEGATIVE (NEGATIVE); URINE SPECIFIC GRAVITY 1.009; UROBILINOGEN,URINE NEGATIVE mg/dL (<2.0)
[2019-03-11] MEDS ORDERED: CEFTRIAXONE 1 GM/D5W RTU 1 GM/50 ML RTUPB IV ONE (16:31)
[2019-03-11 18:04] VITALS: BP 124/54
== END 2019-03-11 18:04 | disposition home or self-care (01) ==
LOC: ER 13:22
DX: N30.01 Acute cystitis with hematuria (principal); R33.9 Retention of urine, unspecified; I48.91 Unspecified atrial fibrillation; I50.9 Heart failure, unspecified; I11.0 Hypertensive heart disease with heart failure; E11.9 Type 2 diabetes mellitus without complications; I25.2 Old myocardial infarction; Z88.6 Allergy status to analgesic agent; Z95.0 Presence of cardiac pacemaker; Z95.1 Presence of aortocoronary bypass graft; Z90.49 Acquired absence of other specified parts of digestive tract
CPT/HCPCS: 36415; 85025; 80053; 81001; J0696; A9270; 51702; 87086; 87088; 96365; 99283; J3490

== ENCOUNTER → 2019-03-24 | Outpatient (CLI) | payer MEDICARE, OTHER | LOC: LAB 08:55 | PROVIDERS: ATTEND Family Medicine | DX: N30.00 Acute cystitis without hematuria (principal) ==

== ENCOUNTER → 2019-05-04 | Outpatient (CLI) | payer MEDICARE, OTHER ==
[2019-05-04 09:41] LABS: APPEARANCE,URINE CLEAR; BILIRUBIN,URINE NEGATIVE (NEGATIVE); COLOR,URINE YELLOW; GLUCOSE, URINE NEGATIVE (NEGATIVE); KETONES,URINE NEGATIVE (NEGATIVE); LEUKOCYTE ESTERASE,URINE TRACE (NEGATIVE); NITRITE,URINE NEGATIVE (NEGATIVE); PROTEIN,URINE 30 mg/dL (NEGATIVE); URINE SPECIFIC GRAVITY 1.024
[2019-05-04 09:42] LABS: HEMATOCRIT 38.1 % (37.9-51.0); HEMOGLOBIN 12.9 g/dL (13.5-17.0); MEAN CORPUSCULAR HEMOGLOBIN 33.1 pg (27.0-33.4); MEAN CORPUSCULAR VOLUME 97 fl (80-97); RED BLOOD COUNT 3.91 10^6/uL (4.35-5.55); WHITE BLOOD COUNT 6.3 10^3/uL (4.0-10.5)
[2019-05-04 10:09] LABS: ALBUMIN 4.1 g/dL (3.5-5.0); ALKALINE PHOSPHATASE 56 U/L (38-126); ANION GAP 10 (5-19); ASPARTATE AMINO TRANSFERASE 17 U/L (17-59); BILIRUBIN,DIRECT 0.2 mg/dL (0.0-0.4); BILIRUBIN,TOTAL 1.5 mg/dL (0.2-1.3); BLOOD UREA NITROGEN 18 mg/dL (7-20); CALCIUM 8.8 mg/dL (8.4-10.2); CARBON DIOXIDE 27 mmol/L (22-30); CHLORIDE 103 mmol/L (98-107); GLUCOSE 123 mg/dL (75-110); POTASSIUM 4.2 mmol/L (3.6-5.0); TOTAL PROTEIN 7.3 g/dL (6.3-8.2)
[2019-05-04 10:37] LABS: PLATELET COUNT 95 10^3/uL (150-450)
== END ==
LOC: LAB 09:06
PROVIDERS: ATTEND Internal Medicine Cardiovascular Disease
DX: Z79.01 Long term (current) use of anticoagulants (principal); Z79.899 Other long term (current) drug therapy
CPT/HCPCS: 36415; 80048; 80076; 81001; 82272; 85027; 85730

== ENCOUNTER → 2019-06-01 | Outpatient (CLI) | payer MEDICARE, OTHER ==
[2019-06-01 10:03] LABS: ALBUMIN 4.4 g/dL (3.5-5.0); ALKALINE PHOSPHATASE 64 U/L (38-126); ASPARTATE AMINO TRANSFERASE 17 U/L (17-59); BILIRUBIN,TOTAL 1.8 mg/dL (0.2-1.3); CHOLESTEROL 97.41 mg/dL (0-200); TOTAL PROTEIN 7.3 g/dL (6.3-8.2); TRIGLYCERIDES 114 mg/dL (<150)
[2019-06-01 10:15] LABS: DIRECT LDL 62 mg/dL (<100)
[2019-06-01 18:31] LABS: ANION GAP 12 (5-19); BLOOD UREA NITROGEN 18 mg/dL (7-20); CALCIUM 8.9 mg/dL (8.4-10.2); CARBON DIOXIDE 25 mmol/L (22-30); CHLORIDE 105 mmol/L (98-107); GLUCOSE 108 mg/dL (75-110); POTASSIUM 4.4 mmol/L (3.6-5.0)
== END ==
LOC: LAB 09:15
PROVIDERS: ATTEND Internal Medicine Cardiovascular Disease
DX: I50.22 Chronic systolic (congestive) heart failure (principal); R06.02 Shortness of breath; E78.2 Mixed hyperlipidemia; E66.09 Other obesity due to excess calories; I48.20 Chronic atrial fibrillation, unspecified
CPT/HCPCS: 36415; 80048; 80061; 80076; 83880

== ENCOUNTER → 2019-07-09 | Outpatient (CLI) | payer MEDICARE, OTHER ==
[2019-07-09 10:26] LABS: ANION GAP 9 (5-19); BLOOD UREA NITROGEN 15 mg/dL (7-20); CALCIUM 8.9 mg/dL (8.4-10.2); CARBON DIOXIDE 26 mmol/L (22-30); CHLORIDE 105 mmol/L (98-107); GLUCOSE 114 mg/dL (75-110); POTASSIUM 3.8 mmol/L (3.6-5.0)
== END ==
LOC: OD 09:19
PROVIDERS: ATTEND Physician Assistant
DX: I50.22 Chronic systolic (congestive) heart failure (principal); I48.20 Chronic atrial fibrillation, unspecified; Z79.899 Other long term (current) drug therapy
CPT/HCPCS: 36415; 80048; 83880

== ENCOUNTER → 2019-08-04 | Outpatient (CLI) | payer MEDICARE, OTHER ==
[2019-08-04 09:54] LABS: APPEARANCE,URINE CLEAR; BILIRUBIN,URINE NEGATIVE (NEGATIVE); COLOR,URINE YELLOW; GLUCOSE, URINE NEGATIVE (NEGATIVE); KETONES,URINE NEGATIVE (NEGATIVE); LEUKOCYTE ESTERASE,URINE TRACE (NEGATIVE); NITRITE,URINE NEGATIVE (NEGATIVE); PROTEIN,URINE NEGATIVE (NEGATIVE); URINE SPECIFIC GRAVITY 1.017
[2019-08-04 09:58] LABS: HEMOGLOBIN 14.8 g/dL (13.5-17.0); MEAN CORPUSCULAR HEMOGLOBIN 34.8 pg (27.0-33.4); MEAN CORPUSCULAR HGB CONC 35.2 g/dL (32.0-36.0); MEAN CORPUSCULAR VOLUME 99 fl (80-97); RED BLOOD COUNT 4.24 10^6/uL (4.35-5.55); RED CELL DISTRIBUTION WIDTH 15.8 % (11.5-14.0); WHITE BLOOD COUNT 5.9 10^3/uL (4.0-10.5)
[2019-08-04 10:13] LABS: ALBUMIN 4.8 g/dL (3.5-5.0); ALKALINE PHOSPHATASE 62 U/L (38-126); ANION GAP 8 (5-19); ASPARTATE AMINO TRANSFERASE 20 U/L (17-59); BILIRUBIN,DIRECT 0.2 mg/dL (0.0-0.4); BILIRUBIN,TOTAL 2.6 mg/dL (0.2-1.3); BLOOD UREA NITROGEN 22 mg/dL (7-20); CALCIUM 9.3 mg/dL (8.4-10.2); CARBON DIOXIDE 29 mmol/L (22-30); CHLORIDE 101 mmol/L (98-107); GLUCOSE 121 mg/dL (75-110); POTASSIUM 4.6 mmol/L (3.6-5.0); TOTAL PROTEIN 7.9 g/dL (6.3-8.2)
[2019-08-04 10:14] LABS: PLATELET COUNT 111 10^3/uL (150-450)
== END ==
LOC: OD 08:58
PROVIDERS: ATTEND Internal Medicine Cardiovascular Disease
DX: I50.22 Chronic systolic (congestive) heart failure (principal); R06.02 Shortness of breath; Z79.01 Long term (current) use of anticoagulants; Z79.899 Other long term (current) drug therapy
CPT/HCPCS: 36415; 80048; 80076; 81001; 82272; 83880; 85027; 85730

== ENCOUNTER → 2019-08-20 | Outpatient (CLI) | payer MEDICARE, OTHER ==
[2019-08-20 10:19] LABS: ANION GAP 9 (5-19); BLOOD UREA NITROGEN 22 mg/dL (7-20); CALCIUM 8.9 mg/dL (8.4-10.2); CARBON DIOXIDE 26 mmol/L (22-30); CHLORIDE 103 mmol/L (98-107); GLUCOSE 103 mg/dL (75-110); POTASSIUM 4.9 mmol/L (3.6-5.0)
== END ==
LOC: OD 09:23
PROVIDERS: ATTEND Internal Medicine Cardiovascular Disease
DX: I50.22 Chronic systolic (congestive) heart failure (principal); E87.5 Hyperkalemia
CPT/HCPCS: 36415; 80048; 83880

== ENCOUNTER → 2019-11-07 | Outpatient (CLI) | payer MEDICARE, OTHER ==
[2019-11-07 11:05] LABS: AMORPHOUS SEDIMENT,URINE TRACE /HPF; APPEARANCE,URINE CLOUDY; BILIRUBIN,URINE NEGATIVE (NEGATIVE); COLOR,URINE YELLOW; GLUCOSE, URINE NEGATIVE (NEGATIVE); KETONES,URINE NEGATIVE (NEGATIVE); LEUKOCYTE ESTERASE,URINE NEGATIVE (NEGATIVE); NITRITE,URINE NEGATIVE (NEGATIVE); PROTEIN,URINE NEGATIVE (NEGATIVE); URINE SPECIFIC GRAVITY 1.018
[2019-11-07 11:09] LABS: HEMATOCRIT 39.3 % (37.9-51.0); HEMOGLOBIN 13.6 g/dL (13.5-17.0); MEAN CORPUSCULAR HEMOGLOBIN 35.5 pg (27.0-33.4); MEAN CORPUSCULAR HGB CONC 34.6 g/dL (32.0-36.0); MEAN CORPUSCULAR VOLUME 103 fl (80-97); PLATELET COUNT 124 10^3/uL (150-450); RED BLOOD COUNT 3.83 10^6/uL (4.35-5.55); WHITE BLOOD COUNT 6.2 10^3/uL (4.0-10.5)
[2019-11-07 11:26] LABS: ALBUMIN 4.6 g/dL (3.5-5.0); ALKALINE PHOSPHATASE 64 U/L (38-126); ANION GAP 11 (5-19); ASPARTATE AMINO TRANSFERASE 17 U/L (17-59); BILIRUBIN,DIRECT 0.1 mg/dL (0.0-0.4); BILIRUBIN,TOTAL 2.2 mg/dL (0.2-1.3); BLOOD UREA NITROGEN 24 mg/dL (7-20); CALCIUM 9.4 mg/dL (8.4-10.2); CARBON DIOXIDE 26 mmol/L (22-30); CHLORIDE 103 mmol/L (98-107); GLUCOSE 124 mg/dL (75-110); TOTAL PROTEIN 7.7 g/dL (6.3-8.2)
[2019-11-09 11:41] LABS: ANION GAP 9 (5-19); BLOOD UREA NITROGEN 22 mg/dL (7-20); CALCIUM 8.8 mg/dL (8.4-10.2); CARBON DIOXIDE 28 mmol/L (22-30); CHLORIDE 102 mmol/L (98-107); GLUCOSE 107 mg/dL (75-110)
== END ==
LOC: OD 09:39
PROVIDERS: ATTEND Internal Medicine Cardiovascular Disease
DX: E87.5 Hyperkalemia (principal); Z79.01 Long term (current) use of anticoagulants; I50.22 Chronic systolic (congestive) heart failure; R06.02 Shortness of breath; Z79.899 Other long term (current) drug therapy
CPT/HCPCS: 36415; 80048; 80076; 81001; 82272; 83880; 85027; 85730

== ENCOUNTER → 2019-12-28 | Outpatient (CLI) | payer MEDICARE, OTHER ==
[2019-12-28 11:23] LABS: HEMATOCRIT 37.7 % (37.9-51.0); HEMOGLOBIN 13.3 g/dL (13.5-17.0); MEAN CORPUSCULAR HGB CONC 35.2 g/dL (32.0-36.0); MEAN CORPUSCULAR VOLUME 102 fl (80-97); PLATELET COUNT 111 10^3/uL (150-450); RED BLOOD COUNT 3.68 10^6/uL (4.35-5.55); RED CELL DISTRIBUTION WIDTH 16.7 % (11.5-14.0); WHITE BLOOD COUNT 5.3 10^3/uL (4.0-10.5)
[2019-12-28 11:31] LABS: APPEARANCE,URINE SLIGHTLY-CLOUDY; BILIRUBIN,URINE NEGATIVE (NEGATIVE); COLOR,URINE YELLOW; GLUCOSE, URINE NEGATIVE (NEGATIVE); KETONES,URINE NEGATIVE (NEGATIVE); LEUKOCYTE ESTERASE,URINE NEGATIVE (NEGATIVE); NITRITE,URINE NEGATIVE (NEGATIVE); PROTEIN,URINE NEGATIVE (NEGATIVE); URINE SPECIFIC GRAVITY 1.014
[2019-12-28 11:52] LABS: ALBUMIN 4.2 g/dL (3.5-5.0); ALKALINE PHOSPHATASE 60 U/L (38-126); ANION GAP 10 (5-19); ASPARTATE AMINO TRANSFERASE 16 U/L (17-59); BILIRUBIN,DIRECT 0.5 mg/dL (0.0-0.4); BILIRUBIN,TOTAL 2.2 mg/dL (0.2-1.3); BLOOD UREA NITROGEN 25 mg/dL (7-20); CALCIUM 9.2 mg/dL (8.4-10.2); CARBON DIOXIDE 25 mmol/L (22-30); CHLORIDE 102 mmol/L (98-107); GLUCOSE 132 mg/dL (75-110); POTASSIUM 4.6 mmol/L (3.6-5.0)
== END ==
LOC: OD 10:23
PROVIDERS: ATTEND Internal Medicine Cardiovascular Disease
DX: Z79.01 Long term (current) use of anticoagulants (principal); R06.02 Shortness of breath; I50.22 Chronic systolic (congestive) heart failure; Z79.899 Other long term (current) drug therapy
CPT/HCPCS: 36415; 80048; 80076; 81001; 82272; 83880; 85027; 85730

== ENCOUNTER → 2020-02-09 | Outpatient (CLI) | payer MEDICARE, OTHER ==
[2020-02-09 12:38] LABS: ANION GAP 10 (5-19); BLOOD UREA NITROGEN 20 mg/dL (7-20); CALCIUM 9.2 mg/dL (8.4-10.2); CARBON DIOXIDE 24 mmol/L (22-30); CHLORIDE 106 mmol/L (98-107); GLUCOSE 119 mg/dL (75-110); POTASSIUM 4.4 mmol/L (3.6-5.0)
== END ==
LOC: OD 10:53
PROVIDERS: ATTEND Physician Assistant
DX: I50.22 Chronic systolic (congestive) heart failure (principal); E87.5 Hyperkalemia
CPT/HCPCS: 36415; 80048; 83880

== ENCOUNTER → 2020-04-09 | Outpatient (CLI) | payer MEDICARE, OTHER ==
[2020-04-09 12:34] LABS: TRIGLYCERIDES 134 mg/dL (<150)
[2020-04-09 12:46] LABS: DIRECT LDL 126 mg/dL (<100)
== END ==
LOC: OD 10:43
PROVIDERS: ATTEND Physician Assistant
DX: I50.22 Chronic systolic (congestive) heart failure (principal); E78.2 Mixed hyperlipidemia; Z79.899 Other long term (current) drug therapy
CPT/HCPCS: 36415; 80061; 83880